=== PATIENT | male | born 1965 | race Caucasian/White ===

== ENCOUNTER 2021-02-14 12:21 | Inpatient (IN) ==
[2021-02-14 15:03] LABS: Basophils % 0.4 % (0.0-0.8); Hematocrit 32.9 VOL% (42.0-52.0); Hemoglobin 11.2 GM/DL (14.0-18.0); Immature Granulocytes % 0.4 %; Immature Granulocytes Absolute 0.01 #; Lymphocytes # 0.3 10*3/uL (1.4-4.0); Lymphocytes % 12.9 % (21.2-54.2); Mean Platelet Volume 11.6 FL (9.6-12.0); Monocytes % 5.9 % (1.7-12.7); Neutrophils % 80.4 % (38.7-73.9); Platelet Count 127 T/CUMM (130-400); Red Cell Distribution Width 12.7 % (9.3-17.3); White Blood Count 2.6 T/CUMM (4-12)
[2021-02-14 15:19] LABS: Calcium 7.8 MG/DL (8.5-10.1); Osmolality,Calculated 264.5 MOS/KG (273-304); Potassium 3.7 MMOL/L (3.5-5.1)
[2021-02-14] MEDS ORDERED: DEXTROSE 50% 25 GM/50 ML VIAL IV PRN (18:17)
[2021-02-14] MEDS ORDERED: GLUCAGON 1 MG VIAL IM PRN (18:17)
[2021-02-14] MEDS ORDERED: KETOROLAC 30 MG/1 ML VIAL IV ONE (18:17)
[2021-02-14] MEDS ORDERED: ONDANSETRON 4 MG/2 ML VIAL IV PRN (18:17)
[2021-02-14] MEDS ORDERED: NICOTINE 21 MG/24 HR PATCH TRANSDERM PRN (18:40)
[2021-02-14] MEDS: AZITHROMYCIN INJ 500 MG in SODIUM CHLORIDE 0.9% 250 ML IV SCH (18:49)
[2021-02-14] MEDS: ACETAMINOPHEN 325 MG TABLET PO PRN (21:40)
[2021-02-14] MEDS: SODIUM CHLORIDE 0.9% 1,000 ML IV SCH (21:41)
[2021-02-14] MEDS: cefTRIAXone 1,000 MG in SODIUM CHLORIDE 0.9% 100 ML IV SCH (21:41)
[2021-02-14 22:02] LABS: Basophils % 0.4 % (0.0-0.8); Eosinophils # 0.2 10*3/uL (0.0-0.87); Eosinophils % 7.9 % (0.00-10.9); Hematocrit 33.5 VOL% (42.0-52.0); Hemoglobin 11.1 GM/DL (14.0-18.0); Immature Granulocytes % 0.8 %; Immature Granulocytes Absolute 0.02 #; Lymphocytes # 0.2 10*3/uL (1.4-4.0); Lymphocytes % 8.6 % (21.2-54.2); Mean Corpuscular HGB Conc 33.1 GM/DL (32-36); Mean Corpuscular Volume 95.4 FL (87-102); Mean Platelet Volume 11.5 FL (9.6-12.0); Monocytes % 4.5 % (1.7-12.7); Neutrophils % 77.8 % (38.7-73.9); Platelet Count 124 T/CUMM (130-400); Red Blood Count 3.51 MC/CUMM (3.8-5.5); White Blood Count 2.7 T/CUMM (4-12)
[2021-02-14 22:20] LABS: PT Patient Result 11.6 SECS (10.5-12.0); Partial Thromboplastin Time 32.7 SECS (23.8-32.1)
[2021-02-14 23:30] LABS: Platelet Estimate Adequate
[2021-02-15] MEDS: SODIUM CHLORIDE 0.9% 1,000 ML IV SCH (05:47)
[2021-02-15 07:18] LABS: Basophils % 0.4 % (0.0-0.8); Eosinophils # 0.2 10*3/uL (0.0-0.87); Eosinophils % 7.4 % (0.00-10.9); Hematocrit 33.1 VOL% (42.0-52.0); Hemoglobin 11.5 GM/DL (14.0-18.0); Immature Granulocytes % 0.4 %; Immature Granulocytes Absolute 0.01 #; Lymphocytes # 0.4 10*3/uL (1.4-4.0); Mean Corpuscular HGB Conc 34.7 GM/DL (32-36); Mean Platelet Volume 11.9 FL (9.6-12.0); Monocytes % 6.3 % (1.7-12.7); Neutrophils % 72.5 % (38.7-73.9); Platelet Count 106 T/CUMM (130-400); Red Blood Count 3.52 MC/CUMM (3.8-5.5); Red Cell Distribution Width 12.6 % (9.3-17.3); White Blood Count 2.9 T/CUMM (4-12)
[2021-02-15 07:37] LABS: Albumin 2.4 G/DL (3.4-5.0); Bilirubin,Total 0.7 MG/DL (0.20-1.00); Calcium 7.7 MG/DL (8.5-10.1); Osmolality,Calculated 267.2 MOS/KG (273-304); Potassium 4.1 MMOL/L (3.5-5.1)
[2021-02-15 07:46] LABS: Eosinophils 3 % (0-10); Lymphocytes 7 % (20-55); Segmented Neutrophils 83 % (50-85); Total Cells Counted 100
[2021-02-15 07:47] LABS: Hypochromia Slight; Microcytosis Slight; Platelet Estimate Decreased
[2021-02-15 09:37] LABS: Hemoglobin A1 (Alkaline) 98.1 % (96.5-98.5); Hemoglobin A2 (Alkaline) 1.9 % (1.5-3.5)
[2021-02-15 09:42] LABS: Sedimentation Rate-Westergren 57 MM/HR (0-20)
[2021-02-15] MEDS: ACETAMINOPHEN 325 MG TABLET PO PRN ×2 (09:49→22:26)
[2021-02-15] MEDS: PANTOPRAZOLE 40 MG TABLET PO SCH (11:22)
[2021-02-15] MEDS ORDERED: DIAZEPAM 5 MG TABLET PO ONE (12:38)
[2021-02-15] MEDS: SODIUM CHLORIDE 0.45% 1,000 ML IV SCH (13:40)
[2021-02-15 17:43] LABS: Folate 5.85 NG/ML (5.38-24.0); Vitamin B12 302 PG/ML (211-911)
[2021-02-15] MEDS: AZITHROMYCIN INJ 500 MG in SODIUM CHLORIDE 0.9% 250 ML IV SCH (18:52)
[2021-02-15] MEDS: cefTRIAXone 1,000 MG in SODIUM CHLORIDE 0.9% 100 ML IV SCH (22:27)
[2021-02-16 04:33] LABS: Basophils % 0.4 % (0.0-0.8); Eosinophils # 0.1 10*3/uL (0.0-0.87); Eosinophils % 3.1 % (0.00-10.9); Hematocrit 34.5 VOL% (42.0-52.0); Hemoglobin 11.4 GM/DL (14.0-18.0); Immature Granulocytes % 0.4 %; Immature Granulocytes Absolute 0.01 #; Lymphocytes # 0.3 10*3/uL (1.4-4.0); Lymphocytes % 13.3 % (21.2-54.2); Mean Corpuscular Volume 95.6 FL (87-102); Mean Platelet Volume 11.7 FL (9.6-12.0); Monocytes % 3.6 % (1.7-12.7); Neutrophils % 79.2 % (38.7-73.9); Platelet Count 119 T/CUMM (130-400); Red Blood Count 3.61 MC/CUMM (3.8-5.5); Red Cell Distribution Width 12.8 % (9.3-17.3); White Blood Count 2.3 T/CUMM (4-12)
[2021-02-16 04:56] LABS: Calcium 7.7 MG/DL (8.5-10.1); Osmolality,Calculated 260.7 MOS/KG (273-304); Potassium 3.6 MMOL/L (3.5-5.1)
[2021-02-16 04:58] LABS: Band Neutrophils 3 % (0-10); Lymphocytes 3 % (20-55); Segmented Neutrophils 87 % (50-85); Total Cells Counted 100
[2021-02-16 04:59] LABS: Platelet Estimate Normal
[2021-02-16] MEDS: PANTOPRAZOLE 40 MG TABLET PO SCH (09:13)
[2021-02-16] MEDS: ACETAMINOPHEN 325 MG TABLET PO PRN (09:19)
[2021-02-16 14:51] LABS: Bilirubin,Urine Negative (Negative); Blood, Urine Negative (Negative); Glucose,Urine (UA) Negative (Negative); Ketones,Urine Negative (Negative); Mucus,Urine Occasional /LPF (Occasional); Nitrite,Urine Negative (Negative); Protein,Urine Negative; RBC,Urine 1 /HPF (0-4); Squamous Epithelial Cell,Urine Occasional /HPF (0-10); Urine Appearance CLEAR (Clear); Urine Color Amber (Yellow); Urine Specific Gravity 1.017 (1.001-1.035)
[2021-02-16] MEDS: SODIUM CHLORIDE 0.45% 1,000 ML IV SCH (15:59)
[2021-02-16] MEDS: AZITHROMYCIN INJ 500 MG in SODIUM CHLORIDE 0.9% 250 ML IV SCH (19:29)
[2021-02-16] MEDS: cefTRIAXone 1,000 MG in SODIUM CHLORIDE 0.9% 100 ML IV SCH (20:46)
[2021-02-17] MEDS: IBUPROFEN 600 MG TABLET PO PRN ×2 (05:23→15:39)
[2021-02-17 05:29] LABS: Basophils % 0.4 % (0.0-0.8); Eosinophils % 1.5 % (0.00-10.9); Hematocrit 35.1 VOL% (42.0-52.0); Hemoglobin 11.9 GM/DL (14.0-18.0); Immature Granulocytes % 0.4 %; Immature Granulocytes Absolute 0.01 #; Lymphocytes # 0.4 10*3/uL (1.4-4.0); Lymphocytes % 16.5 % (21.2-54.2); Mean Corpuscular HGB Conc 33.9 GM/DL (32-36); Mean Corpuscular Volume 93.9 FL (87-102); Monocytes % 5.7 % (1.7-12.7); Neutrophils % 75.5 % (38.7-73.9); Platelet Count 116 T/CUMM (130-400); Red Blood Count 3.74 MC/CUMM (3.8-5.5); Red Cell Distribution Width 12.6 % (9.3-17.3); White Blood Count 2.6 T/CUMM (4-12)
[2021-02-17 05:45] LABS: Calcium 7.9 MG/DL (8.5-10.1); Osmolality,Calculated 253.2 MOS/KG (273-304); Potassium 3.7 MMOL/L (3.5-5.1)
[2021-02-17 06:40] LABS: Band Neutrophils 3 % (0-10); Lymphocytes 20 % (20-55); Platelet Estimate Adequate; Schistocytes Slight; Segmented Neutrophils 69 % (50-85); Total Cells Counted 100
[2021-02-17] MEDS: PANTOPRAZOLE 40 MG TABLET PO SCH (10:07)
[2021-02-17] MEDS ORDERED: MAGNESIUM SULF RIDER 4 GM/100 ML PREMIX IV PRN (10:28)
[2021-02-17] MEDS ORDERED: MAGNESIUM SULF RIDER 2 GM/50 ML PREMIX IV PRN (10:28)
[2021-02-17] MEDS: MICAFUNGIN 100 MG in SODIUM CHLORIDE 0.9% 100 ML IV SCH (11:58)
[2021-02-17] MEDS: CEFEPIME 1,000 MG in SODIUM CHLORIDE 0.9% 100 ML IV SCH ×3 (13:11→23:35)
[2021-02-17] MEDS: VANCOMYCIN INJ 1,000 MG in SODIUM CHLORIDE 0.9% 250 ML IV SCH (13:53)
[2021-02-17 16:31] LABS: M. Tuberculosis PCR Result Negative (Negative); M. Tuberculosis PCR Source SPUTUM
[2021-02-18] MEDS: VANCOMYCIN INJ 1,000 MG in SODIUM CHLORIDE 0.9% 250 ML IV SCH ×2 (00:31→16:40)
[2021-02-18] MEDS: IBUPROFEN 600 MG TABLET PO PRN ×2 (05:43→17:08)
[2021-02-18] MEDS: CEFEPIME 1,000 MG in SODIUM CHLORIDE 0.9% 100 ML IV SCH ×3 (05:43→20:54)
[2021-02-18 07:06] LABS: Hematocrit 31.4 VOL% (42.0-52.0); Hemoglobin 11.2 GM/DL (14.0-18.0); Immature Granulocytes % 0.4 %; Immature Granulocytes Absolute 0.01 #; Lymphocytes # 0.4 10*3/uL (1.4-4.0); Lymphocytes % 15.3 % (21.2-54.2); Mean Corpuscular HGB Conc 35.7 GM/DL (32-36); Mean Corpuscular Volume 91.5 FL (87-102); Mean Platelet Volume 12.7 FL (9.6-12.0); Monocytes % 4.1 % (1.7-12.7); Neutrophils % 80.2 % (38.7-73.9); Platelet Count 103 T/CUMM (130-400); Red Blood Count 3.43 MC/CUMM (3.8-5.5); Red Cell Distribution Width 12.5 % (9.3-17.3); White Blood Count 2.7 T/CUMM (4-12)
[2021-02-18 07:35] LABS: Calcium 7.5 MG/DL (8.5-10.1); Osmolality,Calculated 251.4 MOS/KG (273-304); Potassium 3.6 MMOL/L (3.5-5.1)
[2021-02-18 09:07] LABS: Ovalocytes Slight; Platelet Estimate Adequate; Polychromasia Slight
[2021-02-18] MEDS: PANTOPRAZOLE 40 MG TABLET PO SCH (09:24)
[2021-02-18] MEDS: SODIUM CHLORIDE 0.9% 1,000 ML IV SCH (12:30)
[2021-02-18] MEDS: MICAFUNGIN 100 MG in SODIUM CHLORIDE 0.9% 100 ML IV SCH (12:31)
[2021-02-19] MEDS: IBUPROFEN 600 MG TABLET PO PRN (04:48)
[2021-02-19] MEDS: VANCOMYCIN INJ 1,000 MG in SODIUM CHLORIDE 0.9% 250 ML IV SCH (04:48)
[2021-02-19 05:30] LABS: Basophils % 0.4 % (0.0-0.8); Eosinophils # 0.1 10*3/uL (0.0-0.87); Eosinophils % 2.2 % (0.00-10.9); Hemoglobin 11.6 GM/DL (14.0-18.0); Immature Granulocytes % 1.1 %; Immature Granulocytes Absolute 0.03 #; Lymphocytes # 0.3 10*3/uL (1.4-4.0); Lymphocytes % 11.1 % (21.2-54.2); Mean Corpuscular HGB Conc 34.1 GM/DL (32-36); Mean Corpuscular Volume 91.6 FL (87-102); Mean Platelet Volume 12.9 FL (9.6-12.0); Monocytes % 3.6 % (1.7-12.7); Neutrophils % 81.6 % (38.7-73.9); Platelet Count 107 T/CUMM (130-400); Red Blood Count 3.71 MC/CUMM (3.8-5.5); Red Cell Distribution Width 12.7 % (9.3-17.3); White Blood Count 2.8 T/CUMM (4-12)
[2021-02-19 05:50] LABS: Calcium 7.3 MG/DL (8.5-10.1); Osmolality,Calculated 257.8 MOS/KG (273-304); Potassium 3.7 MMOL/L (3.5-5.1)
[2021-02-19 05:57] LABS: Band Neutrophils 2 % (0-10); Eosinophils 2 % (0-10); Hypochromia Slight; Lymphocytes 4 % (20-55); Microcytosis Slight; Platelet Estimate Decreased; Segmented Neutrophils 85 % (50-85); Total Cells Counted 100
[2021-02-19] MEDS: CEFEPIME 1,000 MG in SODIUM CHLORIDE 0.9% 100 ML IV SCH ×4 (06:30→21:44)
[2021-02-19] MEDS: SODIUM CHLORIDE 0.9% 1,000 ML IV SCH ×2 (07:02→19:18)
[2021-02-19] MEDS: PANTOPRAZOLE 40 MG TABLET PO SCH (09:59)
[2021-02-19] MEDS ORDERED: DIAZEPAM 5 MG TABLET PO ONE (10:34)
[2021-02-19] MEDS: MICAFUNGIN 100 MG in SODIUM CHLORIDE 0.9% 100 ML IV SCH (11:09)
[2021-02-19] MEDS: FLUCONAZOLE INJ 400 MG/200 ML PREMIX IV SCH (16:37)
[2021-02-20] MEDS: SODIUM CHLORIDE 0.9% 1,000 ML IV SCH (02:35)
[2021-02-20] MEDS: CEFEPIME 1,000 MG in SODIUM CHLORIDE 0.9% 100 ML IV SCH ×4 (02:35→21:29)
[2021-02-20 06:19] LABS: Basophils % 0.5 % (0.0-0.8); Hematocrit 35.1 VOL% (42.0-52.0); Hemoglobin 11.8 GM/DL (14.0-18.0); Immature Granulocytes Absolute 0.04 #; Lymphocytes # 0.3 10*3/uL (1.4-4.0); Lymphocytes % 8.5 % (21.2-54.2); Mean Corpuscular HGB Conc 33.6 GM/DL (32-36); Mean Corpuscular Volume 93.6 FL (87-102); Monocytes % 5.2 % (1.7-12.7); Neutrophils % 84.8 % (38.7-73.9); Platelet Count 119 T/CUMM (130-400); Red Blood Count 3.75 MC/CUMM (3.8-5.5); White Blood Count 3.9 T/CUMM (4-12)
[2021-02-20 06:45] LABS: Lymphocytes 6 % (20-55); Platelet Estimate Normal; Segmented Neutrophils 83 % (50-85); Total Cells Counted 100
[2021-02-20 06:50] LABS: Calcium 7.8 MG/DL (8.5-10.1); Osmolality,Calculated 255.1 MOS/KG (273-304); Potassium 3.5 MMOL/L (3.5-5.1)
[2021-02-20] MEDS: PANTOPRAZOLE 40 MG TABLET PO SCH (08:39)
[2021-02-20] MEDS ORDERED: FUROSEMIDE 40 MG/4 ML VIAL IV ONE (08:52)
[2021-02-20] MEDS: FLUCONAZOLE INJ 400 MG/200 ML PREMIX IV SCH (15:20)
[2021-02-21] MEDS: CEFEPIME 1,000 MG in SODIUM CHLORIDE 0.9% 100 ML IV SCH ×4 (02:50→21:26)
[2021-02-21 05:43] LABS: Basophils % 0.7 % (0.0-0.8); Eosinophils # 0.1 10*3/uL (0.0-0.87); Eosinophils % 1.7 % (0.00-10.9); Hemoglobin 10.9 GM/DL (14.0-18.0); Immature Granulocytes Absolute 0.04 #; Lymphocytes # 0.3 10*3/uL (1.4-4.0); Lymphocytes % 7.7 % (21.2-54.2); Mean Corpuscular HGB Conc 35.2 GM/DL (32-36); Mean Corpuscular Volume 91.4 FL (87-102); Mean Platelet Volume 12.8 FL (9.6-12.0); Monocytes % 5.5 % (1.7-12.7); Neutrophils % 83.4 % (38.7-73.9); Platelet Count 107 T/CUMM (130-400); Red Blood Count 3.39 MC/CUMM (3.8-5.5); Red Cell Distribution Width 13.1 % (9.3-17.3)
[2021-02-21 05:59] LABS: Calcium 7.8 MG/DL (8.5-10.1); Osmolality,Calculated 257.1 MOS/KG (273-304); Potassium 3.3 MMOL/L (3.5-5.1)
[2021-02-21] MEDS ORDERED: POTASSIUM CHLORIDE 20 MEQ TABLET PO ONE ×2 (09:00→16:00)
[2021-02-21] MEDS: PANTOPRAZOLE 40 MG TABLET PO SCH (09:35)
[2021-02-21] MEDS: FLUCONAZOLE INJ 400 MG/200 ML PREMIX IV SCH (15:53)
[2021-02-21] MEDS ORDERED: DEXTROSE 5% IV SCH (16:30)
[2021-02-21] MEDS ORDERED: AMPHOTERICIN B LIPOSOMAL IV SCH (16:30)
[2021-02-21] MEDS ORDERED: FLUCYTOSINE 500 MG CAPSULE PO SCH (18:00)
[2021-02-22] MEDS: CEFEPIME 1,000 MG in SODIUM CHLORIDE 0.9% 100 ML IV SCH ×2 (02:12→11:00)
[2021-02-22 05:44] LABS: Basophils % 0.7 % (0.0-0.8); Eosinophils # 0.1 10*3/uL (0.0-0.87); Eosinophils % 2.6 % (0.00-10.9); Hematocrit 30.2 VOL% (42.0-52.0); Hemoglobin 10.5 GM/DL (14.0-18.0); Immature Granulocytes % 1.2 %; Immature Granulocytes Absolute 0.05 #; Lymphocytes # 0.4 10*3/uL (1.4-4.0); Lymphocytes % 8.7 % (21.2-54.2); Mean Corpuscular HGB Conc 34.8 GM/DL (32-36); Mean Corpuscular Volume 91.8 FL (87-102); Mean Platelet Volume 12.9 FL (9.6-12.0); Neutrophils % 81.8 % (38.7-73.9); Platelet Count 97 T/CUMM (130-400); Red Blood Count 3.29 MC/CUMM (3.8-5.5); Red Cell Distribution Width 13.2 % (9.3-17.3); White Blood Count 4.2 T/CUMM (4-12)
[2021-02-22 06:05] LABS: Calcium 7.9 MG/DL (8.5-10.1); Osmolality,Calculated 255.2 MOS/KG (273-304); Potassium 3.8 MMOL/L (3.5-5.1)
[2021-02-22 06:07] LABS: Eosinophils 6 % (0-10); Lymphocytes 9 % (20-55); Platelet Estimate Decreased; Segmented Neutrophils 82 % (50-85); Total Cells Counted 100
[2021-02-22 06:08] LABS: Hypochromia Slight
[2021-02-22] MEDS ORDERED: FUROSEMIDE 40 MG/4 ML VIAL IV ONE (07:49)
[2021-02-22 09:49] LABS: Appearance,CSF Clear; Lymphocytes,CSF 89 %; Neutrophils,CSF 11 %; Red Blood Cell,CSF 1269 C/CUMM; White Blood Cell,CSF 14 C/CUMM
[2021-02-22] MEDS: SODIUM CHLORIDE 1 GM TABLET PO SCH ×2 (09:56→21:24)
[2021-02-22] MEDS: PANTOPRAZOLE 40 MG TABLET PO SCH (09:57)
[2021-02-22 10:17] LABS: Albumin 1.8 G/DL (3.4-5.0); Bilirubin,Direct 0.42 MG/DL (0.0-0.20); Bilirubin,Indirect 0.7 MG/DL (0.0-1.0); Bilirubin,Total 1.1 MG/DL (0.20-1.00); Total Protein 5.1 G/DL (6.4-8.2)
[2021-02-22] MEDS ORDERED: MAGNESIUM SULF RIDER 1 GM/100 ML PREMIX IV ONE (11:00)
[2021-02-22] MEDS: SULFAMETHOX/TRIMETHOPRIM 800-160 MG TABLET PO SCH (11:01)
[2021-02-22] MEDS: AMPHOTERICIN B LIPOSOMAL IV SCH (12:10)
[2021-02-22] MEDS: DEXTROSE 5% IV SCH (12:10)
[2021-02-22] MEDS: FLUCYTOSINE 500 MG CAPSULE PO SCH ×3 (12:11→21:25)
[2021-02-22] MEDS ORDERED: FLUCONAZOLE INJ 400 MG/200 ML PREMIX IV SCH (15:00)
[2021-02-23] MEDS: FLUCYTOSINE 500 MG CAPSULE PO SCH ×4 (03:43→23:19)
[2021-02-23 05:35] LABS: Basophils % 0.6 % (0.0-0.8); Eosinophils # 0.2 10*3/uL (0.0-0.87); Hematocrit 30.9 VOL% (42.0-52.0); Hemoglobin 10.5 GM/DL (14.0-18.0); Immature Granulocytes % 1.2 %; Immature Granulocytes Absolute 0.06 #; Lymphocytes # 0.3 10*3/uL (1.4-4.0); Lymphocytes % 5.9 % (21.2-54.2); Mean Corpuscular Volume 92.2 FL (87-102); Mean Platelet Volume 13.8 FL (9.6-12.0); Monocytes % 4.7 % (1.7-12.7); Neutrophils % 83.6 % (38.7-73.9); Red Blood Count 3.35 MC/CUMM (3.8-5.5); Red Cell Distribution Width 13.3 % (9.3-17.3); White Blood Count 4.9 T/CUMM (4-12)
[2021-02-23 05:42] LABS: Albumin 1.8 G/DL (3.4-5.0); Calcium 7.7 MG/DL (8.5-10.1); Osmolality,Calculated 260.8 MOS/KG (273-304); Potassium 3.8 MMOL/L (3.5-5.1); Total Protein 5.1 G/DL (6.4-8.2)
[2021-02-23 05:47] LABS: Platelet Count 90 T/CUMM (130-400)
[2021-02-23 06:09] LABS: Platelet Estimate Decreased
[2021-02-23 06:10] LABS: Anisocytosis 1+; Helmet Cells Few; Macrocytosis Slight; Polychromasia Slight
[2021-02-23] MEDS: SODIUM CHLORIDE 1 GM TABLET PO SCH ×2 (10:05→21:24)
[2021-02-23] MEDS: SULFAMETHOX/TRIMETHOPRIM 800-160 MG TABLET PO SCH (10:06)
[2021-02-23] MEDS: PANTOPRAZOLE 40 MG TABLET PO SCH (10:06)
[2021-02-23] MEDS: DEXTROSE 5% IV SCH (14:24)
[2021-02-23] MEDS: AMPHOTERICIN B LIPOSOMAL IV SCH (14:24)
[2021-02-23 17:26] LABS: % CD4 (T Cells) 6 % (32-64); % CD8 (T Cells) 57 % (11-40); 4/8 Ratio 0.1 (>=0.9)
[2021-02-23] MEDS: POTASSIUM CHLORIDE 10 MEQ TABLET PO SCH (17:34)
[2021-02-23 19:20] LABS: CSF Crypto neoforman/gatti PCR Positive (Negative); CSF Cytomegalovirus PCR Negative (Negative); CSF Enterovirus PCR Negative (Negative); CSF Escherichia coli K1 PCR Negative (Negative); CSF Haemophilus influenzae PCR Negative (Negative); CSF Herpes Simplex Virus 1 PCR Negative (Negative); CSF Herpes Simplex Virus 2 PCR Negative (Negative); CSF Human Herpes Virus 6 PCR Negative (Negative); CSF Human Parechovirus PCR Negative (Negative); CSF Listeria monocytogenes PCR Negative (Negative); CSF Neisseria meningitidis PCR Negative (Negative); CSF Streptococcus agalacti PCR Negative (Negative); CSF Streptococcus pneumon PCR Negative (Negative); CSF Varicella Zoster Virus PCR Negative (Negative); Specimen source CEREBROSPINAL FLUID
[2021-02-24] MEDS: FLUCYTOSINE 500 MG CAPSULE PO SCH ×4 (06:16→23:39)
[2021-02-24 07:18] LABS: Albumin 1.9 G/DL (3.4-5.0); Calcium 8.4 MG/DL (8.5-10.1); Osmolality,Calculated 266.5 MOS/KG (273-304); Potassium 4.2 MMOL/L (3.5-5.1); Total Protein 5.5 G/DL (6.4-8.2)
[2021-02-24 08:53] LABS: Basophils % 0.6 % (0.0-0.8); Hematocrit 32.1 VOL% (42.0-52.0); Hemoglobin 10.8 GM/DL (14.0-18.0); Immature Granulocytes % 1.3 %; Immature Granulocytes Absolute 0.06 #; Lymphocytes # 0.4 10*3/uL (1.4-4.0); Lymphocytes % 8.9 % (21.2-54.2); Mean Corpuscular HGB Conc 33.6 GM/DL (32-36); Mean Corpuscular Volume 93.3 FL (87-102); Mean Platelet Volume 13.1 FL (9.6-12.0); Monocytes % 7.4 % (1.7-12.7); Neutrophils % 81.8 % (38.7-73.9); Red Blood Count 3.44 MC/CUMM (3.8-5.5); Red Cell Distribution Width 13.7 % (9.3-17.3); White Blood Count 4.6 T/CUMM (4-12)
[2021-02-24 08:54] LABS: Platelet Count 92 T/CUMM (130-400)
[2021-02-24] MEDS: PANTOPRAZOLE 40 MG TABLET PO SCH (10:03)
[2021-02-24] MEDS: POTASSIUM CHLORIDE 10 MEQ TABLET PO SCH ×2 (10:03→17:46)
[2021-02-24] MEDS: SULFAMETHOX/TRIMETHOPRIM 800-160 MG TABLET PO SCH (10:03)
[2021-02-24] MEDS: SODIUM CHLORIDE 1 GM TABLET PO SCH ×2 (10:03→21:15)
[2021-02-24] MEDS: MEGESTROL 40 MG TABLET PO SCH ×2 (12:01→21:15)
[2021-02-24] MEDS: DEXTROSE 5% IV SCH (15:04)
[2021-02-24] MEDS: AMPHOTERICIN B LIPOSOMAL IV SCH (15:04)
[2021-02-25 05:43] LABS: Basophils % 0.7 % (0.0-0.8); Eosinophils # 0.1 10*3/uL (0.0-0.87); Eosinophils % 1.9 % (0.00-10.9); Hematocrit 33.4 VOL% (42.0-52.0); Hemoglobin 11.2 GM/DL (14.0-18.0); Immature Granulocytes % 1.5 %; Immature Granulocytes Absolute 0.09 #; Lymphocytes # 0.5 10*3/uL (1.4-4.0); Lymphocytes % 8.9 % (21.2-54.2); Mean Corpuscular HGB Conc 33.5 GM/DL (32-36); Mean Platelet Volume 13.6 FL (9.6-12.0); Monocytes % 5.6 % (1.7-12.7); Neutrophils % 81.4 % (38.7-73.9); Red Blood Count 3.48 MC/CUMM (3.8-5.5); Red Cell Distribution Width 14.1 % (9.3-17.3); White Blood Count 5.9 T/CUMM (4-12)
[2021-02-25 05:51] LABS: Platelet Count 89 T/CUMM (130-400)
[2021-02-25 06:06] LABS: Platelet Estimate Decreased
[2021-02-25] MEDS: FLUCYTOSINE 500 MG CAPSULE PO SCH ×4 (06:23→23:09)
[2021-02-25 06:29] LABS: Albumin 1.8 G/DL (3.4-5.0); Bilirubin,Total 0.9 MG/DL (0.20-1.00); Calcium 8.4 MG/DL (8.5-10.1); Osmolality,Calculated 262.8 MOS/KG (273-304); Potassium 4.4 MMOL/L (3.5-5.1); Total Protein 5.2 G/DL (6.4-8.2)
[2021-02-25] MEDS: POTASSIUM CHLORIDE 10 MEQ TABLET PO SCH ×2 (09:01→17:24)
[2021-02-25] MEDS: MEGESTROL 40 MG TABLET PO SCH ×2 (09:01→20:54)
[2021-02-25] MEDS: PANTOPRAZOLE 40 MG TABLET PO SCH (09:02)
[2021-02-25] MEDS: SODIUM CHLORIDE 1 GM TABLET PO SCH ×2 (09:02→20:54)
[2021-02-25] MEDS: SULFAMETHOX/TRIMETHOPRIM 800-160 MG TABLET PO SCH (09:02)
[2021-02-25] MEDS: DEXTROSE 5% IV SCH (15:00)
[2021-02-25] MEDS: AMPHOTERICIN B LIPOSOMAL IV SCH (15:00)
[2021-02-26 06:57] LABS: Basophils % 0.5 % (0.0-0.8); Eosinophils # 0.3 10*3/uL (0.0-0.87); Eosinophils % 4.9 % (0.00-10.9); Hematocrit 31.6 VOL% (42.0-52.0); Hemoglobin 10.7 GM/DL (14.0-18.0); Immature Granulocytes % 1.1 %; Immature Granulocytes Absolute 0.07 #; Lymphocytes # 0.4 10*3/uL (1.4-4.0); Lymphocytes % 7.2 % (21.2-54.2); Mean Corpuscular HGB Conc 33.9 GM/DL (32-36); Mean Corpuscular Volume 94.6 FL (87-102); Mean Platelet Volume 13.2 FL (9.6-12.0); Monocytes % 4.6 % (1.7-12.7); Neutrophils % 81.7 % (38.7-73.9); Platelet Count 107 T/CUMM (130-400); Red Blood Count 3.34 MC/CUMM (3.8-5.5); Red Cell Distribution Width 13.8 % (9.3-17.3); White Blood Count 6.2 T/CUMM (4-12)
[2021-02-26] MEDS: FLUCYTOSINE 500 MG CAPSULE PO SCH ×3 (07:16→18:32)
[2021-02-26 07:22] LABS: Platelet Estimate Decreased
[2021-02-26 07:28] LABS: Bilirubin,Total 1.6 MG/DL (0.20-1.00); Calcium 9.1 MG/DL (8.5-10.1); Osmolality,Calculated 268.4 MOS/KG (273-304); Potassium 4.2 MMOL/L (3.5-5.1); Total Protein 5.5 G/DL (6.4-8.2)
[2021-02-26] MEDS: SODIUM CHLORIDE 1 GM TABLET PO SCH ×2 (10:26→20:46)
[2021-02-26] MEDS: MEGESTROL 40 MG TABLET PO SCH (10:27)
[2021-02-26] MEDS: PANTOPRAZOLE 40 MG TABLET PO SCH (10:28)
[2021-02-26] MEDS: POTASSIUM CHLORIDE 10 MEQ TABLET PO SCH ×2 (10:28→16:40)
[2021-02-26] MEDS: SULFAMETHOX/TRIMETHOPRIM 800-160 MG TABLET PO SCH (10:28)
[2021-02-26 13:56] LABS: QuantiFERON-Tb Gold Pl Negative (Negative); TB2 Ag Minus Result 0 IU/mL
[2021-02-26] MEDS: AMPHOTERICIN B LIPOSOMAL IV SCH (14:36)
[2021-02-26] MEDS: DEXTROSE 5% IV SCH (14:36)
[2021-02-26] MEDS: MEGESTROL ES 125 MG/ML 30 ML/BOTTLE PO SCH (16:41)
[2021-02-27] MEDS: FLUCYTOSINE 500 MG CAPSULE PO SCH ×5 (00:28→23:17)
[2021-02-27 06:26] LABS: Bilirubin,Total 0.9 MG/DL (0.20-1.00); Hematocrit 31.2 VOL% (42.0-52.0); Hemoglobin 10.6 GM/DL (14.0-18.0); Immature Granulocytes % 1.2 %; Immature Granulocytes Absolute 0.05 #; Lymphocytes # 0.3 10*3/uL (1.4-4.0); Lymphocytes % 7.4 % (21.2-54.2); Mean Corpuscular Volume 95.1 FL (87-102); Mean Platelet Volume 12.9 FL (9.6-12.0); Monocytes % 6.4 % (1.7-12.7); Osmolality,Calculated 268.4 MOS/KG (273-304); Platelet Count 101 T/CUMM (130-400); Potassium 4.4 MMOL/L (3.5-5.1); Red Blood Count 3.28 MC/CUMM (3.8-5.5); Red Cell Distribution Width 14.4 % (9.3-17.3); Total Protein 5.4 G/DL (6.4-8.2); White Blood Count 4.2 T/CUMM (4-12)
[2021-02-27] MEDS: SODIUM CHLORIDE 1 GM TABLET PO SCH ×2 (09:51→20:33)
[2021-02-27] MEDS: SULFAMETHOX/TRIMETHOPRIM 800-160 MG TABLET PO SCH (09:51)
[2021-02-27] MEDS: POLYETHYLENE GLYCOL POWDER 17 GM PACK PO SCH (09:51)
[2021-02-27] MEDS: POTASSIUM CHLORIDE 10 MEQ TABLET PO SCH ×2 (09:51→17:04)
[2021-02-27] MEDS: PANTOPRAZOLE 40 MG TABLET PO SCH (09:51)
[2021-02-27] MEDS: MEGESTROL ES 125 MG/ML 30 ML/BOTTLE PO SCH (09:55)
[2021-02-27] MEDS: AMPHOTERICIN B LIPOSOMAL IV SCH (14:00)
[2021-02-27] MEDS: methylPREDNISolone SOD SUC 40 MG/1 ML VIAL IV SCH ×2 (14:00→20:33)
[2021-02-27] MEDS: DEXTROSE 5% IV SCH (14:00)
[2021-02-27] MEDS: ALBUTEROL/IPRATROPIUM 3 ML NEB RESP TX SCH (19:13)
[2021-02-28] MEDS: ALBUTEROL/IPRATROPIUM 3 ML NEB RESP TX SCH ×5 (01:00→19:56)
[2021-02-28 05:35] LABS: Basophils % 0.2 % (0.0-0.8); Hematocrit 32.1 VOL% (42.0-52.0); Hemoglobin 10.9 GM/DL (14.0-18.0); Immature Granulocytes % 1.1 %; Immature Granulocytes Absolute 0.05 #; Lymphocytes # 0.3 10*3/uL (1.4-4.0); Lymphocytes % 5.6 % (21.2-54.2); Mean Corpuscular Volume 96.1 FL (87-102); Monocytes % 4.3 % (1.7-12.7); Neutrophils % 88.8 % (38.7-73.9); Platelet Count 109 T/CUMM (130-400); Red Blood Count 3.34 MC/CUMM (3.8-5.5); Red Cell Distribution Width 14.2 % (9.3-17.3); White Blood Count 4.5 T/CUMM (4-12)
[2021-02-28] MEDS: FLUCYTOSINE 500 MG CAPSULE PO SCH ×4 (05:51→23:07)
[2021-02-28] MEDS: methylPREDNISolone SOD SUC 40 MG/1 ML VIAL IV SCH ×2 (05:51→13:38)
[2021-02-28 06:11] LABS: Bilirubin,Total 1.1 MG/DL (0.20-1.00); Calcium 8.9 MG/DL (8.5-10.1); Osmolality,Calculated 264.8 MOS/KG (273-304); Potassium 5.4 MMOL/L (3.5-5.1); Total Protein 5.9 G/DL (6.4-8.2)
[2021-02-28] MEDS ORDERED: SODIUM POLYSTYRENE SULFATE 15 GM/60 ML BOTTLE PO STA (09:35)
[2021-02-28] MEDS: POTASSIUM CHLORIDE 10 MEQ TABLET PO SCH (09:58)
[2021-02-28] MEDS: SULFAMETHOX/TRIMETHOPRIM 800-160 MG TABLET PO SCH (10:00)
[2021-02-28] MEDS: POLYETHYLENE GLYCOL POWDER 17 GM PACK PO SCH (10:01)
[2021-02-28] MEDS: PANTOPRAZOLE 40 MG TABLET PO SCH (10:02)
[2021-02-28] MEDS: MEGESTROL ES 125 MG/ML 30 ML/BOTTLE PO SCH (10:06)
[2021-02-28] MEDS: DEXTROSE 5% IV SCH (13:49)
[2021-02-28] MEDS: AMPHOTERICIN B LIPOSOMAL IV SCH (13:49)
[2021-02-28] MEDS: ENOXAPARIN 40 MG/0.4 ML SYRINGE SUBCUT SCH (16:34)
[2021-03-01] MEDS: ALBUTEROL/IPRATROPIUM 3 ML NEB RESP TX SCH ×4 (01:20→20:41)
[2021-03-01] MEDS: FLUCYTOSINE 500 MG CAPSULE PO SCH ×4 (05:22→23:15)
[2021-03-01 06:01] LABS: Basophils % 0.1 % (0.0-0.8); Hematocrit 31.3 VOL% (42.0-52.0); Hemoglobin 10.3 GM/DL (14.0-18.0); Immature Granulocytes % 0.9 %; Immature Granulocytes Absolute 0.06 #; Lymphocytes # 0.3 10*3/uL (1.4-4.0); Lymphocytes % 4.2 % (21.2-54.2); Mean Corpuscular HGB Conc 32.9 GM/DL (32-36); Mean Corpuscular Volume 96.6 FL (87-102); Mean Platelet Volume 12.2 FL (9.6-12.0); Monocytes % 6.7 % (1.7-12.7); Neutrophils % 88.1 % (38.7-73.9); Platelet Count 129 T/CUMM (130-400); Red Blood Count 3.24 MC/CUMM (3.8-5.5); Red Cell Distribution Width 14.2 % (9.3-17.3); White Blood Count 6.7 T/CUMM (4-12)
[2021-03-01 06:30] LABS: Lymphocytes 6 % (20-55); Segmented Neutrophils 89 % (50-85); Total Cells Counted 100
[2021-03-01 06:31] LABS: Platelet Estimate Normal
[2021-03-01 06:34] LABS: Calcium 8.3 MG/DL (8.5-10.1); Osmolality,Calculated 268.7 MOS/KG (273-304); Potassium 4.5 MMOL/L (3.5-5.1)
[2021-03-01] MEDS: POLYETHYLENE GLYCOL POWDER 17 GM PACK PO SCH (08:47)
[2021-03-01] MEDS: PANTOPRAZOLE 40 MG TABLET PO SCH (08:47)
[2021-03-01] MEDS: SULFAMETHOX/TRIMETHOPRIM 800-160 MG TABLET PO SCH (08:47)
[2021-03-01] MEDS: MEGESTROL ES 125 MG/ML 30 ML/BOTTLE PO SCH (08:51)
[2021-03-01] MEDS: SODIUM CHLORIDE 0.9% 1,000 ML IV SCH (11:35)
[2021-03-01] MEDS: AMPHOTERICIN B LIPOSOMAL IV SCH (14:18)
[2021-03-01] MEDS: DEXTROSE 5% IV SCH (14:18)
[2021-03-01] MEDS: ENOXAPARIN 40 MG/0.4 ML SYRINGE SUBCUT SCH (14:28)
[2021-03-01] MEDS: IBUPROFEN 600 MG TABLET PO PRN (23:51)
[2021-03-02] MEDS: ALBUTEROL/IPRATROPIUM 3 ML NEB RESP TX SCH ×4 (00:13→20:13)
[2021-03-02] MEDS: FLUCYTOSINE 500 MG CAPSULE PO SCH (05:46)
[2021-03-02 06:33] LABS: Eosinophils % 0.8 % (0.00-10.9); Hematocrit 29.3 VOL% (42.0-52.0); Hemoglobin 9.8 GM/DL (14.0-18.0); Immature Granulocytes % 0.8 %; Immature Granulocytes Absolute 0.03 #; Lymphocytes # 0.2 10*3/uL (1.4-4.0); Lymphocytes % 5.8 % (21.2-54.2); Mean Corpuscular HGB Conc 33.4 GM/DL (32-36); Mean Corpuscular Volume 97.7 FL (87-102); Mean Platelet Volume 11.7 FL (9.6-12.0); Monocytes % 6.9 % (1.7-12.7); Neutrophils % 85.7 % (38.7-73.9); Platelet Count 126 T/CUMM (130-400); Red Cell Distribution Width 14.6 % (9.3-17.3); White Blood Count 3.6 T/CUMM (4-12)
[2021-03-02 06:57] LABS: Albumin 2.1 G/DL (3.4-5.0); Bilirubin,Total 0.9 MG/DL (0.20-1.00); Calcium 8.7 MG/DL (8.5-10.1); Osmolality,Calculated 270.5 MOS/KG (273-304); Potassium 4.6 MMOL/L (3.5-5.1); Total Protein 5.2 G/DL (6.4-8.2)
[2021-03-02] MEDS: SULFAMETHOX/TRIMETHOPRIM 800-160 MG TABLET PO SCH (09:35)
[2021-03-02] MEDS: PANTOPRAZOLE 40 MG TABLET PO SCH (09:35)
[2021-03-02] MEDS: SODIUM CHLORIDE 0.9% 1,000 ML IV SCH (09:35)
[2021-03-02] MEDS: MEGESTROL ES 125 MG/ML 30 ML/BOTTLE PO SCH (09:36)
[2021-03-02] MEDS: POLYETHYLENE GLYCOL POWDER 17 GM PACK PO SCH (09:36)
[2021-03-02] MEDS ORDERED: FLUCONAZOLE 800 MG/400 ML IV SCH (11:00)
[2021-03-02] MEDS: cefTRIAXone 1,000 MG in SODIUM CHLORIDE 0.9% 100 ML IV SCH (17:59)
[2021-03-02] MEDS: ENOXAPARIN 40 MG/0.4 ML SYRINGE SUBCUT SCH (18:01)
[2021-03-03] MEDS: ALBUTEROL/IPRATROPIUM 3 ML NEB RESP TX SCH ×4 (00:31→20:15)
[2021-03-03] MEDS: IBUPROFEN 600 MG TABLET PO PRN (01:58)
[2021-03-03 05:20] LABS: Basophils % 0.7 % (0.0-0.8); Hematocrit 26.6 VOL% (42.0-52.0); Immature Granulocytes % 0.7 %; Immature Granulocytes Absolute 0.02 #; Lymphocytes # 0.1 10*3/uL (1.4-4.0); Lymphocytes % 5.2 % (21.2-54.2); Mean Corpuscular HGB Conc 33.8 GM/DL (32-36); Mean Corpuscular Volume 96.4 FL (87-102); Mean Platelet Volume 11.6 FL (9.6-12.0); Monocytes % 8.2 % (1.7-12.7); Neutrophils % 85.2 % (38.7-73.9); Platelet Count 121 T/CUMM (130-400); Red Blood Count 2.76 MC/CUMM (3.8-5.5); White Blood Count 2.7 T/CUMM (4-12)
[2021-03-03 05:58] LABS: Calcium 8.3 MG/DL (8.5-10.1); Osmolality,Calculated 264.8 MOS/KG (273-304); Potassium 4.4 MMOL/L (3.5-5.1)
[2021-03-03] MEDS: SODIUM CHLORIDE 0.9% 1,000 ML IV SCH (08:00)
[2021-03-03] MEDS: MEGESTROL ES 125 MG/ML 30 ML/BOTTLE PO SCH (09:34)
[2021-03-03] MEDS: PANTOPRAZOLE 40 MG TABLET PO SCH (09:35)
[2021-03-03] MEDS: POLYETHYLENE GLYCOL POWDER 17 GM PACK PO SCH (09:35)
[2021-03-03] MEDS: SODIUM CHLORIDE 0.9% 500 ML IV SCH ×2 (11:33→14:38)
[2021-03-03] MEDS: FLUCYTOSINE 500 MG CAPSULE PO SCH ×3 (12:10→23:41)
[2021-03-03] MEDS: AMPHOTERICIN B LIPOSOMAL IV SCH (12:34)
[2021-03-03] MEDS: DEXTROSE 5% IV SCH (12:34)
[2021-03-03] MEDS: cefTRIAXone 1,000 MG in SODIUM CHLORIDE 0.9% 100 ML IV SCH (16:28)
[2021-03-03] MEDS: ENOXAPARIN 40 MG/0.4 ML SYRINGE SUBCUT SCH (16:31)
[2021-03-04] MEDS: ALBUTEROL/IPRATROPIUM 3 ML NEB RESP TX SCH ×4 (01:10→20:23)
[2021-03-04] MEDS: FLUCYTOSINE 500 MG CAPSULE PO SCH ×4 (05:05→23:10)
[2021-03-04 05:28] LABS: Basophils % 0.4 % (0.0-0.8); Hematocrit 27.1 VOL% (42.0-52.0); Hemoglobin 9.2 GM/DL (14.0-18.0); Immature Granulocytes % 1.3 %; Immature Granulocytes Absolute 0.03 #; Lymphocytes # 0.2 10*3/uL (1.4-4.0); Lymphocytes % 9.7 % (21.2-54.2); Mean Corpuscular HGB Conc 33.9 GM/DL (32-36); Mean Corpuscular Volume 95.1 FL (87-102); Mean Platelet Volume 11.2 FL (9.6-12.0); Monocytes % 6.8 % (1.7-12.7); Neutrophils % 81.8 % (38.7-73.9); Platelet Count 120 T/CUMM (130-400); Red Blood Count 2.85 MC/CUMM (3.8-5.5); Red Cell Distribution Width 15.2 % (9.3-17.3); White Blood Count 2.4 T/CUMM (4-12)
[2021-03-04 05:40] LABS: Osmolality,Calculated 265.5 MOS/KG (273-304); Potassium 4.4 MMOL/L (3.5-5.1)
[2021-03-04] MEDS ORDERED: MAGNESIUM SULF RIDER 4 GM/100 ML PREMIX IV PRN (08:07)
[2021-03-04] MEDS: MEGESTROL ES 125 MG/ML 30 ML/BOTTLE PO SCH (09:48)
[2021-03-04] MEDS: POLYETHYLENE GLYCOL POWDER 17 GM PACK PO SCH (09:49)
[2021-03-04] MEDS: PANTOPRAZOLE 40 MG TABLET PO SCH (09:49)
[2021-03-04] MEDS ORDERED: MAGNESIUM SULF RIDER 1 GM/100 ML PREMIX IV ONE (10:00)
[2021-03-04] MEDS: SODIUM CHLORIDE 0.9% 500 ML IV SCH ×2 (11:24→14:11)
[2021-03-04] MEDS: DEXTROSE 5% IV SCH (12:06)
[2021-03-04] MEDS: AMPHOTERICIN B LIPOSOMAL IV SCH (12:06)
[2021-03-04] MEDS: SODIUM CHLORIDE 0.9% 1,000 ML IV SCH (14:46)
[2021-03-04] MEDS: cefTRIAXone 1,000 MG in SODIUM CHLORIDE 0.9% 100 ML IV SCH (16:52)
[2021-03-04] MEDS: ENOXAPARIN 40 MG/0.4 ML SYRINGE SUBCUT SCH (16:55)
[2021-03-04] MEDS: MAGNESIUM SULF RIDER 2 GM/50 ML PREMIX IV PRN (19:26)
[2021-03-05] MEDS: ALBUTEROL/IPRATROPIUM 3 ML NEB RESP TX SCH ×4 (00:46→19:40)
[2021-03-05 04:49] LABS: Basophils # 0.1 10*3/uL (0.0-0.2); Basophils % 1.5 % (0.0-0.8); Eosinophils # 0.3 10*3/uL (0.0-0.87); Eosinophils % 9.1 % (0.00-10.9); Hematocrit 31.7 VOL% (42.0-52.0); Hemoglobin 10.4 GM/DL (14.0-18.0); Immature Granulocytes % 1.2 %; Immature Granulocytes Absolute 0.04 #; Lymphocytes # 0.4 10*3/uL (1.4-4.0); Lymphocytes % 10.7 % (21.2-54.2); Mean Corpuscular HGB Conc 32.8 GM/DL (32-36); Mean Corpuscular Volume 99.7 FL (87-102); Monocytes % 8.8 % (1.7-12.7); Neutrophils % 68.7 % (38.7-73.9); Platelet Count 111 T/CUMM (130-400); Red Blood Count 3.18 MC/CUMM (3.8-5.5); Red Cell Distribution Width 15.6 % (9.3-17.3); White Blood Count 3.3 T/CUMM (4-12)
[2021-03-05 05:16] LABS: Calcium 8.1 MG/DL (8.5-10.1); Osmolality,Calculated 260.8 MOS/KG (273-304); Potassium 4.2 MMOL/L (3.5-5.1)
[2021-03-05] MEDS: FLUCYTOSINE 500 MG CAPSULE PO SCH ×4 (05:56→23:16)
[2021-03-05 06:14] LABS: Hypochromia Slight
[2021-03-05 06:15] LABS: Microcytosis 1+; Ovalocytes Slight
[2021-03-05 06:16] LABS: Platelet Estimate Decreased
[2021-03-05] MEDS: PANTOPRAZOLE 40 MG TABLET PO SCH (09:21)
[2021-03-05] MEDS: MEGESTROL ES 125 MG/ML 30 ML/BOTTLE PO SCH (09:21)
[2021-03-05] MEDS: POLYETHYLENE GLYCOL POWDER 17 GM PACK PO SCH (09:21)
[2021-03-05] MEDS: SODIUM CHLORIDE 0.9% 500 ML IV SCH ×2 (11:52→17:52)
[2021-03-05] MEDS: DEXTROSE 5% IV SCH (12:45)
[2021-03-05] MEDS: AMPHOTERICIN B LIPOSOMAL IV SCH (12:45)
[2021-03-05 15:31] LABS: Appearance,CSF Clear; Lymphocytes,CSF 97 %; Monocytes,CSF 3 %; Red Blood Cell,CSF 2 C/CUMM; White Blood Cell,CSF 4 C/CUMM
[2021-03-05] MEDS: ENOXAPARIN 40 MG/0.4 ML SYRINGE SUBCUT SCH (17:52)
[2021-03-05] MEDS: cefTRIAXone 1,000 MG in SODIUM CHLORIDE 0.9% 100 ML IV SCH (17:53)
[2021-03-05] MEDS: SODIUM CHLORIDE 0.9% 1,000 ML IV SCH (17:54)
[2021-03-05] MEDS ORDERED: IPRATROPIUM 500 MCG/2.5 ML NEB RESP TX ONE (19:55)
[2021-03-05] MEDS ORDERED: ALBUTEROL 2.5 MG/3 ML NEB RESP TX ONE (19:55)
[2021-03-06] MEDS: ALBUTEROL/IPRATROPIUM 3 ML NEB RESP TX SCH ×4 (00:33→19:05)
[2021-03-06] MEDS: FLUCYTOSINE 500 MG CAPSULE PO SCH ×4 (05:07→23:14)
[2021-03-06 06:39] LABS: Basophils % 1.3 % (0.0-0.8); Hematocrit 27.5 VOL% (42.0-52.0); Hemoglobin 9.2 GM/DL (14.0-18.0); Immature Granulocytes % 0.7 %; Immature Granulocytes Absolute 0.02 #; Lymphocytes # 0.3 10*3/uL (1.4-4.0); Lymphocytes % 9.1 % (21.2-54.2); Mean Corpuscular HGB Conc 33.5 GM/DL (32-36); Mean Corpuscular Volume 95.5 FL (87-102); Mean Platelet Volume 10.6 FL (9.6-12.0); Monocytes % 13.1 % (1.7-12.7); Neutrophils % 75.8 % (38.7-73.9); Platelet Count 117 T/CUMM (130-400); Red Blood Count 2.88 MC/CUMM (3.8-5.5); Red Cell Distribution Width 15.7 % (9.3-17.3)
[2021-03-06 06:54] LABS: Calcium 7.8 MG/DL (8.5-10.1); Osmolality,Calculated 263.5 MOS/KG (273-304); Potassium 3.9 MMOL/L (3.5-5.1)
[2021-03-06] MEDS ORDERED: MAGNESIUM SULF RIDER 2 GM/50 ML PREMIX IV ONE (07:26)
[2021-03-06] MEDS: MEGESTROL ES 125 MG/ML 30 ML/BOTTLE PO SCH (08:57)
[2021-03-06] MEDS: PANTOPRAZOLE 40 MG TABLET PO SCH (08:57)
[2021-03-06] MEDS: POLYETHYLENE GLYCOL POWDER 17 GM PACK PO SCH (08:57)
[2021-03-06] MEDS: SODIUM CHLORIDE 0.9% 500 ML IV SCH ×2 (10:50→17:09)
[2021-03-06] MEDS ORDERED: POTASSIUM CHLORIDE 10 MEQ TABLET PO ONE (11:00)
[2021-03-06] MEDS: DEXTROSE 5% IV SCH (13:22)
[2021-03-06] MEDS: AMPHOTERICIN B LIPOSOMAL IV SCH (13:22)
[2021-03-06] MEDS: ENOXAPARIN 40 MG/0.4 ML SYRINGE SUBCUT SCH (17:09)
[2021-03-06] MEDS: cefTRIAXone 1,000 MG in SODIUM CHLORIDE 0.9% 100 ML IV SCH (18:12)
[2021-03-06] MEDS: SODIUM CHLORIDE 0.9% 1,000 ML IV SCH (23:15)
[2021-03-07] MEDS: ALBUTEROL/IPRATROPIUM 3 ML NEB RESP TX SCH ×4 (01:04→19:00)
[2021-03-07] MEDS: SODIUM CHLORIDE 0.9% 1,000 ML IV SCH ×3 (02:45→23:14)
[2021-03-07] MEDS: FLUCYTOSINE 500 MG CAPSULE PO SCH ×3 (05:19→17:44)
[2021-03-07 05:25] LABS: Basophils % 0.6 % (0.0-0.8); Hematocrit 25.7 VOL% (42.0-52.0); Hemoglobin 8.6 GM/DL (14.0-18.0); Immature Granulocytes % 1.2 %; Immature Granulocytes Absolute 0.04 #; Lymphocytes # 0.3 10*3/uL (1.4-4.0); Lymphocytes % 7.4 % (21.2-54.2); Mean Corpuscular HGB Conc 33.5 GM/DL (32-36); Mean Corpuscular Volume 96.3 FL (87-102); Mean Platelet Volume 10.6 FL (9.6-12.0); Monocytes % 12.1 % (1.7-12.7); Neutrophils % 78.7 % (38.7-73.9); Platelet Count 105 T/CUMM (130-400); Red Blood Count 2.67 MC/CUMM (3.8-5.5); Red Cell Distribution Width 15.5 % (9.3-17.3); White Blood Count 3.4 T/CUMM (4-12)
[2021-03-07 05:50] LABS: Calcium 7.9 MG/DL (8.5-10.1); Osmolality,Calculated 265.4 MOS/KG (273-304); Potassium 3.9 MMOL/L (3.5-5.1)
[2021-03-07] MEDS ORDERED: MAGNESIUM SULF RIDER 2 GM/50 ML PREMIX IV ONE (09:00)
[2021-03-07] MEDS: POLYETHYLENE GLYCOL POWDER 17 GM PACK PO SCH (09:48)
[2021-03-07] MEDS: PANTOPRAZOLE 40 MG TABLET PO SCH (09:50)
[2021-03-07] MEDS: MEGESTROL ES 125 MG/ML 30 ML/BOTTLE PO SCH (09:50)
[2021-03-07] MEDS: SULFAMETHOX/TRIMETHOPRIM 800-160 MG TABLET PO SCH (09:50)
[2021-03-07] MEDS: SODIUM CHLORIDE 0.9% 500 ML IV SCH ×2 (11:46→15:45)
[2021-03-07] MEDS: DEXTROSE 5% IV SCH (13:13)
[2021-03-07] MEDS: AMPHOTERICIN B LIPOSOMAL IV SCH (13:13)
[2021-03-07] MEDS: ENOXAPARIN 40 MG/0.4 ML SYRINGE SUBCUT SCH (17:43)
[2021-03-07] MEDS: cefTRIAXone 1,000 MG in SODIUM CHLORIDE 0.9% 100 ML IV SCH (17:43)
[2021-03-08] MEDS: FLUCYTOSINE 500 MG CAPSULE PO SCH ×5 (00:14→23:58)
[2021-03-08] MEDS: ALBUTEROL/IPRATROPIUM 3 ML NEB RESP TX SCH ×4 (01:54→19:47)
[2021-03-08 05:57] LABS: Eosinophils # 0.2 10*3/uL (0.0-0.87); Eosinophils % 4.7 % (0.00-10.9); Hematocrit 26.8 VOL% (42.0-52.0); Hemoglobin 8.9 GM/DL (14.0-18.0); Immature Granulocytes % 1.3 %; Immature Granulocytes Absolute 0.05 #; Lymphocytes # 0.3 10*3/uL (1.4-4.0); Lymphocytes % 7.3 % (21.2-54.2); Mean Corpuscular HGB Conc 33.2 GM/DL (32-36); Mean Corpuscular Volume 96.4 FL (87-102); Mean Platelet Volume 10.7 FL (9.6-12.0); Monocytes % 11.8 % (1.7-12.7); Neutrophils % 73.9 % (38.7-73.9); Platelet Count 103 T/CUMM (130-400); Red Blood Count 2.78 MC/CUMM (3.8-5.5); Red Cell Distribution Width 16.1 % (9.3-17.3); White Blood Count 3.8 T/CUMM (4-12)
[2021-03-08 06:14] LABS: Calcium 7.8 MG/DL (8.5-10.1); Osmolality,Calculated 264.4 MOS/KG (273-304); Potassium 4.1 MMOL/L (3.5-5.1)
[2021-03-08 06:17] LABS: Alanine Aminotransferase 28 U/L (16-61); Albumin 2.1 G/DL (3.4-5.0); Alkaline Phosphatase 90 U/L (45-117); Aspartate Amino Transferase 19 U/L (0-37); Bilirubin,Direct < 0.100 MG/DL (0.0-0.20); Bilirubin,Indirect 1.7 MG/DL (0.0-1.0); Total Protein 5.3 G/DL (6.4-8.2)
[2021-03-08 06:19] LABS: Hypochromia 1+
[2021-03-08 06:20] LABS: Anisocytosis Slight; Macrocytosis Slight; Microcytosis Slight
[2021-03-08] MEDS ORDERED: POTASSIUM CHLORIDE 20 MEQ TABLET PO ONE (09:00)
[2021-03-08] MEDS ORDERED: MAGNESIUM OXIDE 400 MG TABLET PO ONE (09:00)
[2021-03-08] MEDS: POLYETHYLENE GLYCOL POWDER 17 GM PACK PO SCH (09:14)
[2021-03-08] MEDS: PANTOPRAZOLE 40 MG TABLET PO SCH (09:14)
[2021-03-08] MEDS: MEGESTROL ES 125 MG/ML 30 ML/BOTTLE PO SCH (09:14)
[2021-03-08] MEDS: SODIUM CHLORIDE 0.9% 500 ML IV SCH ×2 (11:38→15:15)
[2021-03-08] MEDS: AMPHOTERICIN B LIPOSOMAL IV SCH (13:00)
[2021-03-08] MEDS: DEXTROSE 5% IV SCH (13:00)
[2021-03-08] MEDS: ENOXAPARIN 40 MG/0.4 ML SYRINGE SUBCUT SCH (17:13)
[2021-03-08] MEDS: cefTRIAXone 1,000 MG in SODIUM CHLORIDE 0.9% 100 ML IV SCH (17:19)
[2021-03-08] MEDS: SODIUM CHLORIDE 0.9% 1,000 ML IV SCH (19:49)
[2021-03-09] MEDS: ALBUTEROL/IPRATROPIUM 3 ML NEB RESP TX SCH ×4 (00:38→19:16)
[2021-03-09] MEDS: FLUCYTOSINE 500 MG CAPSULE PO SCH ×4 (05:15→23:41)
[2021-03-09 06:56] LABS: Basophils % 0.5 % (0.0-0.8); Hematocrit 25.4 VOL% (42.0-52.0); Hemoglobin 8.5 GM/DL (14.0-18.0); Immature Granulocytes % 0.8 %; Immature Granulocytes Absolute 0.03 #; Lymphocytes # 0.4 10*3/uL (1.4-4.0); Lymphocytes % 9.8 % (21.2-54.2); Mean Corpuscular HGB Conc 33.5 GM/DL (32-36); Mean Corpuscular Volume 96.6 FL (87-102); Mean Platelet Volume 10.5 FL (9.6-12.0); Monocytes % 13.2 % (1.7-12.7); Neutrophils % 75.7 % (38.7-73.9); Platelet Count 107 T/CUMM (130-400); Red Blood Count 2.63 MC/CUMM (3.8-5.5); Red Cell Distribution Width 16.9 % (9.3-17.3); White Blood Count 3.9 T/CUMM (4-12)
[2021-03-09 07:15] LABS: Osmolality,Calculated 258.8 MOS/KG (273-304); Potassium 3.9 MMOL/L (3.5-5.1)
[2021-03-09] MEDS ORDERED: POTASSIUM CHLORIDE 20 MEQ TABLET PO ONE (09:00)
[2021-03-09] MEDS ORDERED: MAGNESIUM SULF RIDER 4 GM/100 ML PREMIX IV ONE (09:00)
[2021-03-09] MEDS: MEGESTROL ES 125 MG/ML 30 ML/BOTTLE PO SCH (11:00)
[2021-03-09] MEDS: SULFAMETHOX/TRIMETHOPRIM 800-160 MG TABLET PO SCH (11:02)
[2021-03-09] MEDS: PANTOPRAZOLE 40 MG TABLET PO SCH (11:03)
[2021-03-09] MEDS: POLYETHYLENE GLYCOL POWDER 17 GM PACK PO SCH (11:03)
[2021-03-09] MEDS: SODIUM CHLORIDE 0.9% 500 ML IV SCH ×2 (13:31→19:12)
[2021-03-09] MEDS: DEXTROSE 5% IV SCH (16:26)
[2021-03-09] MEDS: AMPHOTERICIN B LIPOSOMAL IV SCH (16:26)
[2021-03-09] MEDS: ENOXAPARIN 40 MG/0.4 ML SYRINGE SUBCUT SCH (17:28)
[2021-03-09] MEDS: SODIUM CHLORIDE 0.9% 1,000 ML IV SCH ×2 (19:24)
[2021-03-10] MEDS: ALBUTEROL/IPRATROPIUM 3 ML NEB RESP TX SCH ×4 (00:05→19:50)
[2021-03-10] MEDS: FLUCYTOSINE 500 MG CAPSULE PO SCH (05:09)
[2021-03-10 06:17] LABS: Basophils % 0.5 % (0.0-0.8); Hematocrit 26.3 VOL% (42.0-52.0); Immature Granulocytes % 1.1 %; Immature Granulocytes Absolute 0.05 #; Lymphocytes # 0.4 10*3/uL (1.4-4.0); Lymphocytes % 8.5 % (21.2-54.2); Mean Corpuscular HGB Conc 34.2 GM/DL (32-36); Mean Corpuscular Volume 95.3 FL (87-102); Mean Platelet Volume 10.7 FL (9.6-12.0); Monocytes % 13.3 % (1.7-12.7); Neutrophils % 76.6 % (38.7-73.9); Red Blood Count 2.76 MC/CUMM (3.8-5.5); Red Cell Distribution Width 16.9 % (9.3-17.3); White Blood Count 4.4 T/CUMM (4-12)
[2021-03-10 06:20] LABS: Platelet Count 95 T/CUMM (130-400)
[2021-03-10 06:44] LABS: Calcium 8.2 MG/DL (8.5-10.1); Osmolality,Calculated 256.9 MOS/KG (273-304); Potassium 4.3 MMOL/L (3.5-5.1)
[2021-03-10 06:51] LABS: Hypochromia 1+; Microcytosis 1+; Ovalocytes Few; Platelet Estimate Decreased
[2021-03-10] MEDS ORDERED: MAGNESIUM SULF RIDER 4 GM/100 ML PREMIX IV ONE (07:56)
[2021-03-10] MEDS: PANTOPRAZOLE 40 MG TABLET PO SCH (09:22)
[2021-03-10] MEDS: MEGESTROL ES 125 MG/ML 30 ML/BOTTLE PO SCH (09:22)
[2021-03-10] MEDS: SODIUM BICARBONATE 650 MG TABLET PO SCH ×2 (09:22→20:45)
[2021-03-10] MEDS: POLYETHYLENE GLYCOL POWDER 17 GM PACK PO SCH (09:22)
[2021-03-10] MEDS: FLUCONAZOLE 200 MG TABLET PO SCH (12:52)
[2021-03-10] MEDS: ENOXAPARIN 40 MG/0.4 ML SYRINGE SUBCUT SCH (16:45)
[2021-03-10] MEDS: SODIUM CHLORIDE 0.9% 1,000 ML IV SCH (16:52)
[2021-03-11] MEDS: ALBUTEROL/IPRATROPIUM 3 ML NEB RESP TX SCH ×4 (00:50→21:51)
[2021-03-11 06:08] LABS: Basophils % 0.6 % (0.0-0.8); Hematocrit 25.5 VOL% (42.0-52.0); Hemoglobin 8.9 GM/DL (14.0-18.0); Immature Granulocytes % 0.8 %; Immature Granulocytes Absolute 0.03 #; Lymphocytes # 0.4 10*3/uL (1.4-4.0); Lymphocytes % 10.1 % (21.2-54.2); Mean Corpuscular HGB Conc 34.9 GM/DL (32-36); Mean Corpuscular Volume 96.2 FL (87-102); Mean Platelet Volume 10.3 FL (9.6-12.0); Monocytes % 11.8 % (1.7-12.7); Neutrophils % 76.7 % (38.7-73.9); Platelet Count 96 T/CUMM (130-400); Red Blood Count 2.65 MC/CUMM (3.8-5.5); Red Cell Distribution Width 17.4 % (9.3-17.3); White Blood Count 3.6 T/CUMM (4-12)
[2021-03-11 06:25] LABS: Calcium 8.7 MG/DL (8.5-10.1); Osmolality,Calculated 260.8 MOS/KG (273-304); Potassium 4.2 MMOL/L (3.5-5.1)
[2021-03-11 06:26] LABS: Bilirubin,Direct 0.11 MG/DL (0.0-0.20); Bilirubin,Total 1.5 MG/DL (0.20-1.00)
[2021-03-11 06:38] LABS: Hypochromia 1+; Microcytosis 1+; Ovalocytes Slight; Platelet Estimate Decreased
[2021-03-11] MEDS: SODIUM BICARBONATE 650 MG TABLET PO SCH ×2 (08:51→21:15)
[2021-03-11] MEDS: FLUCONAZOLE 200 MG TABLET PO SCH (08:51)
[2021-03-11] MEDS: PANTOPRAZOLE 40 MG TABLET PO SCH (08:52)
[2021-03-11] MEDS: ENOXAPARIN 40 MG/0.4 ML SYRINGE SUBCUT SCH (17:28)
[2021-03-12] MEDS: ALBUTEROL/IPRATROPIUM 3 ML NEB RESP TX SCH ×4 (00:50→19:55)
[2021-03-12 06:22] LABS: Basophils % 0.8 % (0.0-0.8); Eosinophils # 0.2 10*3/uL (0.0-0.87); Eosinophils % 4.1 % (0.00-10.9); Hematocrit 28.8 VOL% (42.0-52.0); Hemoglobin 9.7 GM/DL (14.0-18.0); Immature Granulocytes Absolute 0.04 #; Lymphocytes # 0.4 10*3/uL (1.4-4.0); Lymphocytes % 10.9 % (21.2-54.2); Mean Corpuscular HGB Conc 33.7 GM/DL (32-36); Mean Platelet Volume 10.4 FL (9.6-12.0); Monocytes % 12.2 % (1.7-12.7); Platelet Count 125 T/CUMM (130-400); Red Blood Count 2.97 MC/CUMM (3.8-5.5); Red Cell Distribution Width 17.5 % (9.3-17.3); White Blood Count 3.9 T/CUMM (4-12)
[2021-03-12 06:48] LABS: Calcium 8.7 MG/DL (8.5-10.1); Osmolality,Calculated 259.8 MOS/KG (273-304); Potassium 4.1 MMOL/L (3.5-5.1)
[2021-03-12] MEDS: SULFAMETHOX/TRIMETHOPRIM 800-160 MG TABLET PO SCH (09:20)
[2021-03-12] MEDS: SODIUM BICARBONATE 650 MG TABLET PO SCH ×2 (09:21→20:24)
[2021-03-12] MEDS: PANTOPRAZOLE 40 MG TABLET PO SCH (09:21)
[2021-03-12] MEDS: FLUCONAZOLE 200 MG TABLET PO SCH (09:21)
[2021-03-12] MEDS: ENOXAPARIN 40 MG/0.4 ML SYRINGE SUBCUT SCH (17:14)
[2021-03-12 17:15] LABS: Glucose,CSF 40 MG/DL (40-70)
[2021-03-12 17:37] LABS: Appearance,CSF Clear; Lymphocytes,CSF 100 %; Red Blood Cell,CSF 30 C/CUMM; White Blood Cell,CSF 16 C/CUMM
[2021-03-13] MEDS: ALBUTEROL/IPRATROPIUM 3 ML NEB RESP TX SCH ×4 (01:26→19:34)
[2021-03-13 05:21] LABS: Basophils # 0.1 10*3/uL (0.0-0.2); Basophils % 1.4 % (0.0-0.8); Eosinophils # 0.2 10*3/uL (0.0-0.87); Eosinophils % 4.9 % (0.00-10.9); Hematocrit 31.1 VOL% (42.0-52.0); Hemoglobin 10.4 GM/DL (14.0-18.0); Immature Granulocytes % 0.7 %; Immature Granulocytes Absolute 0.03 #; Lymphocytes # 0.4 10*3/uL (1.4-4.0); Lymphocytes % 8.7 % (21.2-54.2); Mean Corpuscular HGB Conc 33.4 GM/DL (32-36); Mean Platelet Volume 10.4 FL (9.6-12.0); Monocytes % 11.3 % (1.7-12.7); Platelet Count 130 T/CUMM (130-400); Red Blood Count 3.24 MC/CUMM (3.8-5.5); Red Cell Distribution Width 17.2 % (9.3-17.3); White Blood Count 4.3 T/CUMM (4-12)
[2021-03-13 05:36] LABS: Albumin 2.5 G/DL (3.4-5.0); Bilirubin,Total 0.9 MG/DL (0.20-1.00); Calcium 8.8 MG/DL (8.5-10.1); Osmolality,Calculated 258.1 MOS/KG (273-304); Potassium 4.2 MMOL/L (3.5-5.1); Total Protein 6.6 G/DL (6.4-8.2)
[2021-03-13] MEDS: SODIUM BICARBONATE 650 MG TABLET PO SCH ×2 (09:55→20:24)
[2021-03-13] MEDS: FLUCONAZOLE 200 MG TABLET PO SCH (09:55)
[2021-03-13] MEDS: PANTOPRAZOLE 40 MG TABLET PO SCH (09:55)
[2021-03-13] MEDS: ENOXAPARIN 40 MG/0.4 ML SYRINGE SUBCUT SCH (16:29)
[2021-03-14] MEDS: ALBUTEROL/IPRATROPIUM 3 ML NEB RESP TX SCH ×4 (01:05→20:20)
[2021-03-14 05:34] LABS: Basophils % 1.1 % (0.0-0.8); Eosinophils # 0.4 10*3/uL (0.0-0.87); Eosinophils % 11.7 % (0.00-10.9); Hematocrit 32.1 VOL% (42.0-52.0); Hemoglobin 10.6 GM/DL (14.0-18.0); Immature Granulocytes % 1.3 %; Immature Granulocytes Absolute 0.05 #; Lymphocytes # 0.5 10*3/uL (1.4-4.0); Lymphocytes % 13.6 % (21.2-54.2); Mean Corpuscular Volume 97.6 FL (87-102); Mean Platelet Volume 9.7 FL (9.6-12.0); Monocytes % 10.6 % (1.7-12.7); Neutrophils % 61.7 % (38.7-73.9); Platelet Count 115 T/CUMM (130-400); Red Blood Count 3.29 MC/CUMM (3.8-5.5); Red Cell Distribution Width 17.5 % (9.3-17.3); White Blood Count 3.8 T/CUMM (4-12)
[2021-03-14 05:58] LABS: Albumin 2.5 G/DL (3.4-5.0); Bilirubin,Total 0.9 MG/DL (0.20-1.00); Calcium 9.1 MG/DL (8.5-10.1); Osmolality,Calculated 261.9 MOS/KG (273-304); Potassium 4.4 MMOL/L (3.5-5.1); Total Protein 6.8 G/DL (6.4-8.2)
[2021-03-14 06:06] LABS: Band Neutrophils 1 % (0-10); Eosinophils 7 % (0-10); Hypochromia Slight; Lymphocytes 11 % (20-55); Segmented Neutrophils 71 % (50-85); Total Cells Counted 100
[2021-03-14 06:07] LABS: Anisocytosis 1+; Microcytosis 1+; Ovalocytes Few; Platelet Estimate Adequate
[2021-03-14] MEDS: PANTOPRAZOLE 40 MG TABLET PO SCH (08:43)
[2021-03-14] MEDS: FLUCONAZOLE 200 MG TABLET PO SCH (08:43)
[2021-03-14] MEDS: SULFAMETHOX/TRIMETHOPRIM 800-160 MG TABLET PO SCH (08:43)
[2021-03-14] MEDS: SODIUM BICARBONATE 650 MG TABLET PO SCH ×2 (08:43→21:33)
[2021-03-14] MEDS: ENOXAPARIN 40 MG/0.4 ML SYRINGE SUBCUT SCH (16:50)
[2021-03-15] MEDS: ALBUTEROL/IPRATROPIUM 3 ML NEB RESP TX SCH ×3 (00:34→15:01)
[2021-03-15 06:04] LABS: Basophils # 0.1 10*3/uL (0.0-0.2); Basophils % 1.4 % (0.0-0.8); Eosinophils # 0.5 10*3/uL (0.0-0.87); Eosinophils % 14.2 % (0.00-10.9); Hematocrit 35.5 VOL% (42.0-52.0); Hemoglobin 11.6 GM/DL (14.0-18.0); Immature Granulocytes % 0.9 %; Immature Granulocytes Absolute 0.03 #; Lymphocytes # 0.5 10*3/uL (1.4-4.0); Lymphocytes % 13.6 % (21.2-54.2); Mean Corpuscular HGB Conc 32.7 GM/DL (32-36); Mean Corpuscular Volume 98.1 FL (87-102); Mean Platelet Volume 10.7 FL (9.6-12.0); Monocytes % 8.7 % (1.7-12.7); Neutrophils % 61.2 % (38.7-73.9); Platelet Count 127 T/CUMM (130-400); Red Blood Count 3.62 MC/CUMM (3.8-5.5); Red Cell Distribution Width 17.5 % (9.3-17.3); White Blood Count 3.5 T/CUMM (4-12)
[2021-03-15 06:21] LABS: Albumin 2.5 G/DL (3.4-5.0); Bilirubin,Total 0.9 MG/DL (0.20-1.00); Calcium 8.7 MG/DL (8.5-10.1); Osmolality,Calculated 268.5 MOS/KG (273-304); Potassium 4.5 MMOL/L (3.5-5.1); Total Protein 6.8 G/DL (6.4-8.2)
[2021-03-15 06:38] LABS: Eosinophils 11 % (0-10); Hypochromia Slight; Lymphocytes 10 % (20-55); Microcytosis Slight; Platelet Estimate Normal; Segmented Neutrophils 70 % (50-85); Total Cells Counted 100
[2021-03-15] MEDS: SODIUM BICARBONATE 650 MG TABLET PO SCH ×2 (08:12→20:10)
[2021-03-15] MEDS: PANTOPRAZOLE 40 MG TABLET PO SCH (08:12)
[2021-03-15] MEDS: FLUCONAZOLE 200 MG TABLET PO SCH (08:12)
[2021-03-15] MEDS: ENOXAPARIN 40 MG/0.4 ML SYRINGE SUBCUT SCH (17:47)
[2021-03-16] MEDS: ALBUTEROL/IPRATROPIUM 3 ML NEB RESP TX SCH ×5 (02:28→19:55)
[2021-03-16 05:17] LABS: Basophils % 0.8 % (0.0-0.8); Eosinophils # 0.6 10*3/uL (0.0-0.87); Eosinophils % 16.4 % (0.00-10.9); Hematocrit 32.9 VOL% (42.0-52.0); Hemoglobin 10.9 GM/DL (14.0-18.0); Immature Granulocytes % 0.8 %; Immature Granulocytes Absolute 0.03 #; Lymphocytes # 0.4 10*3/uL (1.4-4.0); Lymphocytes % 11.6 % (21.2-54.2); Mean Corpuscular HGB Conc 33.1 GM/DL (32-36); Mean Corpuscular Volume 96.8 FL (87-102); Monocytes % 8.2 % (1.7-12.7); Neutrophils % 62.2 % (38.7-73.9); Platelet Count 117 T/CUMM (130-400); Red Cell Distribution Width 17.2 % (9.3-17.3); White Blood Count 3.5 T/CUMM (4-12)
[2021-03-16 05:42] LABS: Albumin 2.4 G/DL (3.4-5.0); Bilirubin,Total 1.4 MG/DL (0.20-1.00); Calcium 8.9 MG/DL (8.5-10.1); Osmolality,Calculated 263.9 MOS/KG (273-304); Potassium 4.3 MMOL/L (3.5-5.1); Total Protein 6.6 G/DL (6.4-8.2)
[2021-03-16 05:47] LABS: Eosinophils 10 % (0-10); Hypochromia Slight; Lymphocytes 14 % (20-55); Microcytosis Slight; Platelet Estimate Decreased; Segmented Neutrophils 68 % (50-85); Total Cells Counted 100
[2021-03-16] MEDS: FLUCONAZOLE 200 MG TABLET PO SCH (08:42)
[2021-03-16] MEDS: PANTOPRAZOLE 40 MG TABLET PO SCH (08:43)
[2021-03-16] MEDS: SODIUM BICARBONATE 650 MG TABLET PO SCH ×2 (08:43→20:20)
[2021-03-16] MEDS: SULFAMETHOX/TRIMETHOPRIM 800-160 MG TABLET PO SCH (08:43)
[2021-03-16] MEDS: LACTATED RINGERS 1,000 ML IV SCH ×2 (12:21→20:20)
[2021-03-16] MEDS: ENOXAPARIN 40 MG/0.4 ML SYRINGE SUBCUT SCH (17:29)
[2021-03-17] MEDS: ALBUTEROL/IPRATROPIUM 3 ML NEB RESP TX SCH ×2 (00:59→07:20)
[2021-03-17] MEDS: LACTATED RINGERS 1,000 ML IV SCH ×2 (05:50→17:15)
[2021-03-17 06:01] LABS: Basophils % 1.1 % (0.0-0.8); Eosinophils # 0.4 10*3/uL (0.0-0.87); Eosinophils % 14.3 % (0.00-10.9); Hemoglobin 9.2 GM/DL (14.0-18.0); Immature Granulocytes % 1.1 %; Immature Granulocytes Absolute 0.03 #; Lymphocytes # 0.3 10*3/uL (1.4-4.0); Lymphocytes % 12.8 % (21.2-54.2); Mean Corpuscular HGB Conc 32.9 GM/DL (32-36); Mean Corpuscular Volume 99.3 FL (87-102); Mean Platelet Volume 11.2 FL (9.6-12.0); Monocytes % 10.2 % (1.7-12.7); Neutrophils % 60.5 % (38.7-73.9); Platelet Count 102 T/CUMM (130-400); Red Blood Count 2.82 MC/CUMM (3.8-5.5); Red Cell Distribution Width 17.2 % (9.3-17.3); White Blood Count 2.7 T/CUMM (4-12)
[2021-03-17 06:17] LABS: Albumin 2.1 G/DL (3.4-5.0); Bilirubin,Total 1.1 MG/DL (0.20-1.00); Calcium 8.3 MG/DL (8.5-10.1); Osmolality,Calculated 265.5 MOS/KG (273-304); Potassium 4.5 MMOL/L (3.5-5.1); Total Protein 5.9 G/DL (6.4-8.2)
[2021-03-17 07:12] LABS: Band Neutrophils 1 % (0-10); Eosinophils 12 % (0-10); Hypochromia 2+; Lymphocytes 13 % (20-55); Platelet Estimate Adequate; Segmented Neutrophils 65 % (50-85); Total Cells Counted 100
[2021-03-17] MEDS ORDERED: MAGNESIUM SULF RIDER 2 GM/50 ML PREMIX IV PRN (08:34)
[2021-03-17] MEDS ORDERED: MAGNESIUM SULF RIDER 4 GM/100 ML PREMIX IV PRN (08:34)
[2021-03-17] MEDS ORDERED: ALBUTEROL/IPRATROPIUM 3 ML NEB RESP TX PRN (09:12)
[2021-03-17] MEDS: FLUCONAZOLE 200 MG TABLET PO SCH (09:33)
[2021-03-17] MEDS: MAGNESIUM SULF RIDER 2 GM/50 ML PREMIX IV PRN (09:33)
[2021-03-17] MEDS: PANTOPRAZOLE 40 MG TABLET PO SCH (09:33)
[2021-03-17] MEDS: SODIUM BICARBONATE 650 MG TABLET PO SCH ×2 (09:33→20:42)
[2021-03-17] MEDS: CYPROHEPTADINE 4 MG TABLET PO SCH ×2 (15:46→20:42)
[2021-03-17] MEDS: ENOXAPARIN 40 MG/0.4 ML SYRINGE SUBCUT SCH (17:17)
[2021-03-18 13:19] LABS: Basophils % 0.9 % (0.0-0.8); Eosinophils # 0.4 10*3/uL (0.0-0.87); Eosinophils % 17.9 % (0.00-10.9); Hematocrit 25.8 VOL% (42.0-52.0); Hemoglobin 8.7 GM/DL (14.0-18.0); Immature Granulocytes % 0.5 %; Immature Granulocytes Absolute 0.01 #; Lymphocytes # 0.3 10*3/uL (1.4-4.0); Lymphocytes % 14.6 % (21.2-54.2); Mean Corpuscular HGB Conc 33.7 GM/DL (32-36); Mean Corpuscular Volume 95.2 FL (87-102); Mean Platelet Volume 11.5 FL (9.6-12.0); Neutrophils % 58.1 % (38.7-73.9); Platelet Count 101 T/CUMM (130-400); Red Blood Count 2.71 MC/CUMM (3.8-5.5); Red Cell Distribution Width 16.9 % (9.3-17.3); White Blood Count 2.1 T/CUMM (4-12)
[2021-03-18 13:32] LABS: Bilirubin,Total 0.96 MG/DL (0.20-1.00); Calcium 8.4 MG/DL (8.5-10.1); Total Protein 5.6 G/DL (6.4-8.2)
[2021-03-18 13:33] LABS: Osmolality,Calculated 262.7 MOS/KG (273-304); Potassium 4.3 MMOL/L (3.5-5.1)
[2021-03-18 14:02] LABS: Band Neutrophils 1 % (0-10); Eosinophils 16 % (0-10); Lymphocytes 15 % (20-55); Segmented Neutrophils 59 % (50-85)
[2021-03-18 14:03] LABS: Anisocytosis 1+; Platelet Estimate Adequate; Tear Drop Cells Few; Total Cells Counted 100
[2021-03-18] MEDS: LACTATED RINGERS 1,000 ML IV SCH (15:31)
[2021-03-18] MEDS: FLUCONAZOLE 200 MG TABLET PO SCH (15:31)
[2021-03-18] MEDS: PANTOPRAZOLE 40 MG TABLET PO SCH (15:32)
[2021-03-18] MEDS: SODIUM BICARBONATE 650 MG TABLET PO SCH ×2 (15:32→21:27)
[2021-03-18] MEDS: CYPROHEPTADINE 4 MG TABLET PO SCH ×2 (15:32→21:27)
[2021-03-18] MEDS ORDERED: MAGNESIUM SULF RIDER 4 GM/100 ML PREMIX IV PRN (16:56)
[2021-03-18] MEDS: ENOXAPARIN 40 MG/0.4 ML SYRINGE SUBCUT SCH ×2 (18:31→21:27)
[2021-03-19] MEDS: LACTATED RINGERS 1,000 ML IV SCH ×3 (05:35→19:17)
[2021-03-19] MEDS: SODIUM BICARBONATE 650 MG TABLET PO SCH ×2 (08:52→20:38)
[2021-03-19] MEDS: CYPROHEPTADINE 4 MG TABLET PO SCH ×3 (08:52→20:39)
[2021-03-19] MEDS: PANTOPRAZOLE 40 MG TABLET PO SCH (08:53)
[2021-03-19] MEDS: SULFAMETHOX/TRIMETHOPRIM 800-160 MG TABLET PO SCH (08:53)
[2021-03-19] MEDS: FLUCONAZOLE 200 MG TABLET PO SCH (09:05)
[2021-03-19] MEDS: ENOXAPARIN 40 MG/0.4 ML SYRINGE SUBCUT SCH (20:38)
[2021-03-20] MEDS: LACTATED RINGERS 1,000 ML IV SCH ×2 (04:35→22:16)
[2021-03-20] MEDS: CYPROHEPTADINE 4 MG TABLET PO SCH ×3 (09:44→20:10)
[2021-03-20] MEDS: PANTOPRAZOLE 40 MG TABLET PO SCH (09:44)
[2021-03-20] MEDS: SODIUM BICARBONATE 650 MG TABLET PO SCH ×2 (09:44→20:10)
[2021-03-20] MEDS: FLUCONAZOLE 200 MG TABLET PO SCH (09:45)
[2021-03-20] MEDS: MAGNESIUM SULF RIDER 2 GM/50 ML PREMIX IV PRN (13:33)
[2021-03-20] MEDS: ENOXAPARIN 40 MG/0.4 ML SYRINGE SUBCUT SCH (20:10)
[2021-03-21] MEDS: FLUCONAZOLE 200 MG TABLET PO SCH (09:33)
[2021-03-21] MEDS: SULFAMETHOX/TRIMETHOPRIM 800-160 MG TABLET PO SCH (09:33)
[2021-03-21] MEDS: CYPROHEPTADINE 4 MG TABLET PO SCH ×3 (09:33→21:14)
[2021-03-21] MEDS: SODIUM BICARBONATE 650 MG TABLET PO SCH ×2 (09:33→21:14)
[2021-03-21] MEDS: PANTOPRAZOLE 40 MG TABLET PO SCH (09:34)
[2021-03-21] MEDS: ENOXAPARIN 40 MG/0.4 ML SYRINGE SUBCUT SCH (21:15)
[2021-03-21] MEDS: LACTATED RINGERS 1,000 ML IV SCH (21:15)
[2021-03-22] MEDS: LACTATED RINGERS 1,000 ML IV SCH ×5 (02:34→20:59)
[2021-03-22] MEDS: FLUCONAZOLE 200 MG TABLET PO SCH (09:01)
[2021-03-22] MEDS: CYPROHEPTADINE 4 MG TABLET PO SCH ×3 (09:01→20:58)
[2021-03-22] MEDS: SODIUM BICARBONATE 650 MG TABLET PO SCH ×2 (09:01→20:58)
[2021-03-22] MEDS: PANTOPRAZOLE 40 MG TABLET PO SCH (09:01)
[2021-03-22] MEDS: ENOXAPARIN 40 MG/0.4 ML SYRINGE SUBCUT SCH (20:58)
[2021-03-22] MEDS: FLUTICASONE 50 MCG NASAL SPRAY 16 GM BOTTLE BOTH NARES SCH (20:59)
[2021-03-23 04:19] LABS: Basophils % 1.1 % (0.0-0.8); Eosinophils # 0.3 10*3/uL (0.0-0.87); Eosinophils % 16.1 % (0.00-10.9); Hematocrit 27.5 VOL% (42.0-52.0); Immature Granulocytes % 1.1 %; Immature Granulocytes Absolute 0.02 #; Lymphocytes # 0.3 10*3/uL (1.4-4.0); Lymphocytes % 18.4 % (21.2-54.2); Mean Corpuscular HGB Conc 32.7 GM/DL (32-36); Mean Corpuscular Volume 96.2 FL (87-102); Mean Platelet Volume 10.8 FL (9.6-12.0); Monocytes % 9.8 % (1.7-12.7); Neutrophils % 53.5 % (38.7-73.9); Platelet Count 90 T/CUMM (130-400); Red Blood Count 2.86 MC/CUMM (3.8-5.5); Red Cell Distribution Width 17.1 % (9.3-17.3); White Blood Count 1.7 T/CUMM (4-12)
[2021-03-23 04:46] LABS: Calcium 7.7 MG/DL (8.5-10.1); Osmolality,Calculated 264.4 MOS/KG (273-304); Potassium 3.9 MMOL/L (3.5-5.1)
[2021-03-23 05:14] LABS: Band Neutrophils 1 % (0-10); Eosinophils 8 % (0-10); Hypochromia Slight; Lymphocytes 13 % (20-55); Platelet Estimate Decreased; Segmented Neutrophils 72 % (50-85); Total Cells Counted 100
[2021-03-23] MEDS: LACTATED RINGERS 1,000 ML IV SCH ×2 (06:09→17:35)
[2021-03-23] MEDS: PANTOPRAZOLE 40 MG TABLET PO SCH (09:18)
[2021-03-23] MEDS: CYPROHEPTADINE 4 MG TABLET PO SCH ×3 (09:18→21:34)
[2021-03-23] MEDS: FLUCONAZOLE 200 MG TABLET PO SCH (09:18)
[2021-03-23] MEDS: SODIUM BICARBONATE 650 MG TABLET PO SCH ×2 (09:18→21:34)
[2021-03-23] MEDS: FLUTICASONE 50 MCG NASAL SPRAY 16 GM BOTTLE BOTH NARES SCH ×2 (09:19→21:34)
[2021-03-23] MEDS: ENOXAPARIN 40 MG/0.4 ML SYRINGE SUBCUT SCH (21:34)
[2021-03-24] MEDS: LACTATED RINGERS 1,000 ML IV SCH ×5 (03:14→23:34)
[2021-03-24] MEDS: PANTOPRAZOLE 40 MG TABLET PO SCH (09:04)
[2021-03-24] MEDS: FLUTICASONE 50 MCG NASAL SPRAY 16 GM BOTTLE BOTH NARES SCH ×2 (09:04→21:53)
[2021-03-24] MEDS: CYPROHEPTADINE 4 MG TABLET PO SCH ×3 (09:04→21:53)
[2021-03-24] MEDS: SODIUM BICARBONATE 650 MG TABLET PO SCH ×2 (09:04→21:53)
[2021-03-24] MEDS: ENOXAPARIN 40 MG/0.4 ML SYRINGE SUBCUT SCH (21:53)
[2021-03-25] MEDS: LACTATED RINGERS 1,000 ML IV SCH (03:31)
[2021-03-25] MEDS: CYPROHEPTADINE 4 MG TABLET PO SCH ×3 (09:57→21:00)
[2021-03-25] MEDS: SODIUM BICARBONATE 650 MG TABLET PO SCH ×2 (09:57→21:00)
[2021-03-25] MEDS: PANTOPRAZOLE 40 MG TABLET PO SCH (09:57)
[2021-03-25] MEDS: MYLANTA/LIDO VISC/NYST 180 ML BOTTLE SWISH/SPIT SCH ×4 (09:57→21:01)
[2021-03-25] MEDS: FLUTICASONE 50 MCG NASAL SPRAY 16 GM BOTTLE BOTH NARES SCH ×2 (09:57→21:01)
[2021-03-25] MEDS: CITALOPRAM 20 MG TABLET PO SCH (13:19)
[2021-03-25] MEDS: ACETAMINOPHEN 325 MG TABLET PO PRN (16:15)
[2021-03-25] MEDS: ENOXAPARIN 40 MG/0.4 ML SYRINGE SUBCUT SCH (21:01)
[2021-03-26 03:23] LABS: Basophils % 1.1 % (0.0-0.8); Eosinophils # 0.2 10*3/uL (0.0-0.87); Eosinophils % 10.9 % (0.00-10.9); Hematocrit 29.9 VOL% (42.0-52.0); Hemoglobin 9.8 GM/DL (14.0-18.0); Immature Granulocytes % 0.6 %; Immature Granulocytes Absolute 0.01 #; Lymphocytes # 0.3 10*3/uL (1.4-4.0); Lymphocytes % 16.1 % (21.2-54.2); Mean Corpuscular HGB Conc 32.8 GM/DL (32-36); Mean Corpuscular Volume 97.7 FL (87-102); Mean Platelet Volume 11.6 FL (9.6-12.0); Monocytes % 16.1 % (1.7-12.7); Neutrophils % 55.2 % (38.7-73.9); Red Blood Count 3.06 MC/CUMM (3.8-5.5); Red Cell Distribution Width 17.2 % (9.3-17.3); White Blood Count 1.7 T/CUMM (4-12)
[2021-03-26 03:40] LABS: Calcium 7.8 MG/DL (8.5-10.1); Osmolality,Calculated 270.8 MOS/KG (273-304); Platelet Count 82 T/CUMM (130-400); Potassium 3.9 MMOL/L (3.5-5.1)
[2021-03-26 03:47] LABS: Eosinophils 6 % (0-10); Hypochromia 1+; Lymphocytes 9 % (20-55); Microcytosis 1+; Platelet Estimate Decreased; Segmented Neutrophils 69 % (50-85); Total Cells Counted 100
[2021-03-26] MEDS: LACTATED RINGERS 1,000 ML IV SCH ×4 (07:16→19:19)
[2021-03-26] MEDS ORDERED: MAGNESIUM SULF RIDER 2 GM/50 ML PREMIX IV PRN (08:25)
[2021-03-26] MEDS ORDERED: MAGNESIUM SULF RIDER 4 GM/100 ML PREMIX IV PRN (08:25)
[2021-03-26] MEDS: CITALOPRAM 20 MG TABLET PO SCH (11:05)
[2021-03-26] MEDS: MAGNESIUM SULF RIDER 2 GM/50 ML PREMIX IV PRN (11:06)
[2021-03-26] MEDS: SODIUM BICARBONATE 650 MG TABLET PO SCH ×2 (11:06→20:26)
[2021-03-26] MEDS: PANTOPRAZOLE 40 MG TABLET PO SCH (11:06)
[2021-03-26] MEDS: CYPROHEPTADINE 4 MG TABLET PO SCH ×3 (11:06→20:26)
[2021-03-26] MEDS: cefTRIAXone 1,000 MG in SODIUM CHLORIDE 0.9% 100 ML IV SCH (12:33)
[2021-03-26] MEDS: MYLANTA/LIDO VISC/NYST 180 ML BOTTLE SWISH/SPIT SCH ×3 (12:34→21:42)
[2021-03-26] MEDS: FLUTICASONE 50 MCG NASAL SPRAY 16 GM BOTTLE BOTH NARES SCH ×2 (12:34→20:26)
[2021-03-26] MEDS: ENOXAPARIN 40 MG/0.4 ML SYRINGE SUBCUT SCH (20:26)
[2021-03-27] MEDS: LACTATED RINGERS 1,000 ML IV SCH ×2 (05:05→15:24)
[2021-03-27 05:48] LABS: Eosinophils # 0.3 10*3/uL (0.0-0.87); Eosinophils % 12.6 % (0.00-10.9); Hematocrit 29.6 VOL% (42.0-52.0); Hemoglobin 9.6 GM/DL (14.0-18.0); Immature Granulocytes % 0.5 %; Immature Granulocytes Absolute 0.01 #; Lymphocytes # 0.3 10*3/uL (1.4-4.0); Lymphocytes % 16.2 % (21.2-54.2); Mean Corpuscular HGB Conc 32.4 GM/DL (32-36); Mean Corpuscular Volume 98.7 FL (87-102); Mean Platelet Volume 11.9 FL (9.6-12.0); Monocytes % 11.1 % (1.7-12.7); Neutrophils % 58.6 % (38.7-73.9); Platelet Count 77 T/CUMM (130-400); Red Cell Distribution Width 17.4 % (9.3-17.3)
[2021-03-27 06:12] LABS: Calcium 7.9 MG/DL (8.5-10.1); Osmolality,Calculated 265.2 MOS/KG (273-304); Potassium 3.8 MMOL/L (3.5-5.1)
[2021-03-27 06:19] LABS: Eosinophils 13 % (0-10); Lymphocytes 10 % (20-55); Platelet Estimate Decreased; Segmented Neutrophils 65 % (50-85); Total Cells Counted 100
[2021-03-27 06:20] LABS: Hypochromia 1+; Microcytosis 1+
[2021-03-27] MEDS: MYLANTA/LIDO VISC/NYST 180 ML BOTTLE SWISH/SPIT SCH ×3 (09:01→19:11)
[2021-03-27] MEDS: FLUTICASONE 50 MCG NASAL SPRAY 16 GM BOTTLE BOTH NARES SCH ×2 (10:06→20:59)
[2021-03-27] MEDS: PANTOPRAZOLE 40 MG TABLET PO SCH (10:06)
[2021-03-27] MEDS: CITALOPRAM 20 MG TABLET PO SCH (10:06)
[2021-03-27] MEDS: SODIUM BICARBONATE 650 MG TABLET PO SCH ×2 (10:06→20:59)
[2021-03-27] MEDS: CYPROHEPTADINE 4 MG TABLET PO SCH ×3 (10:06→20:58)
[2021-03-27] MEDS: cefTRIAXone 1,000 MG in SODIUM CHLORIDE 0.9% 100 ML IV SCH (11:18)
[2021-03-27] MEDS: ENOXAPARIN 40 MG/0.4 ML SYRINGE SUBCUT SCH (20:59)
[2021-03-27] MEDS: ACETAMINOPHEN 325 MG TABLET PO PRN (21:03)
[2021-03-28] MEDS: LACTATED RINGERS 1,000 ML IV SCH ×2 (01:07→15:58)
[2021-03-28 06:02] LABS: Basophils % 1.3 % (0.0-0.8); Eosinophils # 0.3 10*3/uL (0.0-0.87); Eosinophils % 19.9 % (0.00-10.9); Hematocrit 31.1 VOL% (42.0-52.0); Hemoglobin 10.1 GM/DL (14.0-18.0); Immature Granulocytes % 0.7 %; Immature Granulocytes Absolute 0.01 #; Lymphocytes # 0.2 10*3/uL (1.4-4.0); Lymphocytes % 15.2 % (21.2-54.2); Mean Corpuscular HGB Conc 32.5 GM/DL (32-36); Mean Corpuscular Volume 98.7 FL (87-102); Mean Platelet Volume 11.2 FL (9.6-12.0); Monocytes % 9.3 % (1.7-12.7); Neutrophils % 53.6 % (38.7-73.9); Red Blood Count 3.15 MC/CUMM (3.8-5.5); Red Cell Distribution Width 17.2 % (9.3-17.3); White Blood Count 1.5 T/CUMM (4-12)
[2021-03-28 06:17] LABS: Calcium 7.7 MG/DL (8.5-10.1); Osmolality,Calculated 272.7 MOS/KG (273-304); Platelet Count 73 T/CUMM (130-400); Potassium 3.9 MMOL/L (3.5-5.1)
[2021-03-28 06:44] LABS: Eosinophils 13 % (0-10); Hypochromia 1+; Lymphocytes 20 % (20-55); Microcytosis 1+; Ovalocytes Slight; Segmented Neutrophils 50 % (50-85); Total Cells Counted 100
[2021-03-28 06:45] LABS: Platelet Estimate Decreased
[2021-03-28] MEDS ORDERED: MAGNESIUM SULF RIDER 4 GM/100 ML PREMIX IV ONE (08:30)
[2021-03-28] MEDS ORDERED: DOCUSATE SODIUM 100 MG/10 ML BOTH EARS PRN (08:44)
[2021-03-28] MEDS: CITALOPRAM 20 MG TABLET PO SCH (09:56)
[2021-03-28] MEDS: SODIUM BICARBONATE 650 MG TABLET PO SCH ×2 (09:56→21:11)
[2021-03-28] MEDS: PANTOPRAZOLE 40 MG TABLET PO SCH (09:56)
[2021-03-28] MEDS: FLUTICASONE 50 MCG NASAL SPRAY 16 GM BOTTLE BOTH NARES SCH ×2 (09:56→21:11)
[2021-03-28] MEDS: CYPROHEPTADINE 4 MG TABLET PO SCH ×3 (09:56→21:10)
[2021-03-28] MEDS: cefTRIAXone 1,000 MG in SODIUM CHLORIDE 0.9% 100 ML IV SCH (12:21)
[2021-03-28] MEDS: ENOXAPARIN 40 MG/0.4 ML SYRINGE SUBCUT SCH (21:11)
[2021-03-29] MEDS: LACTATED RINGERS 1,000 ML IV SCH ×4 (02:18→17:06)
[2021-03-29 05:33] LABS: Basophils % 1.1 % (0.0-0.8); Eosinophils # 0.3 10*3/uL (0.0-0.87); Eosinophils % 15.1 % (0.00-10.9); Hematocrit 30.5 VOL% (42.0-52.0); Hemoglobin 10.1 GM/DL (14.0-18.0); Immature Granulocytes % 0.6 %; Immature Granulocytes Absolute 0.01 #; Lymphocytes # 0.3 10*3/uL (1.4-4.0); Lymphocytes % 17.9 % (21.2-54.2); Mean Corpuscular HGB Conc 33.1 GM/DL (32-36); Mean Corpuscular Volume 97.8 FL (87-102); Mean Platelet Volume 12.3 FL (9.6-12.0); Monocytes % 12.8 % (1.7-12.7); Neutrophils % 52.5 % (38.7-73.9); Platelet Count 73 T/CUMM (130-400); Red Blood Count 3.12 MC/CUMM (3.8-5.5); Red Cell Distribution Width 17.2 % (9.3-17.3); White Blood Count 1.8 T/CUMM (4-12)
[2021-03-29 05:45] LABS: Calcium 7.6 MG/DL (8.5-10.1); Osmolality,Calculated 264.2 MOS/KG (273-304); Potassium 3.8 MMOL/L (3.5-5.1)
[2021-03-29 06:14] LABS: Band Neutrophils 2 % (0-10); Eosinophils 11 % (0-10); Hypochromia 1+; Lymphocytes 9 % (20-55); Microcytosis 1+; Nucleated Red Blood Cells 1 (0-5); Platelet Estimate Decreased; Segmented Neutrophils 61 % (50-85); Total Cells Counted 100
[2021-03-29] MEDS: FLUTICASONE 50 MCG NASAL SPRAY 16 GM BOTTLE BOTH NARES SCH ×2 (09:32→22:58)
[2021-03-29] MEDS: PANTOPRAZOLE 40 MG TABLET PO SCH (09:34)
[2021-03-29] MEDS: CITALOPRAM 20 MG TABLET PO SCH (09:34)
[2021-03-29] MEDS: SODIUM BICARBONATE 650 MG TABLET PO SCH ×2 (09:34→20:51)
[2021-03-29] MEDS: CYPROHEPTADINE 4 MG TABLET PO SCH ×3 (09:34→20:51)
[2021-03-29] MEDS: cefTRIAXone 1,000 MG in SODIUM CHLORIDE 0.9% 100 ML IV SCH (11:24)
[2021-03-29] MEDS: ENOXAPARIN 40 MG/0.4 ML SYRINGE SUBCUT SCH (23:02)
[2021-03-30] MEDS: LACTATED RINGERS 1,000 ML IV SCH ×3 (00:10→23:06)
[2021-03-30] MEDS: FLUTICASONE 50 MCG NASAL SPRAY 16 GM BOTTLE BOTH NARES SCH ×2 (09:24→20:59)
[2021-03-30] MEDS: SODIUM BICARBONATE 650 MG TABLET PO SCH ×2 (09:24→20:59)
[2021-03-30] MEDS: CYPROHEPTADINE 4 MG TABLET PO SCH ×3 (09:24→20:59)
[2021-03-30] MEDS: PANTOPRAZOLE 40 MG TABLET PO SCH (09:24)
[2021-03-30] MEDS: CITALOPRAM 20 MG TABLET PO SCH (09:24)
[2021-03-30 10:09] LABS: Basophils % 1.1 % (0.0-0.8); Eosinophils # 0.3 10*3/uL (0.0-0.87); Eosinophils % 15.4 % (0.00-10.9); Hematocrit 30.8 VOL% (42.0-52.0); Hemoglobin 10.1 GM/DL (14.0-18.0); Immature Granulocytes % 1.1 %; Immature Granulocytes Absolute 0.02 #; Lymphocytes # 0.4 10*3/uL (1.4-4.0); Lymphocytes % 20.9 % (21.2-54.2); Mean Corpuscular HGB Conc 32.8 GM/DL (32-36); Mean Corpuscular Volume 97.5 FL (87-102); Mean Platelet Volume 11.8 FL (9.6-12.0); Monocytes % 11.5 % (1.7-12.7); Platelet Count 76 T/CUMM (130-400); Red Blood Count 3.16 MC/CUMM (3.8-5.5); Red Cell Distribution Width 17.3 % (9.3-17.3); White Blood Count 1.8 T/CUMM (4-12)
[2021-03-30 10:29] LABS: Calcium 8.1 MG/DL (8.5-10.1); Osmolality,Calculated 266.2 MOS/KG (273-304); Potassium 3.7 MMOL/L (3.5-5.1)
[2021-03-30 11:00] LABS: Eosinophils 16 % (0-10); Lymphocytes 17 % (20-55); Segmented Neutrophils 53 % (50-85); Total Cells Counted 100
[2021-03-30 11:01] LABS: Atypical Lymphocytes Few; Hypochromia Slight; Microcytosis 1+; Platelet Estimate Decreased
[2021-03-30] MEDS: cefTRIAXone 1,000 MG in SODIUM CHLORIDE 0.9% 100 ML IV SCH (11:21)
[2021-03-30] MEDS: ENOXAPARIN 40 MG/0.4 ML SYRINGE SUBCUT SCH (20:59)
[2021-03-30] MEDS: valACYclovir 500 MG TABLET PO SCH (20:59)
[2021-03-30] MEDS: HYDROCORTISONE 2.5% CREAM 30 GM TUBE TOP SCH (21:00)
[2021-03-31 06:21] LABS: Basophils % 1.5 % (0.0-0.8); Eosinophils # 0.3 10*3/uL (0.0-0.87); Eosinophils % 13.6 % (0.00-10.9); Hematocrit 29.1 VOL% (42.0-52.0); Hemoglobin 9.5 GM/DL (14.0-18.0); Immature Granulocytes % 0.5 %; Immature Granulocytes Absolute 0.01 #; Lymphocytes # 0.4 10*3/uL (1.4-4.0); Lymphocytes % 19.7 % (21.2-54.2); Mean Corpuscular HGB Conc 32.6 GM/DL (32-36); Mean Corpuscular Volume 97.7 FL (87-102); Mean Platelet Volume 11.5 FL (9.6-12.0); Monocytes % 11.6 % (1.7-12.7); Neutrophils % 53.1 % (38.7-73.9); Platelet Count 81 T/CUMM (130-400); Red Blood Count 2.98 MC/CUMM (3.8-5.5); Red Cell Distribution Width 17.4 % (9.3-17.3)
[2021-03-31 06:40] LABS: Calcium 7.9 MG/DL (8.5-10.1); Eosinophils 14 % (0-10); Lymphocytes 22 % (20-55); Metamyelocytes 1 %; Potassium 3.8 MMOL/L (3.5-5.1); Segmented Neutrophils 56 % (50-85); Total Cells Counted 100
[2021-03-31 06:41] LABS: Platelet Estimate Decreased
[2021-03-31] MEDS ORDERED: MAGNESIUM SULF RIDER 4 GM/100 ML PREMIX IV ONE (08:25)
[2021-03-31] MEDS: MAGNESIUM SULF RIDER 2 GM/50 ML PREMIX IV PRN (09:37)
[2021-03-31] MEDS: KETOCONAZOLE 2% CREAM 30 GM TUBE TOP SCH (09:41)
[2021-03-31] MEDS: CITALOPRAM 20 MG TABLET PO SCH (09:41)
[2021-03-31] MEDS: valACYclovir 500 MG TABLET PO SCH ×2 (09:41→20:42)
[2021-03-31] MEDS: WHITE PETROLATUM 30 GM TUBE TOP PRN (09:41)
[2021-03-31] MEDS: MEGESTROL ES 125 MG/ML 30 ML/BOTTLE PO SCH (09:42)
[2021-03-31] MEDS: CYPROHEPTADINE 4 MG TABLET PO SCH ×3 (09:42→20:42)
[2021-03-31] MEDS: PANTOPRAZOLE 40 MG TABLET PO SCH (09:42)
[2021-03-31] MEDS: FLUTICASONE 50 MCG NASAL SPRAY 16 GM BOTTLE BOTH NARES SCH ×2 (09:43→20:42)
[2021-03-31] MEDS: HYDROCORTISONE 2.5% CREAM 30 GM TUBE TOP SCH ×2 (09:43→20:42)
[2021-03-31] MEDS: SODIUM BICARBONATE 650 MG TABLET PO SCH ×2 (09:48→20:42)
[2021-03-31] MEDS: LACTATED RINGERS 1,000 ML IV SCH (14:01)
[2021-03-31] MEDS: cefTRIAXone 1,000 MG in SODIUM CHLORIDE 0.9% 100 ML IV SCH (14:03)
[2021-03-31] MEDS: ENOXAPARIN 40 MG/0.4 ML SYRINGE SUBCUT SCH (20:42)
[2021-04-01] MEDS: LACTATED RINGERS 1,000 ML IV SCH ×4 (03:02→22:38)
[2021-04-01 05:26] LABS: Basophils % 1.3 % (0.0-0.8); Eosinophils # 0.2 10*3/uL (0.0-0.87); Hematocrit 29.6 VOL% (42.0-52.0); Hemoglobin 9.8 GM/DL (14.0-18.0); Immature Granulocytes % 0.4 %; Immature Granulocytes Absolute 0.01 #; Lymphocytes # 0.3 10*3/uL (1.4-4.0); Lymphocytes % 14.3 % (21.2-54.2); Mean Corpuscular HGB Conc 33.1 GM/DL (32-36); Mean Platelet Volume 11.7 FL (9.6-12.0); Monocytes % 10.1 % (1.7-12.7); Neutrophils % 65.9 % (38.7-73.9); Platelet Count 83 T/CUMM (130-400); Red Blood Count 3.02 MC/CUMM (3.8-5.5); Red Cell Distribution Width 17.2 % (9.3-17.3); White Blood Count 2.4 T/CUMM (4-12)
[2021-04-01 05:39] LABS: Calcium 7.6 MG/DL (8.5-10.1); Osmolality,Calculated 272.7 MOS/KG (273-304); Potassium 3.5 MMOL/L (3.5-5.1)
[2021-04-01 06:12] LABS: Anisocytosis 2+; Platelet Estimate Decreased
[2021-04-01 06:13] LABS: Macrocytosis 1+
[2021-04-01] MEDS: SODIUM BICARBONATE 650 MG TABLET PO SCH ×2 (08:55→20:21)
[2021-04-01] MEDS: valACYclovir 500 MG TABLET PO SCH ×2 (08:55→20:21)
[2021-04-01] MEDS: CYPROHEPTADINE 4 MG TABLET PO SCH ×3 (08:56→20:21)
[2021-04-01] MEDS: CITALOPRAM 20 MG TABLET PO SCH (08:56)
[2021-04-01] MEDS: PANTOPRAZOLE 40 MG TABLET PO SCH (08:56)
[2021-04-01] MEDS: MEGESTROL ES 125 MG/ML 30 ML/BOTTLE PO SCH (08:57)
[2021-04-01] MEDS: FLUTICASONE 50 MCG NASAL SPRAY 16 GM BOTTLE BOTH NARES SCH ×2 (09:02→20:21)
[2021-04-01] MEDS: HYDROCORTISONE 2.5% CREAM 30 GM TUBE TOP SCH ×2 (09:03→20:21)
[2021-04-01] MEDS: KETOCONAZOLE 2% CREAM 30 GM TUBE TOP SCH (09:04)
[2021-04-01] MEDS: cefTRIAXone 1,000 MG in SODIUM CHLORIDE 0.9% 100 ML IV SCH (12:38)
[2021-04-01] MEDS: ENOXAPARIN 40 MG/0.4 ML SYRINGE SUBCUT SCH (20:21)
[2021-04-02] MEDS: LACTATED RINGERS 1,000 ML IV SCH ×3 (03:17→22:13)
[2021-04-02 06:23] LABS: Basophils % 1.1 % (0.0-0.8); Eosinophils # 0.1 10*3/uL (0.0-0.87); Eosinophils % 7.8 % (0.00-10.9); Hematocrit 28.9 VOL% (42.0-52.0); Hemoglobin 9.5 GM/DL (14.0-18.0); Immature Granulocytes % 1.1 %; Immature Granulocytes Absolute 0.02 #; Lymphocytes # 0.5 10*3/uL (1.4-4.0); Lymphocytes % 26.8 % (21.2-54.2); Mean Corpuscular HGB Conc 32.9 GM/DL (32-36); Mean Corpuscular Volume 98.6 FL (87-102); Mean Platelet Volume 11.2 FL (9.6-12.0); Monocytes % 17.3 % (1.7-12.7); Neutrophils % 45.9 % (38.7-73.9); Platelet Count 85 T/CUMM (130-400); Red Blood Count 2.93 MC/CUMM (3.8-5.5); Red Cell Distribution Width 17.2 % (9.3-17.3); White Blood Count 1.8 T/CUMM (4-12)
[2021-04-02 06:43] LABS: Eosinophils 4 % (0-10); Hypochromia 1+; Lymphocytes 20 % (20-55); Microcytosis 1+; Platelet Estimate Decreased; Segmented Neutrophils 56 % (50-85); Total Cells Counted 100
[2021-04-02 06:44] LABS: Calcium 7.7 MG/DL (8.5-10.1); Osmolality,Calculated 271.7 MOS/KG (273-304); Potassium 3.7 MMOL/L (3.5-5.1)
[2021-04-02] MEDS: CYPROHEPTADINE 4 MG TABLET PO SCH ×3 (09:25→21:13)
[2021-04-02] MEDS: valACYclovir 500 MG TABLET PO SCH ×2 (09:25→21:13)
[2021-04-02] MEDS: SODIUM BICARBONATE 650 MG TABLET PO SCH ×2 (09:26→21:13)
[2021-04-02] MEDS: CITALOPRAM 20 MG TABLET PO SCH (09:26)
[2021-04-02] MEDS: PANTOPRAZOLE 40 MG TABLET PO SCH (09:26)
[2021-04-02] MEDS: FLUTICASONE 50 MCG NASAL SPRAY 16 GM BOTTLE BOTH NARES SCH ×2 (09:26→21:13)
[2021-04-02] MEDS: HYDROCORTISONE 2.5% CREAM 30 GM TUBE TOP SCH ×2 (09:27→21:13)
[2021-04-02] MEDS: MEGESTROL ES 125 MG/ML 30 ML/BOTTLE PO SCH (09:27)
[2021-04-02] MEDS: KETOCONAZOLE 2% CREAM 30 GM TUBE TOP SCH (09:27)
[2021-04-02] MEDS: cefTRIAXone 1,000 MG in SODIUM CHLORIDE 0.9% 100 ML IV SCH (11:53)
[2021-04-02] MEDS: ENOXAPARIN 40 MG/0.4 ML SYRINGE SUBCUT SCH (21:13)
[2021-04-03 06:43] LABS: Basophils % 0.5 % (0.0-0.8); Eosinophils # 0.1 10*3/uL (0.0-0.87); Eosinophils % 5.2 % (0.00-10.9); Hematocrit 29.9 VOL% (42.0-52.0); Hemoglobin 9.8 GM/DL (14.0-18.0); Immature Granulocytes Absolute 0.02 #; Lymphocytes # 0.5 10*3/uL (1.4-4.0); Mean Corpuscular HGB Conc 32.8 GM/DL (32-36); Mean Corpuscular Volume 98.7 FL (87-102); Mean Platelet Volume 11.3 FL (9.6-12.0); Monocytes % 13.5 % (1.7-12.7); Neutrophils % 53.8 % (38.7-73.9); Platelet Count 88 T/CUMM (130-400); Red Blood Count 3.03 MC/CUMM (3.8-5.5); Red Cell Distribution Width 17.3 % (9.3-17.3); White Blood Count 1.9 T/CUMM (4-12)
[2021-04-03 07:04] LABS: Calcium 7.9 MG/DL (8.5-10.1); Osmolality,Calculated 276.4 MOS/KG (273-304); Potassium 3.8 MMOL/L (3.5-5.1)
[2021-04-03 07:20] LABS: Atypical Lymphocytes Few; Band Neutrophils 1 % (0-10); Eosinophils 4 % (0-10); Hypochromia 1+; Lymphocytes 22 % (20-55); Microcytosis 1+; Segmented Neutrophils 53 % (50-85); Total Cells Counted 100
[2021-04-03 07:21] LABS: Ovalocytes Slight; Platelet Estimate Decreased
[2021-04-03] MEDS: CYPROHEPTADINE 4 MG TABLET PO SCH ×3 (10:20→20:59)
[2021-04-03] MEDS: CITALOPRAM 20 MG TABLET PO SCH (10:20)
[2021-04-03] MEDS: SODIUM BICARBONATE 650 MG TABLET PO SCH ×2 (10:20→20:59)
[2021-04-03] MEDS: FLUTICASONE 50 MCG NASAL SPRAY 16 GM BOTTLE BOTH NARES SCH ×2 (10:20→21:02)
[2021-04-03] MEDS: PANTOPRAZOLE 40 MG TABLET PO SCH (10:20)
[2021-04-03] MEDS: valACYclovir 500 MG TABLET PO SCH ×2 (10:20→20:59)
[2021-04-03] MEDS: KETOCONAZOLE 2% CREAM 30 GM TUBE TOP SCH (10:21)
[2021-04-03] MEDS: MEGESTROL ES 125 MG/ML 30 ML/BOTTLE PO SCH (10:21)
[2021-04-03] MEDS: HYDROCORTISONE 2.5% CREAM 30 GM TUBE TOP SCH ×2 (10:21→21:02)
[2021-04-03] MEDS: LACTATED RINGERS 1,000 ML IV SCH (10:46)
[2021-04-03] MEDS: ENOXAPARIN 40 MG/0.4 ML SYRINGE SUBCUT SCH (20:59)
[2021-04-04] MEDS: CITALOPRAM 20 MG TABLET PO SCH (11:00)
[2021-04-04] MEDS: HYDROCORTISONE 2.5% CREAM 30 GM TUBE TOP SCH ×2 (11:00→20:43)
[2021-04-04] MEDS: MEGESTROL ES 125 MG/ML 30 ML/BOTTLE PO SCH (11:00)
[2021-04-04] MEDS: FLUTICASONE 50 MCG NASAL SPRAY 16 GM BOTTLE BOTH NARES SCH ×2 (11:00→20:43)
[2021-04-04] MEDS: SODIUM BICARBONATE 650 MG TABLET PO SCH ×2 (11:01→20:42)
[2021-04-04] MEDS: valACYclovir 500 MG TABLET PO SCH ×2 (11:01→20:42)
[2021-04-04] MEDS: KETOCONAZOLE 2% CREAM 30 GM TUBE TOP SCH (11:01)
[2021-04-04] MEDS: PANTOPRAZOLE 40 MG TABLET PO SCH (11:01)
[2021-04-04] MEDS: CYPROHEPTADINE 4 MG TABLET PO SCH ×3 (11:01→20:42)
[2021-04-04] MEDS: SULFAMETHOX/TRIMETHOPRIM 800-160 MG TABLET PO SCH (12:10)
[2021-04-04] MEDS: FLUCONAZOLE 200 MG TABLET PO SCH (12:10)
[2021-04-04] MEDS: ENOXAPARIN 40 MG/0.4 ML SYRINGE SUBCUT SCH (20:42)
[2021-04-05] MEDS: SODIUM BICARBONATE 650 MG TABLET PO SCH ×2 (08:13→20:15)
[2021-04-05] MEDS: valACYclovir 500 MG TABLET PO SCH ×2 (08:13→20:15)
[2021-04-05] MEDS: PANTOPRAZOLE 40 MG TABLET PO SCH (08:13)
[2021-04-05] MEDS: FLUCONAZOLE 200 MG TABLET PO SCH (08:13)
[2021-04-05] MEDS: CYPROHEPTADINE 4 MG TABLET PO SCH ×3 (08:14→20:15)
[2021-04-05] MEDS: CITALOPRAM 20 MG TABLET PO SCH (08:14)
[2021-04-05] MEDS: HYDROCORTISONE 2.5% CREAM 30 GM TUBE TOP SCH ×2 (08:17→20:15)
[2021-04-05] MEDS: FLUTICASONE 50 MCG NASAL SPRAY 16 GM BOTTLE BOTH NARES SCH ×2 (08:17→20:16)
[2021-04-05] MEDS: MEGESTROL ES 125 MG/ML 30 ML/BOTTLE PO SCH (08:18)
[2021-04-05] MEDS: KETOCONAZOLE 2% CREAM 30 GM TUBE TOP SCH (08:18)
[2021-04-05] MEDS: ENOXAPARIN 40 MG/0.4 ML SYRINGE SUBCUT SCH (20:15)
[2021-04-06] MEDS: SULFAMETHOX/TRIMETHOPRIM 800-160 MG TABLET PO SCH (08:25)
[2021-04-06] MEDS: CITALOPRAM 20 MG TABLET PO SCH (08:25)
[2021-04-06] MEDS: FLUCONAZOLE 200 MG TABLET PO SCH (08:26)
[2021-04-06] MEDS: FLUTICASONE 50 MCG NASAL SPRAY 16 GM BOTTLE BOTH NARES SCH ×2 (08:26→20:53)
[2021-04-06] MEDS: MEGESTROL ES 125 MG/ML 30 ML/BOTTLE PO SCH (08:27)
[2021-04-06] MEDS: KETOCONAZOLE 2% CREAM 30 GM TUBE TOP SCH (08:27)
[2021-04-06] MEDS: HYDROCORTISONE 2.5% CREAM 30 GM TUBE TOP SCH ×2 (08:27→20:53)
[2021-04-06] MEDS: CYPROHEPTADINE 4 MG TABLET PO SCH ×2 (19:27→20:53)
[2021-04-06] MEDS: PANTOPRAZOLE 40 MG TABLET PO SCH (19:28)
[2021-04-06] MEDS: valACYclovir 500 MG TABLET PO SCH ×2 (19:28→20:52)
[2021-04-06] MEDS: SODIUM BICARBONATE 650 MG TABLET PO SCH ×2 (19:28→20:53)
[2021-04-06] MEDS: ENOXAPARIN 40 MG/0.4 ML SYRINGE SUBCUT SCH (20:53)
[2021-04-07 06:32] LABS: Eosinophils # 0.1 10*3/uL (0.0-0.87); Eosinophils % 3.1 % (0.00-10.9); Hematocrit 32.6 VOL% (42.0-52.0); Hemoglobin 10.6 GM/DL (14.0-18.0); Immature Granulocytes % 1.2 %; Immature Granulocytes Absolute 0.05 #; Lymphocytes # 0.6 10*3/uL (1.4-4.0); Lymphocytes % 13.6 % (21.2-54.2); Mean Corpuscular HGB Conc 32.5 GM/DL (32-36); Mean Corpuscular Volume 99.7 FL (87-102); Mean Platelet Volume 12.1 FL (9.6-12.0); Monocytes % 10.9 % (1.7-12.7); Neutrophils % 70.2 % (38.7-73.9); Platelet Count 153 T/CUMM (130-400); Red Blood Count 3.27 MC/CUMM (3.8-5.5); Red Cell Distribution Width 18.8 % (9.3-17.3); White Blood Count 4.1 T/CUMM (4-12)
[2021-04-07 07:11] LABS: Calcium 8.5 MG/DL (8.5-10.1); Osmolality,Calculated 274.8 MOS/KG (273-304); Potassium 4.4 MMOL/L (3.5-5.1)
[2021-04-07] MEDS: valACYclovir 500 MG TABLET PO SCH ×2 (09:44→21:17)
[2021-04-07] MEDS: PANTOPRAZOLE 40 MG TABLET PO SCH (09:44)
[2021-04-07] MEDS: CYPROHEPTADINE 4 MG TABLET PO SCH ×3 (09:44→21:16)
[2021-04-07] MEDS: CITALOPRAM 20 MG TABLET PO SCH (09:45)
[2021-04-07] MEDS: FLUCONAZOLE 200 MG TABLET PO SCH (09:45)
[2021-04-07] MEDS: SODIUM BICARBONATE 650 MG TABLET PO SCH ×2 (09:45→21:16)
[2021-04-07] MEDS: FLUTICASONE 50 MCG NASAL SPRAY 16 GM BOTTLE BOTH NARES SCH ×2 (09:45→21:21)
[2021-04-07] MEDS: HYDROCORTISONE 2.5% CREAM 30 GM TUBE TOP SCH ×2 (09:46→21:21)
[2021-04-07] MEDS: MEGESTROL ES 125 MG/ML 30 ML/BOTTLE PO SCH (09:46)
[2021-04-07] MEDS: KETOCONAZOLE 2% CREAM 30 GM TUBE TOP SCH (09:46)
[2021-04-07] MEDS: WHITE PETROLATUM 30 GM TUBE TOP PRN (09:46)
[2021-04-07] MEDS: ACETAMINOPHEN 325 MG TABLET PO PRN (21:17)
[2021-04-07] MEDS: ENOXAPARIN 40 MG/0.4 ML SYRINGE SUBCUT SCH (21:21)
[2021-04-08] MEDS: CYPROHEPTADINE 4 MG TABLET PO SCH ×3 (10:49→21:08)
[2021-04-08] MEDS: MEGESTROL ES 125 MG/ML 30 ML/BOTTLE PO SCH (10:50)
[2021-04-08] MEDS: CITALOPRAM 20 MG TABLET PO SCH (10:50)
[2021-04-08] MEDS: FLUCONAZOLE 200 MG TABLET PO SCH (10:50)
[2021-04-08] MEDS: SODIUM BICARBONATE 650 MG TABLET PO SCH ×2 (10:50→21:08)
[2021-04-08] MEDS: PANTOPRAZOLE 40 MG TABLET PO SCH (10:50)
[2021-04-08] MEDS: FLUTICASONE 50 MCG NASAL SPRAY 16 GM BOTTLE BOTH NARES SCH ×2 (10:51→21:09)
[2021-04-08] MEDS: KETOCONAZOLE 2% CREAM 30 GM TUBE TOP SCH (10:51)
[2021-04-08] MEDS: WHITE PETROLATUM 30 GM TUBE TOP PRN (10:51)
[2021-04-08] MEDS: HYDROCORTISONE 2.5% CREAM 30 GM TUBE TOP SCH ×2 (10:51→21:09)
[2021-04-08] MEDS: valACYclovir 500 MG TABLET PO SCH ×2 (10:54→21:08)
[2021-04-08] MEDS: ENOXAPARIN 40 MG/0.4 ML SYRINGE SUBCUT SCH (21:08)
[2021-04-09] MEDS: SULFAMETHOX/TRIMETHOPRIM 800-160 MG TABLET PO SCH (11:26)
[2021-04-09] MEDS: PANTOPRAZOLE 40 MG TABLET PO SCH (11:26)
[2021-04-09] MEDS: SODIUM BICARBONATE 650 MG TABLET PO SCH ×2 (11:26→21:44)
[2021-04-09] MEDS: CYPROHEPTADINE 4 MG TABLET PO SCH ×3 (11:26→21:44)
[2021-04-09] MEDS: HYDROCORTISONE 2.5% CREAM 30 GM TUBE TOP SCH ×2 (11:26→23:40)
[2021-04-09] MEDS: CITALOPRAM 20 MG TABLET PO SCH (11:26)
[2021-04-09] MEDS: valACYclovir 500 MG TABLET PO SCH ×2 (11:26→21:45)
[2021-04-09] MEDS: FLUCONAZOLE 200 MG TABLET PO SCH (11:26)
[2021-04-09] MEDS: FLUTICASONE 50 MCG NASAL SPRAY 16 GM BOTTLE BOTH NARES SCH ×2 (11:26→23:40)
[2021-04-09] MEDS: KETOCONAZOLE 2% CREAM 30 GM TUBE TOP SCH (11:26)
[2021-04-09] MEDS: MEGESTROL ES 125 MG/ML 30 ML/BOTTLE PO SCH (11:26)
[2021-04-09] MEDS: ENOXAPARIN 40 MG/0.4 ML SYRINGE SUBCUT SCH (21:45)
[2021-04-10 05:46] LABS: Basophils % 0.7 % (0.0-0.8); Eosinophils # 0.2 10*3/uL (0.0-0.87); Eosinophils % 5.1 % (0.00-10.9); Hemoglobin 11.5 GM/DL (14.0-18.0); Immature Granulocytes % 1.2 %; Immature Granulocytes Absolute 0.05 #; Lymphocytes # 0.6 10*3/uL (1.4-4.0); Lymphocytes % 13.6 % (21.2-54.2); Mean Corpuscular HGB Conc 32.9 GM/DL (32-36); Mean Corpuscular Volume 100.3 FL (87-102); Mean Platelet Volume 11.2 FL (9.6-12.0); Monocytes % 14.3 % (1.7-12.7); Neutrophils % 65.1 % (38.7-73.9); Platelet Count 183 T/CUMM (130-400); Red Blood Count 3.49 MC/CUMM (3.8-5.5); Red Cell Distribution Width 19.6 % (9.3-17.3); White Blood Count 4.1 T/CUMM (4-12)
[2021-04-10 06:00] LABS: Calcium 9.2 MG/DL (8.5-10.1); Osmolality,Calculated 267.5 MOS/KG (273-304); Potassium 4.4 MMOL/L (3.5-5.1)
[2021-04-10] MEDS: FLUTICASONE 50 MCG NASAL SPRAY 16 GM BOTTLE BOTH NARES SCH ×2 (11:59→21:31)
[2021-04-10] MEDS: CITALOPRAM 20 MG TABLET PO SCH (11:59)
[2021-04-10] MEDS: FLUCONAZOLE 200 MG TABLET PO SCH (11:59)
[2021-04-10] MEDS: MEGESTROL ES 125 MG/ML 30 ML/BOTTLE PO SCH (12:00)
[2021-04-10] MEDS: KETOCONAZOLE 2% CREAM 30 GM TUBE TOP SCH (12:00)
[2021-04-10] MEDS: HYDROCORTISONE 2.5% CREAM 30 GM TUBE TOP SCH ×2 (12:00→22:41)
[2021-04-10] MEDS: CYPROHEPTADINE 4 MG TABLET PO SCH ×3 (12:00→21:30)
[2021-04-10] MEDS: valACYclovir 500 MG TABLET PO SCH ×2 (12:01→21:30)
[2021-04-10] MEDS: SODIUM BICARBONATE 650 MG TABLET PO SCH ×2 (12:01→21:29)
[2021-04-10] MEDS: PANTOPRAZOLE 40 MG TABLET PO SCH (12:01)
[2021-04-10] MEDS: ENOXAPARIN 40 MG/0.4 ML SYRINGE SUBCUT SCH (21:30)
[2021-04-11 06:51] LABS: Basophils % 0.7 % (0.0-0.8); Eosinophils # 0.2 10*3/uL (0.0-0.87); Eosinophils % 4.8 % (0.00-10.9); Hematocrit 36.2 VOL% (42.0-52.0); Immature Granulocytes % 1.4 %; Immature Granulocytes Absolute 0.06 #; Lymphocytes # 0.5 10*3/uL (1.4-4.0); Lymphocytes % 11.4 % (21.2-54.2); Mean Corpuscular HGB Conc 33.1 GM/DL (32-36); Mean Corpuscular Volume 101.1 FL (87-102); Mean Platelet Volume 11.5 FL (9.6-12.0); Monocytes % 11.2 % (1.7-12.7); Neutrophils % 70.5 % (38.7-73.9); Platelet Count 191 T/CUMM (130-400); Red Blood Count 3.58 MC/CUMM (3.8-5.5); Red Cell Distribution Width 19.8 % (9.3-17.3); White Blood Count 4.4 T/CUMM (4-12)
[2021-04-11 07:13] LABS: Anisocytosis 1+; Band Neutrophils 2 % (0-10); Eosinophils 5 % (0-10); Lymphocytes 10 % (20-55); Macrocytosis 1+; Platelet Estimate Normal; Segmented Neutrophils 68 % (50-85); Total Cells Counted 100
[2021-04-11 07:17] LABS: Calcium 8.9 MG/DL (8.5-10.1); Osmolality,Calculated 278.8 MOS/KG (273-304); Potassium 4.3 MMOL/L (3.5-5.1)
[2021-04-11] MEDS: CITALOPRAM 20 MG TABLET PO SCH (09:06)
[2021-04-11] MEDS: FLUTICASONE 50 MCG NASAL SPRAY 16 GM BOTTLE BOTH NARES SCH ×2 (09:06→21:01)
[2021-04-11] MEDS: SODIUM BICARBONATE 650 MG TABLET PO SCH ×2 (09:06→21:00)
[2021-04-11] MEDS: SULFAMETHOX/TRIMETHOPRIM 800-160 MG TABLET PO SCH (09:06)
[2021-04-11] MEDS: valACYclovir 500 MG TABLET PO SCH ×2 (09:06→21:01)
[2021-04-11] MEDS: CYPROHEPTADINE 4 MG TABLET PO SCH ×3 (09:06→21:00)
[2021-04-11] MEDS: PANTOPRAZOLE 40 MG TABLET PO SCH (09:06)
[2021-04-11] MEDS: FLUCONAZOLE 200 MG TABLET PO SCH (09:06)
[2021-04-11] MEDS: HYDROCORTISONE 2.5% CREAM 30 GM TUBE TOP SCH ×2 (09:07→21:02)
[2021-04-11] MEDS: KETOCONAZOLE 2% CREAM 30 GM TUBE TOP SCH (09:07)
[2021-04-11] MEDS: MEGESTROL ES 125 MG/ML 30 ML/BOTTLE PO SCH (09:07)
[2021-04-11] MEDS: ENOXAPARIN 40 MG/0.4 ML SYRINGE SUBCUT SCH (21:02)
[2021-04-12 07:42] LABS: Basophils % 0.6 % (0.0-0.8); Eosinophils % 0.2 % (0.00-10.9); Hematocrit 34.6 VOL% (42.0-52.0); Hemoglobin 11.5 GM/DL (14.0-18.0); Immature Granulocytes % 0.9 %; Immature Granulocytes Absolute 0.04 #; Lymphocytes # 0.5 10*3/uL (1.4-4.0); Mean Corpuscular HGB Conc 33.2 GM/DL (32-36); Mean Corpuscular Volume 100.6 FL (87-102); Mean Platelet Volume 10.9 FL (9.6-12.0); Monocytes % 13.9 % (1.7-12.7); Neutrophils % 74.4 % (38.7-73.9); Platelet Count 183 T/CUMM (130-400); Red Blood Count 3.44 MC/CUMM (3.8-5.5); White Blood Count 4.6 T/CUMM (4-12)
[2021-04-12 07:58] LABS: Osmolality,Calculated 271.4 MOS/KG (273-304); Potassium 4.5 MMOL/L (3.5-5.1)
[2021-04-12 08:12] LABS: Hypochromia 1+; Lymphocytes 8 % (20-55); Microcytosis 1+; Platelet Estimate Adequate; Segmented Neutrophils 81 % (50-85); Total Cells Counted 100
[2021-04-12] MEDS: MEGESTROL ES 125 MG/ML 30 ML/BOTTLE PO SCH (09:19)
[2021-04-12] MEDS: CYPROHEPTADINE 4 MG TABLET PO SCH ×3 (09:19→21:28)
[2021-04-12] MEDS: SODIUM BICARBONATE 650 MG TABLET PO SCH ×2 (09:19→21:28)
[2021-04-12] MEDS: CITALOPRAM 20 MG TABLET PO SCH (09:19)
[2021-04-12] MEDS: PANTOPRAZOLE 40 MG TABLET PO SCH (09:19)
[2021-04-12] MEDS: valACYclovir 500 MG TABLET PO SCH ×2 (09:19→21:28)
[2021-04-12] MEDS: FLUTICASONE 50 MCG NASAL SPRAY 16 GM BOTTLE BOTH NARES SCH ×2 (09:20→21:28)
[2021-04-12] MEDS: HYDROCORTISONE 2.5% CREAM 30 GM TUBE TOP SCH ×2 (09:20→21:28)
[2021-04-12] MEDS: KETOCONAZOLE 2% CREAM 30 GM TUBE TOP SCH (11:30)
[2021-04-12] MEDS: ENOXAPARIN 40 MG/0.4 ML SYRINGE SUBCUT SCH (21:27)
[2021-04-13 05:12] LABS: Basophils % 0.4 % (0.0-0.8); Eosinophils # 0.1 10*3/uL (0.0-0.87); Hemoglobin 11.2 GM/DL (14.0-18.0); Immature Granulocytes % 1.1 %; Immature Granulocytes Absolute 0.06 #; Lymphocytes # 0.7 10*3/uL (1.4-4.0); Lymphocytes % 11.5 % (21.2-54.2); Mean Corpuscular HGB Conc 32.9 GM/DL (32-36); Mean Corpuscular Volume 101.5 FL (87-102); Mean Platelet Volume 11.3 FL (9.6-12.0); Monocytes % 14.7 % (1.7-12.7); Neutrophils % 70.3 % (38.7-73.9); Platelet Count 189 T/CUMM (130-400); Red Blood Count 3.35 MC/CUMM (3.8-5.5); White Blood Count 5.6 T/CUMM (4-12)
[2021-04-13 05:25] LABS: Calcium 8.8 MG/DL (8.5-10.1); Osmolality,Calculated 267.5 MOS/KG (273-304); Potassium 4.1 MMOL/L (3.5-5.1)
[2021-04-13] MEDS: CYPROHEPTADINE 4 MG TABLET PO SCH ×3 (09:36→20:16)
[2021-04-13] MEDS: FLUTICASONE 50 MCG NASAL SPRAY 16 GM BOTTLE BOTH NARES SCH ×2 (14:36→20:17)
[2021-04-13] MEDS: KETOCONAZOLE 2% CREAM 30 GM TUBE TOP SCH (14:36)
[2021-04-13] MEDS: PANTOPRAZOLE 40 MG TABLET PO SCH (14:36)
[2021-04-13] MEDS: CITALOPRAM 20 MG TABLET PO SCH (14:36)
[2021-04-13] MEDS: HYDROCORTISONE 2.5% CREAM 30 GM TUBE TOP SCH ×2 (14:36→20:17)
[2021-04-13] MEDS: SODIUM BICARBONATE 650 MG TABLET PO SCH ×2 (14:36→20:16)
[2021-04-13] MEDS: MEGESTROL ES 125 MG/ML 30 ML/BOTTLE PO SCH (14:36)
[2021-04-13] MEDS: valACYclovir 500 MG TABLET PO SCH ×2 (14:37→20:16)
[2021-04-13] MEDS: ENOXAPARIN 40 MG/0.4 ML SYRINGE SUBCUT SCH (20:17)
[2021-04-14 06:23] LABS: Basophils % 0.5 % (0.0-0.8); Eosinophils # 0.2 10*3/uL (0.0-0.87); Eosinophils % 3.4 % (0.00-10.9); Hemoglobin 11.4 GM/DL (14.0-18.0); Immature Granulocytes % 1.1 %; Immature Granulocytes Absolute 0.07 #; Lymphocytes # 0.5 10*3/uL (1.4-4.0); Lymphocytes % 8.7 % (21.2-54.2); Mean Corpuscular HGB Conc 32.6 GM/DL (32-36); Mean Corpuscular Volume 102.3 FL (87-102); Mean Platelet Volume 10.9 FL (9.6-12.0); Monocytes % 12.2 % (1.7-12.7); Neutrophils % 74.1 % (38.7-73.9); Platelet Count 191 T/CUMM (130-400); Red Blood Count 3.42 MC/CUMM (3.8-5.5); Red Cell Distribution Width 20.7 % (9.3-17.3); White Blood Count 6.2 T/CUMM (4-12)
[2021-04-14 06:53] LABS: Osmolality,Calculated 269.4 MOS/KG (273-304)
[2021-04-14] MEDS: CYPROHEPTADINE 4 MG TABLET PO SCH ×3 (09:55→20:04)
[2021-04-14] MEDS: SODIUM BICARBONATE 650 MG TABLET PO SCH ×2 (09:55→20:04)
[2021-04-14] MEDS: valACYclovir 500 MG TABLET PO SCH ×2 (09:55→20:04)
[2021-04-14] MEDS: PANTOPRAZOLE 40 MG TABLET PO SCH (09:55)
[2021-04-14] MEDS: CITALOPRAM 20 MG TABLET PO SCH (09:55)
[2021-04-14] MEDS: FLUTICASONE 50 MCG NASAL SPRAY 16 GM BOTTLE BOTH NARES SCH ×2 (09:55→20:07)
[2021-04-14] MEDS: MEGESTROL ES 125 MG/ML 30 ML/BOTTLE PO SCH (09:55)
[2021-04-14] MEDS: HYDROCORTISONE 2.5% CREAM 30 GM TUBE TOP SCH ×2 (09:56→20:06)
[2021-04-14] MEDS: KETOCONAZOLE 2% CREAM 30 GM TUBE TOP SCH (09:56)
[2021-04-14] MEDS: ENOXAPARIN 40 MG/0.4 ML SYRINGE SUBCUT SCH (20:04)
[2021-04-15 05:47] LABS: Basophils % 0.5 % (0.0-0.8); Eosinophils # 0.1 10*3/uL (0.0-0.87); Eosinophils % 1.1 % (0.00-10.9); Hematocrit 36.1 VOL% (42.0-52.0); Hemoglobin 11.9 GM/DL (14.0-18.0); Immature Granulocytes Absolute 0.06 #; Lymphocytes # 0.4 10*3/uL (1.4-4.0); Lymphocytes % 6.2 % (21.2-54.2); Mean Corpuscular Volume 102.3 FL (87-102); Mean Platelet Volume 10.8 FL (9.6-12.0); Monocytes % 8.3 % (1.7-12.7); Neutrophils % 82.9 % (38.7-73.9); Platelet Count 185 T/CUMM (130-400); Red Blood Count 3.53 MC/CUMM (3.8-5.5); Red Cell Distribution Width 20.6 % (9.3-17.3); White Blood Count 6.2 T/CUMM (4-12)
[2021-04-15 05:52] LABS: Potassium 4.2 MMOL/L (3.5-5.1)
[2021-04-15] MEDS: valACYclovir 500 MG TABLET PO SCH ×2 (09:05→20:55)
[2021-04-15] MEDS: CYPROHEPTADINE 4 MG TABLET PO SCH ×3 (09:05→20:55)
[2021-04-15] MEDS: CITALOPRAM 20 MG TABLET PO SCH (09:06)
[2021-04-15] MEDS: SODIUM BICARBONATE 650 MG TABLET PO SCH ×2 (09:06→20:55)
[2021-04-15] MEDS: PANTOPRAZOLE 40 MG TABLET PO SCH (09:06)
[2021-04-15] MEDS: FLUCONAZOLE 200 MG TABLET PO SCH (09:06)
[2021-04-15] MEDS: FLUTICASONE 50 MCG NASAL SPRAY 16 GM BOTTLE BOTH NARES SCH ×2 (09:13→20:56)
[2021-04-15] MEDS: KETOCONAZOLE 2% CREAM 30 GM TUBE TOP SCH (09:13)
[2021-04-15] MEDS: RIFABUTIN 150 MG CAPSULE PO SCH (09:13)
[2021-04-15] MEDS: HYDROCORTISONE 2.5% CREAM 30 GM TUBE TOP SCH ×2 (09:13→20:56)
[2021-04-15] MEDS: MEGESTROL ES 125 MG/ML 30 ML/BOTTLE PO SCH (09:13)
[2021-04-15] MEDS: ENOXAPARIN 40 MG/0.4 ML SYRINGE SUBCUT SCH (20:56)
[2021-04-16 04:50] LABS: Basophils % 0.2 % (0.0-0.8); Eosinophils # 0.1 10*3/uL (0.0-0.87); Eosinophils % 0.9 % (0.00-10.9); Hematocrit 32.1 VOL% (42.0-52.0); Hemoglobin 10.6 GM/DL (14.0-18.0); Immature Granulocytes % 0.9 %; Immature Granulocytes Absolute 0.05 #; Lymphocytes # 0.4 10*3/uL (1.4-4.0); Lymphocytes % 7.4 % (21.2-54.2); Mean Corpuscular Volume 101.9 FL (87-102); Mean Platelet Volume 10.5 FL (9.6-12.0); Monocytes % 11.2 % (1.7-12.7); Neutrophils % 79.4 % (38.7-73.9); Platelet Count 170 T/CUMM (130-400); Red Blood Count 3.15 MC/CUMM (3.8-5.5); Red Cell Distribution Width 20.9 % (9.3-17.3); White Blood Count 5.7 T/CUMM (4-12)
[2021-04-16 05:15] LABS: Calcium 8.5 MG/DL (8.5-10.1); Osmolality,Calculated 273.1 MOS/KG (273-304)
[2021-04-16] MEDS: FLUCONAZOLE 200 MG TABLET PO SCH (08:44)
[2021-04-16] MEDS: CYPROHEPTADINE 4 MG TABLET PO SCH ×3 (08:44→20:19)
[2021-04-16] MEDS: SODIUM BICARBONATE 650 MG TABLET PO SCH ×2 (08:44→20:19)
[2021-04-16] MEDS: valACYclovir 500 MG TABLET PO SCH ×2 (08:44→20:20)
[2021-04-16] MEDS: CITALOPRAM 20 MG TABLET PO SCH (08:44)
[2021-04-16] MEDS: FLUTICASONE 50 MCG NASAL SPRAY 16 GM BOTTLE BOTH NARES SCH ×2 (08:45→21:06)
[2021-04-16] MEDS: PANTOPRAZOLE 40 MG TABLET PO SCH (08:45)
[2021-04-16] MEDS: MEGESTROL ES 125 MG/ML 30 ML/BOTTLE PO SCH (08:45)
[2021-04-16] MEDS: HYDROCORTISONE 2.5% CREAM 30 GM TUBE TOP SCH ×2 (08:46→20:20)
[2021-04-16] MEDS: KETOCONAZOLE 2% CREAM 30 GM TUBE TOP SCH (08:46)
[2021-04-16] MEDS: SULFAMETHOX/TRIMETHOPRIM 800-160 MG TABLET PO SCH (08:47)
[2021-04-16] MEDS: RIFABUTIN 150 MG CAPSULE PO SCH (09:28)
[2021-04-16] MEDS: ENOXAPARIN 40 MG/0.4 ML SYRINGE SUBCUT SCH (20:20)
[2021-04-17 05:54] LABS: Basophils % 0.2 % (0.0-0.8); Eosinophils # 0.1 10*3/uL (0.0-0.87); Eosinophils % 1.7 % (0.00-10.9); Hemoglobin 10.3 GM/DL (14.0-18.0); Immature Granulocytes % 0.7 %; Immature Granulocytes Absolute 0.03 #; Lymphocytes # 0.4 10*3/uL (1.4-4.0); Lymphocytes % 7.9 % (21.2-54.2); Mean Corpuscular HGB Conc 33.2 GM/DL (32-36); Mean Corpuscular Volume 102.3 FL (87-102); Mean Platelet Volume 10.5 FL (9.6-12.0); Neutrophils % 80.5 % (38.7-73.9); Platelet Count 173 T/CUMM (130-400); Red Blood Count 3.03 MC/CUMM (3.8-5.5); Red Cell Distribution Width 20.3 % (9.3-17.3); White Blood Count 4.6 T/CUMM (4-12)
[2021-04-17 06:19] LABS: Calcium 8.2 MG/DL (8.5-10.1); Osmolality,Calculated 273.1 MOS/KG (273-304); Potassium 3.6 MMOL/L (3.5-5.1)
[2021-04-17] MEDS: FLUCONAZOLE 200 MG TABLET PO SCH (08:31)
[2021-04-17] MEDS: valACYclovir 500 MG TABLET PO SCH ×2 (08:31→21:01)
[2021-04-17] MEDS: PANTOPRAZOLE 40 MG TABLET PO SCH (08:31)
[2021-04-17] MEDS: CITALOPRAM 20 MG TABLET PO SCH (08:32)
[2021-04-17] MEDS: SODIUM BICARBONATE 650 MG TABLET PO SCH ×2 (08:32→21:00)
[2021-04-17] MEDS: KETOCONAZOLE 2% CREAM 30 GM TUBE TOP SCH (08:33)
[2021-04-17] MEDS: FLUTICASONE 50 MCG NASAL SPRAY 16 GM BOTTLE BOTH NARES SCH ×2 (08:33→21:01)
[2021-04-17] MEDS: HYDROCORTISONE 2.5% CREAM 30 GM TUBE TOP SCH ×2 (08:33→21:01)
[2021-04-17] MEDS: MEGESTROL ES 125 MG/ML 30 ML/BOTTLE PO SCH (08:37)
[2021-04-17] MEDS: CYPROHEPTADINE 4 MG TABLET PO SCH ×3 (08:54→21:00)
[2021-04-17] MEDS: RIFABUTIN 150 MG CAPSULE PO SCH (09:46)
[2021-04-17] MEDS: ENOXAPARIN 40 MG/0.4 ML SYRINGE SUBCUT SCH (21:01)
[2021-04-18 05:27] LABS: Basophils % 0.3 % (0.0-0.8); Eosinophils # 0.1 10*3/uL (0.0-0.87); Eosinophils % 0.8 % (0.00-10.9); Hemoglobin 10.2 GM/DL (14.0-18.0); Immature Granulocytes % 0.9 %; Immature Granulocytes Absolute 0.07 #; Lymphocytes # 0.3 10*3/uL (1.4-4.0); Lymphocytes % 4.2 % (21.2-54.2); Mean Corpuscular HGB Conc 32.9 GM/DL (32-36); Mean Corpuscular Volume 102.6 FL (87-102); Mean Platelet Volume 10.6 FL (9.6-12.0); Monocytes % 6.4 % (1.7-12.7); Neutrophils % 87.4 % (38.7-73.9); Platelet Count 192 T/CUMM (130-400); Red Blood Count 3.02 MC/CUMM (3.8-5.5); Red Cell Distribution Width 20.2 % (9.3-17.3); White Blood Count 7.7 T/CUMM (4-12)
[2021-04-18 05:48] LABS: Eosinophils 1 % (0-10); Hypochromia Slight; Lymphocytes 6 % (20-55); Microcytosis Slight; Ovalocytes Slight; Platelet Estimate Adequate; Segmented Neutrophils 89 % (50-85); Total Cells Counted 100
[2021-04-18 05:49] LABS: Osmolality,Calculated 271.1 MOS/KG (273-304); Potassium 3.8 MMOL/L (3.5-5.1)
[2021-04-18] MEDS: CYPROHEPTADINE 4 MG TABLET PO SCH ×3 (09:12→21:24)
[2021-04-18] MEDS: FLUCONAZOLE 200 MG TABLET PO SCH (09:12)
[2021-04-18] MEDS: SULFAMETHOX/TRIMETHOPRIM 800-160 MG TABLET PO SCH (09:12)
[2021-04-18] MEDS: CITALOPRAM 20 MG TABLET PO SCH (09:13)
[2021-04-18] MEDS: MEGESTROL 400 MG/10 ML UDCUP PO SCH ×2 (09:41→22:06)
[2021-04-18] MEDS: RIFABUTIN 150 MG CAPSULE PO SCH (17:24)
[2021-04-18] MEDS: ENOXAPARIN 40 MG/0.4 ML SYRINGE SUBCUT SCH (21:24)
[2021-04-19] MEDS: FLUCONAZOLE 200 MG TABLET PO SCH (08:23)
[2021-04-19] MEDS: CITALOPRAM 20 MG TABLET PO SCH (08:23)
[2021-04-19] MEDS: CYPROHEPTADINE 4 MG TABLET PO SCH ×3 (08:23→20:37)
[2021-04-19] MEDS: RIFABUTIN 150 MG CAPSULE PO SCH (08:23)
[2021-04-19] MEDS: MEGESTROL 400 MG/10 ML UDCUP PO SCH ×2 (08:24→20:39)
[2021-04-19] MEDS: ENOXAPARIN 40 MG/0.4 ML SYRINGE SUBCUT SCH (20:39)
[2021-04-20] MEDS: MEGESTROL 400 MG/10 ML UDCUP PO SCH ×2 (09:57→22:02)
[2021-04-20] MEDS: CYPROHEPTADINE 4 MG TABLET PO SCH ×3 (09:58→22:02)
[2021-04-20] MEDS: CITALOPRAM 20 MG TABLET PO SCH (09:58)
[2021-04-20] MEDS: FLUCONAZOLE 200 MG TABLET PO SCH (09:58)
[2021-04-20] MEDS: SULFAMETHOX/TRIMETHOPRIM 800-160 MG TABLET PO SCH (09:58)
[2021-04-20] MEDS: RIFABUTIN 150 MG CAPSULE PO SCH (09:58)
[2021-04-20] MEDS: ENOXAPARIN 40 MG/0.4 ML SYRINGE SUBCUT SCH (22:02)
[2021-04-21] MEDS ORDERED: lisinopriL 10 MG TABLET PO SCH (09:00)
[2021-04-21] MEDS: MEGESTROL 400 MG/10 ML UDCUP PO SCH ×2 (09:12→22:19)
[2021-04-21] MEDS: CITALOPRAM 20 MG TABLET PO SCH (09:13)
[2021-04-21] MEDS: CYPROHEPTADINE 4 MG TABLET PO SCH ×3 (09:13→22:19)
[2021-04-21] MEDS: FLUCONAZOLE 200 MG TABLET PO SCH (09:13)
[2021-04-21] MEDS: SULFAMETHOX/TRIMETHOPRIM 800-160 MG TABLET PO SCH (09:13)
[2021-04-21 09:25] LABS: Eosinophils # 0.1 10*3/uL (0.0-0.87); Hematocrit 32.5 VOL% (42.0-52.0); Hemoglobin 10.6 GM/DL (14.0-18.0); Immature Granulocytes % 1.5 %; Immature Granulocytes Absolute 0.05 #; Lymphocytes # 0.5 10*3/uL (1.4-4.0); Lymphocytes % 13.7 % (21.2-54.2); Mean Corpuscular HGB Conc 32.6 GM/DL (32-36); Mean Corpuscular Volume 102.2 FL (87-102); Mean Platelet Volume 10.5 FL (9.6-12.0); Monocytes % 6.4 % (1.7-12.7); Neutrophils % 75.4 % (38.7-73.9); Platelet Count 223 T/CUMM (130-400); Red Blood Count 3.18 MC/CUMM (3.8-5.5); Red Cell Distribution Width 19.9 % (9.3-17.3); White Blood Count 3.3 T/CUMM (4-12)
[2021-04-21] MEDS: RIFABUTIN 150 MG CAPSULE PO SCH (09:54)
[2021-04-21 15:40] LABS: Bilirubin,Urine Negative (Negative); Blood, Urine Negative (Negative); Calcium Oxalate Crystals,Urine Occasional /HPF (Few); Glucose,Urine (UA) Negative (Negative); Ketones,Urine Negative (Negative); Nitrite,Urine Negative (Negative); Protein,Urine Negative; Squamous Epithelial Cell,Urine Occasional /HPF (0-10); Urine Appearance CLEAR (Clear); Urine Color Yellow (Yellow); Urine Specific Gravity 1.014 (1.001-1.035); Urine Urobilinogen < 2.0 EU/DL (<2.0)
[2021-04-21] MEDS: ENOXAPARIN 40 MG/0.4 ML SYRINGE SUBCUT SCH (22:19)
[2021-04-22] MEDS: MEGESTROL 400 MG/10 ML UDCUP PO SCH ×2 (09:09→21:07)
[2021-04-22] MEDS: lisinopriL 20 MG TABLET PO SCH (09:09)
[2021-04-22] MEDS: CYPROHEPTADINE 4 MG TABLET PO SCH ×3 (09:09→21:06)
[2021-04-22] MEDS: CITALOPRAM 20 MG TABLET PO SCH (09:09)
[2021-04-22] MEDS: FLUCONAZOLE 200 MG TABLET PO SCH (09:09)
[2021-04-22] MEDS: RIFABUTIN 150 MG CAPSULE PO SCH (09:16)
[2021-04-22] MEDS: ACETAMINOPHEN 325 MG TABLET PO PRN (21:06)
[2021-04-22] MEDS: ENOXAPARIN 40 MG/0.4 ML SYRINGE SUBCUT SCH (21:07)
[2021-04-23 05:31] LABS: Basophils % 0.5 % (0.0-0.8); Eosinophils # 0.2 10*3/uL (0.0-0.87); Hematocrit 31.4 VOL% (42.0-52.0); Hemoglobin 10.4 GM/DL (14.0-18.0); Lymphocytes # 0.5 10*3/uL (1.4-4.0); Lymphocytes % 12.2 % (21.2-54.2); Mean Corpuscular HGB Conc 33.1 GM/DL (32-36); Mean Corpuscular Volume 104.3 FL (87-102); Mean Platelet Volume 10.2 FL (9.6-12.0); Monocytes % 17.1 % (1.7-12.7); Neutrophils % 61.2 % (38.7-73.9); Platelet Count 255 T/CUMM (130-400); Red Blood Count 3.01 MC/CUMM (3.8-5.5)
[2021-04-23 06:00] LABS: Osmolality,Calculated 273.1 MOS/KG (273-304); Potassium 4.5 MMOL/L (3.5-5.1)
[2021-04-23 06:01] LABS: Eosinophils 2 % (0-10); Hypochromia Slight; Lymphocytes 17 % (20-55); Microcytosis Slight; Platelet Estimate Adequate; Segmented Neutrophils 63 % (50-85); Total Cells Counted 100
[2021-04-23] MEDS: MEGESTROL 400 MG/10 ML UDCUP PO SCH ×2 (10:48→20:49)
[2021-04-23] MEDS: FLUCONAZOLE 200 MG TABLET PO SCH (10:49)
[2021-04-23] MEDS: CITALOPRAM 20 MG TABLET PO SCH (10:49)
[2021-04-23] MEDS: CYPROHEPTADINE 4 MG TABLET PO SCH ×3 (10:49→20:49)
[2021-04-23] MEDS: RIFABUTIN 150 MG CAPSULE PO SCH (10:49)
[2021-04-23] MEDS: lisinopriL 20 MG TABLET PO SCH (10:49)
[2021-04-23] MEDS: SULFAMETHOX/TRIMETHOPRIM 800-160 MG TABLET PO SCH (10:49)
[2021-04-23] MEDS: ENOXAPARIN 40 MG/0.4 ML SYRINGE SUBCUT SCH (20:49)
[2021-04-23] MEDS: ACETAMINOPHEN 325 MG TABLET PO PRN (20:49)
[2021-04-24] MEDS: MEGESTROL 400 MG/10 ML UDCUP PO SCH ×2 (09:00→21:58)
[2021-04-24] MEDS: CYPROHEPTADINE 4 MG TABLET PO SCH ×3 (09:00→21:58)
[2021-04-24] MEDS: FLUCONAZOLE 200 MG TABLET PO SCH (09:00)
[2021-04-24] MEDS: lisinopriL 20 MG TABLET PO SCH (09:01)
[2021-04-24] MEDS: CITALOPRAM 20 MG TABLET PO SCH (09:01)
[2021-04-24] MEDS: RIFABUTIN 150 MG CAPSULE PO SCH (09:01)
[2021-04-24] MEDS: ENOXAPARIN 40 MG/0.4 ML SYRINGE SUBCUT SCH (21:58)
[2021-04-24] MEDS: ACETAMINOPHEN 325 MG TABLET PO PRN (21:58)
[2021-04-25] MEDS: MEGESTROL 400 MG/10 ML UDCUP PO SCH ×2 (08:40→22:35)
[2021-04-25] MEDS: lisinopriL 20 MG TABLET PO SCH (08:41)
[2021-04-25] MEDS: RIFABUTIN 150 MG CAPSULE PO SCH (08:41)
[2021-04-25] MEDS: SULFAMETHOX/TRIMETHOPRIM 800-160 MG TABLET PO SCH (08:41)
[2021-04-25] MEDS: CITALOPRAM 20 MG TABLET PO SCH (08:41)
[2021-04-25] MEDS: FLUCONAZOLE 200 MG TABLET PO SCH (08:41)
[2021-04-25] MEDS: CYPROHEPTADINE 4 MG TABLET PO SCH ×3 (08:41→22:34)
[2021-04-25] MEDS: ENOXAPARIN 40 MG/0.4 ML SYRINGE SUBCUT SCH (22:34)
[2021-04-26] MEDS: RIFABUTIN 150 MG CAPSULE PO SCH (11:28)
[2021-04-26] MEDS: FLUCONAZOLE 200 MG TABLET PO SCH (11:28)
[2021-04-26] MEDS: lisinopriL 20 MG TABLET PO SCH (11:28)
[2021-04-26] MEDS: MEGESTROL 400 MG/10 ML UDCUP PO SCH ×2 (11:28→20:37)
[2021-04-26] MEDS: CYPROHEPTADINE 4 MG TABLET PO SCH ×3 (11:28→20:37)
[2021-04-26] MEDS: CITALOPRAM 20 MG TABLET PO SCH (11:28)
[2021-04-26] MEDS: ENOXAPARIN 40 MG/0.4 ML SYRINGE SUBCUT SCH (20:37)
[2021-04-27] MEDS: lisinopriL 20 MG TABLET PO SCH (09:15)
[2021-04-27] MEDS: MEGESTROL 400 MG/10 ML UDCUP PO SCH ×2 (09:15→20:23)
[2021-04-27] MEDS: CYPROHEPTADINE 4 MG TABLET PO SCH ×3 (09:15→20:23)
[2021-04-27] MEDS: CITALOPRAM 20 MG TABLET PO SCH (09:15)
[2021-04-27] MEDS: SULFAMETHOX/TRIMETHOPRIM 800-160 MG TABLET PO SCH (09:15)
[2021-04-27] MEDS: RIFABUTIN 150 MG CAPSULE PO SCH (09:15)
[2021-04-27] MEDS: FLUCONAZOLE 200 MG TABLET PO SCH (09:15)
[2021-04-27] MEDS ORDERED: DEXTROSE 10% 250 ML BAG IV PRN (10:30)
[2021-04-27] MEDS: ENOXAPARIN 40 MG/0.4 ML SYRINGE SUBCUT SCH (20:23)
[2021-04-28] MEDS: RIFABUTIN 150 MG CAPSULE PO SCH (08:37)
[2021-04-28] MEDS: FLUCONAZOLE 200 MG TABLET PO SCH (08:37)
[2021-04-28] MEDS: CYPROHEPTADINE 4 MG TABLET PO SCH ×3 (08:37→20:36)
[2021-04-28] MEDS: CITALOPRAM 20 MG TABLET PO SCH (08:37)
[2021-04-28] MEDS: MEGESTROL 400 MG/10 ML UDCUP PO SCH ×2 (08:37→20:36)
[2021-04-28] MEDS: lisinopriL 20 MG TABLET PO SCH (08:37)
[2021-04-28] MEDS: ENOXAPARIN 40 MG/0.4 ML SYRINGE SUBCUT SCH (20:36)
[2021-04-29 07:20] LABS: Basophils % 0.2 % (0.0-0.8); Eosinophils # 0.2 10*3/uL (0.0-0.87); Eosinophils % 2.1 % (0.00-10.9); Hematocrit 34.3 VOL% (42.0-52.0); Hemoglobin 11.3 GM/DL (14.0-18.0); Immature Granulocytes % 1.9 %; Immature Granulocytes Absolute 0.17 #; Lymphocytes # 0.6 10*3/uL (1.4-4.0); Lymphocytes % 6.3 % (21.2-54.2); Mean Corpuscular HGB Conc 32.9 GM/DL (32-36); Mean Corpuscular Volume 103.9 FL (87-102); Neutrophils % 82.5 % (38.7-73.9); Platelet Count 299 T/CUMM (130-400); Red Cell Distribution Width 19.3 % (9.3-17.3); White Blood Count 8.7 T/CUMM (4-12)
[2021-04-29 07:54] LABS: Calcium 8.8 MG/DL (8.5-10.1); Osmolality,Calculated 266.8 MOS/KG (273-304); Potassium 5.3 MMOL/L (3.5-5.1)
[2021-04-29 08:08] LABS: Anisocytosis 1+; Band Neutrophils 11 % (0-10); Eosinophils 5 % (0-10); Lymphocytes 6 % (20-55); Macrocytosis 1+; Ovalocytes Few; Platelet Estimate Normal; Segmented Neutrophils 71 % (50-85); Total Cells Counted 100
[2021-04-29] MEDS ORDERED: SODIUM POLYSTYRENE SULFATE 15 GM/60 ML BOTTLE PO ONE (08:51)
[2021-04-29] MEDS: RIFABUTIN 150 MG CAPSULE PO SCH (08:59)
[2021-04-29] MEDS: CITALOPRAM 20 MG TABLET PO SCH (08:59)
[2021-04-29] MEDS: CYPROHEPTADINE 4 MG TABLET PO SCH ×3 (08:59→20:31)
[2021-04-29] MEDS: FLUCONAZOLE 200 MG TABLET PO SCH (08:59)
[2021-04-29] MEDS: MEGESTROL 400 MG/10 ML UDCUP PO SCH ×2 (08:59→20:31)
[2021-04-29] MEDS: lisinopriL 10 MG TABLET PO SCH (10:12)
[2021-04-29] MEDS: ENOXAPARIN 40 MG/0.4 ML SYRINGE SUBCUT SCH (20:31)
[2021-04-30 05:53] LABS: Calcium 8.2 MG/DL (8.5-10.1); Osmolality,Calculated 268.8 MOS/KG (273-304); Potassium 4.6 MMOL/L (3.5-5.1)
[2021-04-30] MEDS: CITALOPRAM 20 MG TABLET PO SCH (08:02)
[2021-04-30] MEDS: MEGESTROL 400 MG/10 ML UDCUP PO SCH ×2 (08:02→20:01)
[2021-04-30] MEDS: SULFAMETHOX/TRIMETHOPRIM 800-160 MG TABLET PO SCH (08:02)
[2021-04-30] MEDS: FLUCONAZOLE 200 MG TABLET PO SCH (08:02)
[2021-04-30] MEDS: CYPROHEPTADINE 4 MG TABLET PO SCH ×3 (08:03→20:01)
[2021-04-30] MEDS: RIFABUTIN 150 MG CAPSULE PO SCH (08:03)
[2021-04-30] MEDS: lisinopriL 10 MG TABLET PO SCH (08:03)
[2021-04-30] MEDS: ENOXAPARIN 40 MG/0.4 ML SYRINGE SUBCUT SCH (20:01)
[2021-05-01 05:54] LABS: Basophils % 0.6 % (0.0-0.8); Eosinophils # 0.2 10*3/uL (0.0-0.87); Eosinophils % 5.3 % (0.00-10.9); Hematocrit 31.8 VOL% (42.0-52.0); Hemoglobin 10.4 GM/DL (14.0-18.0); Immature Granulocytes % 3.1 %; Immature Granulocytes Absolute 0.11 #; Lymphocytes # 0.5 10*3/uL (1.4-4.0); Lymphocytes % 13.1 % (21.2-54.2); Mean Corpuscular HGB Conc 32.7 GM/DL (32-36); Mean Corpuscular Volume 102.3 FL (87-102); Neutrophils % 63.9 % (38.7-73.9); Platelet Count 275 T/CUMM (130-400); Red Blood Count 3.11 MC/CUMM (3.8-5.5); Red Cell Distribution Width 18.9 % (9.3-17.3); White Blood Count 3.6 T/CUMM (4-12)
[2021-05-01 06:28] LABS: Calcium 8.6 MG/DL (8.5-10.1); Osmolality,Calculated 269.9 MOS/KG (273-304); Potassium 4.8 MMOL/L (3.5-5.1)
[2021-05-01] MEDS: RIFABUTIN 150 MG CAPSULE PO SCH (09:41)
[2021-05-01] MEDS: MEGESTROL 400 MG/10 ML UDCUP PO SCH ×2 (09:41→21:02)
[2021-05-01] MEDS: lisinopriL 10 MG TABLET PO SCH (09:41)
[2021-05-01] MEDS: CYPROHEPTADINE 4 MG TABLET PO SCH ×3 (09:41→21:02)
[2021-05-01] MEDS: FLUCONAZOLE 200 MG TABLET PO SCH (09:41)
[2021-05-01] MEDS: MAGNESIUM SULF RIDER 2 GM/50 ML PREMIX IV PRN (09:42)
[2021-05-01] MEDS: ENOXAPARIN 40 MG/0.4 ML SYRINGE SUBCUT SCH (21:02)
[2021-05-02 05:19] LABS: Basophils % 0.9 % (0.0-0.8); Eosinophils # 0.2 10*3/uL (0.0-0.87); Eosinophils % 4.2 % (0.00-10.9); Hematocrit 32.1 VOL% (42.0-52.0); Hemoglobin 10.5 GM/DL (14.0-18.0); Immature Granulocytes % 3.2 %; Immature Granulocytes Absolute 0.14 #; Lymphocytes # 0.5 10*3/uL (1.4-4.0); Mean Corpuscular HGB Conc 32.7 GM/DL (32-36); Mean Corpuscular Volume 103.5 FL (87-102); Monocytes % 16.9 % (1.7-12.7); Neutrophils % 62.8 % (38.7-73.9); Platelet Count 271 T/CUMM (130-400); Red Cell Distribution Width 18.5 % (9.3-17.3); White Blood Count 4.3 T/CUMM (4-12)
[2021-05-02 05:46] LABS: Band Neutrophils 1 % (0-10); Calcium 8.5 MG/DL (8.5-10.1); Eosinophils 2 % (0-10); Hypochromia Slight; Lymphocytes 9 % (20-55); Microcytosis Slight; Osmolality,Calculated 270.7 MOS/KG (273-304); Platelet Estimate Adequate; Potassium 5.3 MMOL/L (3.5-5.1); Segmented Neutrophils 66 % (50-85); Total Cells Counted 100
[2021-05-02] MEDS: RIFABUTIN 150 MG CAPSULE PO SCH (08:20)
[2021-05-02] MEDS: lisinopriL 10 MG TABLET PO SCH (08:20)
[2021-05-02] MEDS: SULFAMETHOX/TRIMETHOPRIM 800-160 MG TABLET PO SCH (08:20)
[2021-05-02] MEDS: CYPROHEPTADINE 4 MG TABLET PO SCH ×3 (08:20→20:08)
[2021-05-02] MEDS: FLUCONAZOLE 200 MG TABLET PO SCH (08:20)
[2021-05-02] MEDS: MEGESTROL 400 MG/10 ML UDCUP PO SCH ×2 (08:20→20:08)
[2021-05-02] MEDS: ENOXAPARIN 40 MG/0.4 ML SYRINGE SUBCUT SCH (20:11)
[2021-05-03 06:34] LABS: Calcium 8.7 MG/DL (8.5-10.1); Osmolality,Calculated 266.9 MOS/KG (273-304); Potassium 5.2 MMOL/L (3.5-5.1)
[2021-05-03] MEDS: CYPROHEPTADINE 4 MG TABLET PO SCH ×3 (08:17→20:47)
[2021-05-03] MEDS: MAGNESIUM SULF RIDER 2 GM/50 ML PREMIX IV PRN (08:17)
[2021-05-03] MEDS: MEGESTROL 400 MG/10 ML UDCUP PO SCH ×2 (08:17→20:47)
[2021-05-03] MEDS: RIFABUTIN 150 MG CAPSULE PO SCH (08:17)
[2021-05-03] MEDS: lisinopriL 10 MG TABLET PO SCH (08:17)
[2021-05-03] MEDS: FLUCONAZOLE 200 MG TABLET PO SCH (08:17)
[2021-05-03] MEDS: SODIUM CHLORIDE 0.9% 1,000 ML IV SCH (13:54)
[2021-05-03] MEDS: ENOXAPARIN 40 MG/0.4 ML SYRINGE SUBCUT SCH (20:51)
[2021-05-04] MEDS: SODIUM CHLORIDE 0.9% 1,000 ML IV SCH ×2 (02:53→15:58)
[2021-05-04 05:36] LABS: Basophils % 0.4 % (0.0-0.8); Eosinophils % 0.8 % (0.00-10.9); Hematocrit 31.3 VOL% (42.0-52.0); Hemoglobin 10.4 GM/DL (14.0-18.0); Immature Granulocytes % 1.3 %; Immature Granulocytes Absolute 0.07 #; Lymphocytes # 0.4 10*3/uL (1.4-4.0); Lymphocytes % 7.8 % (21.2-54.2); Mean Corpuscular HGB Conc 33.2 GM/DL (32-36); Mean Corpuscular Volume 102.3 FL (87-102); Mean Platelet Volume 9.5 FL (9.6-12.0); Monocytes % 9.7 % (1.7-12.7); Platelet Count 218 T/CUMM (130-400); Red Blood Count 3.06 MC/CUMM (3.8-5.5); Red Cell Distribution Width 18.4 % (9.3-17.3); White Blood Count 5.3 T/CUMM (4-12)
[2021-05-04 05:46] LABS: Calcium 8.6 MG/DL (8.5-10.1); Osmolality,Calculated 268.8 MOS/KG (273-304); Potassium 5.1 MMOL/L (3.5-5.1)
[2021-05-04] MEDS: lisinopriL 10 MG TABLET PO SCH (10:57)
[2021-05-04] MEDS: RIFABUTIN 150 MG CAPSULE PO SCH (10:57)
[2021-05-04] MEDS: MEGESTROL 400 MG/10 ML UDCUP PO SCH ×2 (10:57→20:16)
[2021-05-04] MEDS: CYPROHEPTADINE 4 MG TABLET PO SCH ×3 (10:57→20:15)
[2021-05-04] MEDS: SULFAMETHOX/TRIMETHOPRIM 800-160 MG TABLET PO SCH (10:58)
[2021-05-04] MEDS: FLUCONAZOLE 200 MG TABLET PO SCH (10:58)
[2021-05-04] MEDS: ENOXAPARIN 40 MG/0.4 ML SYRINGE SUBCUT SCH (20:16)
[2021-05-05 05:57] LABS: Calcium 8.2 MG/DL (8.5-10.1); Osmolality,Calculated 267.8 MOS/KG (273-304); Potassium 5.3 MMOL/L (3.5-5.1)
[2021-05-05] MEDS: MEGESTROL 400 MG/10 ML UDCUP PO SCH ×2 (09:23→21:42)
[2021-05-05] MEDS: RIFABUTIN 150 MG CAPSULE PO SCH (09:23)
[2021-05-05] MEDS: lisinopriL 10 MG TABLET PO SCH (09:23)
[2021-05-05] MEDS: SODIUM CHLORIDE 0.9% 1,000 ML IV SCH (09:23)
[2021-05-05] MEDS: CYPROHEPTADINE 4 MG TABLET PO SCH ×3 (09:23→21:42)
[2021-05-05] MEDS: MAGNESIUM SULF RIDER 2 GM/50 ML PREMIX IV PRN (09:23)
[2021-05-05] MEDS: FLUCONAZOLE 200 MG TABLET PO SCH (09:23)
[2021-05-05] MEDS: ENOXAPARIN 40 MG/0.4 ML SYRINGE SUBCUT SCH (21:42)
[2021-05-06] MEDS: SODIUM CHLORIDE 0.9% 1,000 ML IV SCH ×2 (03:50→18:00)
[2021-05-06 06:39] LABS: Basophils % 0.6 % (0.0-0.8); Eosinophils # 0.1 10*3/uL (0.0-0.87); Eosinophils % 3.9 % (0.00-10.9); Hematocrit 31.5 VOL% (42.0-52.0); Hemoglobin 10.3 GM/DL (14.0-18.0); Immature Granulocytes % 3.6 %; Immature Granulocytes Absolute 0.11 #; Lymphocytes # 0.4 10*3/uL (1.4-4.0); Mean Corpuscular HGB Conc 32.7 GM/DL (32-36); Mean Corpuscular Volume 102.9 FL (87-102); Mean Platelet Volume 10.1 FL (9.6-12.0); Neutrophils % 64.9 % (38.7-73.9); Platelet Count 207 T/CUMM (130-400); Red Blood Count 3.06 MC/CUMM (3.8-5.5); White Blood Count 3.1 T/CUMM (4-12)
[2021-05-06 07:03] LABS: Calcium 8.4 MG/DL (8.5-10.1); Osmolality,Calculated 265.7 MOS/KG (273-304); Potassium 4.7 MMOL/L (3.5-5.1)
[2021-05-06] MEDS: lisinopriL 10 MG TABLET PO SCH (10:23)
[2021-05-06] MEDS: RIFABUTIN 150 MG CAPSULE PO SCH (10:23)
[2021-05-06] MEDS: FLUCONAZOLE 200 MG TABLET PO SCH (10:23)
[2021-05-06] MEDS: CYPROHEPTADINE 4 MG TABLET PO SCH ×3 (10:24→20:35)
[2021-05-06] MEDS: MEGESTROL 400 MG/10 ML UDCUP PO SCH ×2 (10:24→20:35)
[2021-05-06] MEDS: ENOXAPARIN 40 MG/0.4 ML SYRINGE SUBCUT SCH (20:35)
[2021-05-07 05:33] LABS: Basophils % 0.6 % (0.0-0.8); Eosinophils # 0.1 10*3/uL (0.0-0.87); Eosinophils % 4.1 % (0.00-10.9); Hematocrit 29.5 VOL% (42.0-52.0); Hemoglobin 9.8 GM/DL (14.0-18.0); Immature Granulocytes % 2.8 %; Immature Granulocytes Absolute 0.09 #; Lymphocytes # 0.5 10*3/uL (1.4-4.0); Lymphocytes % 14.4 % (21.2-54.2); Mean Corpuscular HGB Conc 33.2 GM/DL (32-36); Mean Corpuscular Volume 103.1 FL (87-102); Mean Platelet Volume 10.1 FL (9.6-12.0); Monocytes % 14.7 % (1.7-12.7); Neutrophils % 63.4 % (38.7-73.9); Platelet Count 190 T/CUMM (130-400); Red Blood Count 2.86 MC/CUMM (3.8-5.5); Red Cell Distribution Width 17.4 % (9.3-17.3); White Blood Count 3.2 T/CUMM (4-12)
[2021-05-07 06:01] LABS: Calcium 8.1 MG/DL (8.5-10.1); Osmolality,Calculated 271.1 MOS/KG (273-304); Potassium 4.6 MMOL/L (3.5-5.1)
[2021-05-07] MEDS: SODIUM CHLORIDE 0.9% 1,000 ML IV SCH ×2 (06:14→21:35)
[2021-05-07] MEDS: CYPROHEPTADINE 4 MG TABLET PO SCH ×3 (09:22→20:24)
[2021-05-07] MEDS: RIFABUTIN 150 MG CAPSULE PO SCH (09:22)
[2021-05-07] MEDS: lisinopriL 10 MG TABLET PO SCH (09:22)
[2021-05-07] MEDS: MEGESTROL 400 MG/10 ML UDCUP PO SCH ×2 (09:23→20:24)
[2021-05-07] MEDS: FLUCONAZOLE 200 MG TABLET PO SCH (09:23)
[2021-05-07] MEDS: SULFAMETHOX/TRIMETHOPRIM 800-160 MG TABLET PO SCH (09:23)
[2021-05-07] MEDS ORDERED: TUBERCULIN SKIN TEST 0.1 ML SYRINGE INTRADERM ONE (17:00)
[2021-05-07] MEDS: ENOXAPARIN 40 MG/0.4 ML SYRINGE SUBCUT SCH (20:24)
[2021-05-08 06:32] LABS: Basophils % 0.6 % (0.0-0.8); Eosinophils # 0.1 10*3/uL (0.0-0.87); Eosinophils % 4.1 % (0.00-10.9); Hematocrit 30.4 VOL% (42.0-52.0); Hemoglobin 10.2 GM/DL (14.0-18.0); Immature Granulocytes % 2.8 %; Immature Granulocytes Absolute 0.09 #; Lymphocytes # 0.4 10*3/uL (1.4-4.0); Mean Corpuscular HGB Conc 33.6 GM/DL (32-36); Mean Corpuscular Volume 101.7 FL (87-102); Mean Platelet Volume 10.3 FL (9.6-12.0); Monocytes % 13.2 % (1.7-12.7); Neutrophils % 68.3 % (38.7-73.9); Platelet Count 177 T/CUMM (130-400); Red Blood Count 2.99 MC/CUMM (3.8-5.5); Red Cell Distribution Width 17.5 % (9.3-17.3); White Blood Count 3.2 T/CUMM (4-12)
[2021-05-08 06:47] LABS: Calcium 8.1 MG/DL (8.5-10.1); Osmolality,Calculated 269.4 MOS/KG (273-304); Potassium 4.7 MMOL/L (3.5-5.1)
[2021-05-08] MEDS: CYPROHEPTADINE 4 MG TABLET PO SCH ×3 (09:00→20:55)
[2021-05-08] MEDS: MAGNESIUM OXIDE 400 MG TABLET PO SCH (09:00)
[2021-05-08] MEDS: FLUCONAZOLE 200 MG TABLET PO SCH (09:00)
[2021-05-08] MEDS: MEGESTROL 400 MG/10 ML UDCUP PO SCH ×2 (09:01→20:55)
[2021-05-08] MEDS: RIFABUTIN 150 MG CAPSULE PO SCH (09:01)
[2021-05-08] MEDS: lisinopriL 10 MG TABLET PO SCH (09:01)
[2021-05-08] MEDS: SODIUM CHLORIDE 0.9% 1,000 ML IV SCH ×2 (10:24→22:43)
[2021-05-08] MEDS: ENOXAPARIN 40 MG/0.4 ML SYRINGE SUBCUT SCH (20:59)
[2021-05-09 05:48] LABS: Calcium 8.1 MG/DL (8.5-10.1); Osmolality,Calculated 270.4 MOS/KG (273-304); Potassium 4.6 MMOL/L (3.5-5.1)
[2021-05-09] MEDS: CYPROHEPTADINE 4 MG TABLET PO SCH ×3 (10:06→21:40)
[2021-05-09] MEDS: RIFABUTIN 150 MG CAPSULE PO SCH (10:06)
[2021-05-09] MEDS: FLUCONAZOLE 200 MG TABLET PO SCH (10:07)
[2021-05-09] MEDS: lisinopriL 10 MG TABLET PO SCH (10:07)
[2021-05-09] MEDS: SULFAMETHOX/TRIMETHOPRIM 800-160 MG TABLET PO SCH (10:07)
[2021-05-09] MEDS: MEGESTROL 400 MG/10 ML UDCUP PO SCH ×2 (10:07→21:40)
[2021-05-09] MEDS: MAGNESIUM OXIDE 400 MG TABLET PO SCH (10:07)
[2021-05-09] MEDS: SODIUM CHLORIDE 0.9% 1,000 ML IV SCH ×2 (11:12→16:41)
[2021-05-09] MEDS ORDERED: MAGNESIUM SULF RIDER 4 GM/100 ML PREMIX IV ONE (15:00)
[2021-05-09] MEDS: ENOXAPARIN 40 MG/0.4 ML SYRINGE SUBCUT SCH (21:40)
[2021-05-10] MEDS: SODIUM CHLORIDE 0.9% 1,000 ML IV SCH ×2 (04:44→16:46)
[2021-05-10 06:52] LABS: Basophils % 0.6 % (0.0-0.8); Eosinophils # 0.2 10*3/uL (0.0-0.87); Eosinophils % 4.2 % (0.00-10.9); Hematocrit 30.4 VOL% (42.0-52.0); Hemoglobin 10.1 GM/DL (14.0-18.0); Immature Granulocytes Absolute 0.07 #; Lymphocytes # 0.4 10*3/uL (1.4-4.0); Lymphocytes % 10.7 % (21.2-54.2); Mean Corpuscular HGB Conc 33.2 GM/DL (32-36); Mean Corpuscular Volume 103.1 FL (87-102); Mean Platelet Volume 10.6 FL (9.6-12.0); Monocytes % 11.8 % (1.7-12.7); Neutrophils % 70.7 % (38.7-73.9); Platelet Count 166 T/CUMM (130-400); Red Blood Count 2.95 MC/CUMM (3.8-5.5); Red Cell Distribution Width 17.5 % (9.3-17.3); White Blood Count 3.6 T/CUMM (4-12)
[2021-05-10 07:19] LABS: Calcium 8.2 MG/DL (8.5-10.1); Osmolality,Calculated 273.1 MOS/KG (273-304); Potassium 4.7 MMOL/L (3.5-5.1)
[2021-05-10] MEDS: lisinopriL 10 MG TABLET PO SCH (09:28)
[2021-05-10] MEDS: CYPROHEPTADINE 4 MG TABLET PO SCH ×3 (09:28→20:45)
[2021-05-10] MEDS: MAGNESIUM OXIDE 400 MG TABLET PO SCH (09:28)
[2021-05-10] MEDS: FLUCONAZOLE 200 MG TABLET PO SCH (09:28)
[2021-05-10] MEDS: RIFABUTIN 150 MG CAPSULE PO SCH (09:28)
[2021-05-10] MEDS: MEGESTROL 400 MG/10 ML UDCUP PO SCH ×2 (09:28→20:45)
[2021-05-10] MEDS: ENOXAPARIN 40 MG/0.4 ML SYRINGE SUBCUT SCH (20:45)
[2021-05-11] MEDS: SODIUM CHLORIDE 0.9% 1,000 ML IV SCH ×2 (04:53→18:13)
[2021-05-11] MEDS: lisinopriL 10 MG TABLET PO SCH (09:52)
[2021-05-11] MEDS: SULFAMETHOX/TRIMETHOPRIM 800-160 MG TABLET PO SCH (09:52)
[2021-05-11] MEDS: FLUCONAZOLE 200 MG TABLET PO SCH (09:52)
[2021-05-11] MEDS: CYPROHEPTADINE 4 MG TABLET PO SCH ×3 (09:52→21:21)
[2021-05-11] MEDS: MAGNESIUM OXIDE 400 MG TABLET PO SCH (09:52)
[2021-05-11] MEDS: RIFABUTIN 150 MG CAPSULE PO SCH (09:53)
[2021-05-11] MEDS: MEGESTROL 400 MG/10 ML UDCUP PO SCH ×2 (09:56→21:21)
[2021-05-11] MEDS: ENOXAPARIN 40 MG/0.4 ML SYRINGE SUBCUT SCH (21:21)
[2021-05-12 06:14] LABS: Basophils % 0.2 % (0.0-0.8); Eosinophils # 0.2 10*3/uL (0.0-0.87); Eosinophils % 3.8 % (0.00-10.9); Hematocrit 28.5 VOL% (42.0-52.0); Hemoglobin 9.5 GM/DL (14.0-18.0); Immature Granulocytes % 1.8 %; Immature Granulocytes Absolute 0.08 #; Lymphocytes # 0.5 10*3/uL (1.4-4.0); Lymphocytes % 11.3 % (21.2-54.2); Mean Corpuscular HGB Conc 33.3 GM/DL (32-36); Mean Corpuscular Volume 103.3 FL (87-102); Mean Platelet Volume 10.3 FL (9.6-12.0); Monocytes % 9.3 % (1.7-12.7); Neutrophils % 73.6 % (38.7-73.9); Platelet Count 159 T/CUMM (130-400); Red Blood Count 2.76 MC/CUMM (3.8-5.5); Red Cell Distribution Width 17.4 % (9.3-17.3); White Blood Count 4.4 T/CUMM (4-12)
[2021-05-12] MEDS: SODIUM CHLORIDE 0.9% 1,000 ML IV SCH (06:23)
[2021-05-12 06:29] LABS: Calcium 7.9 MG/DL (8.5-10.1); Osmolality,Calculated 271.1 MOS/KG (273-304); Potassium 4.1 MMOL/L (3.5-5.1)
[2021-05-12 06:42] LABS: Hypochromia Slight; Platelet Estimate Normal
[2021-05-12] MEDS: CYPROHEPTADINE 4 MG TABLET PO SCH ×3 (09:35→21:42)
[2021-05-12] MEDS: RIFABUTIN 150 MG CAPSULE PO SCH (09:35)
[2021-05-12] MEDS: MEGESTROL 400 MG/10 ML UDCUP PO SCH ×2 (09:35→21:42)
[2021-05-12] MEDS: lisinopriL 10 MG TABLET PO SCH (09:35)
[2021-05-12] MEDS: FLUCONAZOLE 200 MG TABLET PO SCH (09:35)
[2021-05-12] MEDS: MAGNESIUM OXIDE 400 MG TABLET PO SCH (09:35)
[2021-05-12] MEDS: ENOXAPARIN 40 MG/0.4 ML SYRINGE SUBCUT SCH (21:42)
[2021-05-13] MEDS: MAGNESIUM OXIDE 400 MG TABLET PO SCH (08:47)
[2021-05-13] MEDS: MEGESTROL 400 MG/10 ML UDCUP PO SCH ×2 (08:47→21:27)
[2021-05-13] MEDS: RIFABUTIN 150 MG CAPSULE PO SCH (08:47)
[2021-05-13] MEDS: CYPROHEPTADINE 4 MG TABLET PO SCH ×3 (08:47→21:27)
[2021-05-13] MEDS: FLUCONAZOLE 200 MG TABLET PO SCH (08:47)
[2021-05-13] MEDS: lisinopriL 10 MG TABLET PO SCH (08:53)
[2021-05-13] MEDS: ENOXAPARIN 40 MG/0.4 ML SYRINGE SUBCUT SCH (21:29)
[2021-05-14] MEDS: CYPROHEPTADINE 4 MG TABLET PO SCH ×3 (10:16→21:10)
[2021-05-14] MEDS: RIFABUTIN 150 MG CAPSULE PO SCH (10:16)
[2021-05-14] MEDS: lisinopriL 10 MG TABLET PO SCH (10:16)
[2021-05-14] MEDS: FLUCONAZOLE 200 MG TABLET PO SCH (10:16)
[2021-05-14] MEDS: MEGESTROL 400 MG/10 ML UDCUP PO SCH ×2 (10:16→21:10)
[2021-05-14] MEDS: MAGNESIUM OXIDE 400 MG TABLET PO SCH (10:16)
[2021-05-14] MEDS: SULFAMETHOX/TRIMETHOPRIM 800-160 MG TABLET PO SCH (10:16)
[2021-05-14] MEDS: ENOXAPARIN 40 MG/0.4 ML SYRINGE SUBCUT SCH (21:10)
[2021-05-15] MEDS: SODIUM CHLORIDE 0.9% 1,000 ML IV SCH (07:12)
[2021-05-15] MEDS: FLUCONAZOLE 200 MG TABLET PO SCH (09:29)
[2021-05-15] MEDS: MEGESTROL 400 MG/10 ML UDCUP PO SCH ×2 (09:29→21:12)
[2021-05-15] MEDS: MAGNESIUM OXIDE 400 MG TABLET PO SCH (09:30)
[2021-05-15] MEDS: lisinopriL 10 MG TABLET PO SCH (09:30)
[2021-05-15] MEDS: RIFABUTIN 150 MG CAPSULE PO SCH (09:30)
[2021-05-15] MEDS: CYPROHEPTADINE 4 MG TABLET PO SCH ×3 (09:30→21:12)
[2021-05-15] MEDS: ENOXAPARIN 40 MG/0.4 ML SYRINGE SUBCUT SCH (21:12)
[2021-05-16] MEDS: CYPROHEPTADINE 4 MG TABLET PO SCH ×3 (09:33→20:25)
[2021-05-16] MEDS: SULFAMETHOX/TRIMETHOPRIM 800-160 MG TABLET PO SCH (09:33)
[2021-05-16] MEDS: FLUCONAZOLE 200 MG TABLET PO SCH (09:33)
[2021-05-16] MEDS: RIFABUTIN 150 MG CAPSULE PO SCH (09:33)
[2021-05-16] MEDS: MEGESTROL 400 MG/10 ML UDCUP PO SCH ×2 (09:34→20:25)
[2021-05-16] MEDS: lisinopriL 10 MG TABLET PO SCH (09:34)
[2021-05-16] MEDS: MAGNESIUM OXIDE 400 MG TABLET PO SCH (09:34)
[2021-05-16] MEDS: ENOXAPARIN 40 MG/0.4 ML SYRINGE SUBCUT SCH (20:25)
[2021-05-17] MEDS: CYPROHEPTADINE 4 MG TABLET PO SCH ×3 (08:49→20:46)
[2021-05-17] MEDS: MEGESTROL 400 MG/10 ML UDCUP PO SCH ×2 (08:50→20:46)
[2021-05-17] MEDS: RIFABUTIN 150 MG CAPSULE PO SCH (08:50)
[2021-05-17] MEDS: MAGNESIUM OXIDE 400 MG TABLET PO SCH (08:50)
[2021-05-17] MEDS: lisinopriL 10 MG TABLET PO SCH (08:50)
[2021-05-17] MEDS: FLUCONAZOLE 200 MG TABLET PO SCH (08:50)
[2021-05-17 12:41] LABS: QuantiFERON-Tb Gold Pl Negative (Negative); TB2 Ag Minus Result 0 IU/mL
[2021-05-17] MEDS: ENOXAPARIN 40 MG/0.4 ML SYRINGE SUBCUT SCH (20:49)
[2021-05-18] MEDS: lisinopriL 10 MG TABLET PO SCH (09:47)
[2021-05-18] MEDS: MEGESTROL 400 MG/10 ML UDCUP PO SCH ×2 (09:47→20:59)
[2021-05-18] MEDS: FLUCONAZOLE 200 MG TABLET PO SCH (09:47)
[2021-05-18] MEDS: SULFAMETHOX/TRIMETHOPRIM 800-160 MG TABLET PO SCH (09:47)
[2021-05-18] MEDS: RIFABUTIN 150 MG CAPSULE PO SCH (09:47)
[2021-05-18] MEDS: CYPROHEPTADINE 4 MG TABLET PO SCH ×3 (09:47→20:59)
[2021-05-18] MEDS: MAGNESIUM OXIDE 400 MG TABLET PO SCH (09:52)
[2021-05-18] MEDS: ENOXAPARIN 40 MG/0.4 ML SYRINGE SUBCUT SCH (20:59)
[2021-05-19 05:59] LABS: Basophils % 0.6 % (0.0-0.8); Eosinophils # 0.1 10*3/uL (0.0-0.87); Eosinophils % 3.9 % (0.00-10.9); Hematocrit 33.2 VOL% (42.0-52.0); Hemoglobin 10.9 GM/DL (14.0-18.0); Immature Granulocytes % 2.8 %; Lymphocytes # 0.4 10*3/uL (1.4-4.0); Lymphocytes % 12.3 % (21.2-54.2); Mean Corpuscular HGB Conc 32.8 GM/DL (32-36); Mean Corpuscular Volume 103.8 FL (87-102); Mean Platelet Volume 10.6 FL (9.6-12.0); Monocytes % 13.4 % (1.7-12.7); Platelet Count 183 T/CUMM (130-400); Red Cell Distribution Width 16.7 % (9.3-17.3); White Blood Count 3.6 T/CUMM (4-12)
[2021-05-19 06:30] LABS: Calcium 9.6 MG/DL (8.5-10.1); Osmolality,Calculated 269.9 MOS/KG (273-304); Potassium 5.3 MMOL/L (3.5-5.1)
[2021-05-19] MEDS: MEGESTROL 400 MG/10 ML UDCUP PO SCH ×2 (08:53→21:13)
[2021-05-19] MEDS: RIFABUTIN 150 MG CAPSULE PO SCH (08:53)
[2021-05-19] MEDS: FLUCONAZOLE 200 MG TABLET PO SCH (08:53)
[2021-05-19] MEDS: CITALOPRAM 20 MG TABLET PO SCH (08:53)
[2021-05-19] MEDS: MAGNESIUM OXIDE 400 MG TABLET PO SCH (08:53)
[2021-05-19] MEDS: CYPROHEPTADINE 4 MG TABLET PO SCH ×3 (08:53→21:14)
[2021-05-19] MEDS ORDERED: SODIUM CHLORIDE 0.9% 1,000 ML IV SCH (09:30)
[2021-05-19] MEDS: SODIUM BICARBONATE 650 MG TABLET PO SCH ×2 (10:40→21:13)
[2021-05-19] MEDS: ENOXAPARIN 40 MG/0.4 ML SYRINGE SUBCUT SCH (21:13)
[2021-05-20 07:25] LABS: Calcium 8.5 MG/DL (8.5-10.1); Osmolality,Calculated 270.8 MOS/KG (273-304); Potassium 5.2 MMOL/L (3.5-5.1)
[2021-05-20] MEDS: RIFABUTIN 150 MG CAPSULE PO SCH (09:08)
[2021-05-20] MEDS: MAGNESIUM OXIDE 400 MG TABLET PO SCH (09:08)
[2021-05-20] MEDS: FLUCONAZOLE 200 MG TABLET PO SCH (09:08)
[2021-05-20] MEDS: SODIUM BICARBONATE 650 MG TABLET PO SCH ×2 (09:08→21:53)
[2021-05-20] MEDS: CYPROHEPTADINE 4 MG TABLET PO SCH ×3 (09:08→21:53)
[2021-05-20] MEDS: MEGESTROL 400 MG/10 ML UDCUP PO SCH ×2 (09:08→21:52)
[2021-05-20] MEDS: CITALOPRAM 20 MG TABLET PO SCH (09:11)
[2021-05-20] MEDS: ENOXAPARIN 40 MG/0.4 ML SYRINGE SUBCUT SCH (21:53)
[2021-05-21 05:51] LABS: Calcium 9.2 MG/DL (8.5-10.1); Osmolality,Calculated 266.9 MOS/KG (273-304); Potassium 4.8 MMOL/L (3.5-5.1)
[2021-05-21] MEDS: MEGESTROL 400 MG/10 ML UDCUP PO SCH ×2 (09:03→20:54)
[2021-05-21] MEDS: CYPROHEPTADINE 4 MG TABLET PO SCH ×3 (09:03→20:54)
[2021-05-21] MEDS: CITALOPRAM 20 MG TABLET PO SCH (09:03)
[2021-05-21] MEDS: SODIUM BICARBONATE 650 MG TABLET PO SCH ×2 (09:03→20:54)
[2021-05-21] MEDS: RIFABUTIN 150 MG CAPSULE PO SCH (09:03)
[2021-05-21] MEDS: FLUCONAZOLE 200 MG TABLET PO SCH (09:04)
[2021-05-21] MEDS: MAGNESIUM OXIDE 400 MG TABLET PO SCH (09:04)
[2021-05-21] MEDS: SULFAMETHOX/TRIMETHOPRIM 800-160 MG TABLET PO SCH (09:04)
[2021-05-21] MEDS ORDERED: MAGNESIUM SULF RIDER 2 GM/50 ML PREMIX IV ONE (15:00)
[2021-05-21] MEDS: ENOXAPARIN 40 MG/0.4 ML SYRINGE SUBCUT SCH (20:54)
[2021-05-22 05:12] LABS: Basophils % 0.6 % (0.0-0.8); Eosinophils # 0.2 10*3/uL (0.0-0.87); Eosinophils % 5.4 % (0.00-10.9); Hematocrit 35.1 VOL% (42.0-52.0); Hemoglobin 11.8 GM/DL (14.0-18.0); Immature Granulocytes % 2.8 %; Lymphocytes # 0.5 10*3/uL (1.4-4.0); Lymphocytes % 12.7 % (21.2-54.2); Mean Corpuscular HGB Conc 33.6 GM/DL (32-36); Mean Corpuscular Volume 102.3 FL (87-102); Mean Platelet Volume 10.3 FL (9.6-12.0); Monocytes % 15.8 % (1.7-12.7); Neutrophils % 62.7 % (38.7-73.9); Platelet Count 224 T/CUMM (130-400); Red Blood Count 3.43 MC/CUMM (3.8-5.5); White Blood Count 3.5 T/CUMM (4-12)
[2021-05-22 05:27] LABS: Calcium 8.5 MG/DL (8.5-10.1); Osmolality,Calculated 268.8 MOS/KG (273-304); Potassium 4.6 MMOL/L (3.5-5.1)
[2021-05-22 05:44] LABS: Eosinophils 11 % (0-10); Hypochromia Slight; Lymphocytes 11 % (20-55); Microcytosis Slight; Platelet Estimate Adequate; Segmented Neutrophils 67 % (50-85); Total Cells Counted 100
[2021-05-22] MEDS: MAGNESIUM OXIDE 400 MG TABLET PO SCH (08:18)
[2021-05-22] MEDS: CITALOPRAM 20 MG TABLET PO SCH (08:18)
[2021-05-22] MEDS: CYPROHEPTADINE 4 MG TABLET PO SCH ×3 (08:18→20:54)
[2021-05-22] MEDS: RIFABUTIN 150 MG CAPSULE PO SCH (08:18)
[2021-05-22] MEDS: SODIUM BICARBONATE 650 MG TABLET PO SCH ×2 (08:18→20:54)
[2021-05-22] MEDS: FLUCONAZOLE 200 MG TABLET PO SCH (08:19)
[2021-05-22] MEDS: MEGESTROL 400 MG/10 ML UDCUP PO SCH ×2 (08:19→20:55)
[2021-05-22 15:07] LABS: % Iron Saturation 40.5 % (18-50)
[2021-05-22 15:14] LABS: Folate 14.15 NG/ML (5.38-24.0)
[2021-05-22] MEDS: ENOXAPARIN 40 MG/0.4 ML SYRINGE SUBCUT SCH (20:55)
[2021-05-23] MEDS: MEGESTROL 400 MG/10 ML UDCUP PO SCH ×2 (10:11→20:31)
[2021-05-23] MEDS: SULFAMETHOX/TRIMETHOPRIM 800-160 MG TABLET PO SCH (10:11)
[2021-05-23] MEDS: RIFABUTIN 150 MG CAPSULE PO SCH (10:11)
[2021-05-23] MEDS: CYPROHEPTADINE 4 MG TABLET PO SCH ×3 (10:11→20:31)
[2021-05-23] MEDS: CITALOPRAM 20 MG TABLET PO SCH (10:12)
[2021-05-23] MEDS: MAGNESIUM OXIDE 400 MG TABLET PO SCH (10:13)
[2021-05-23] MEDS: FLUCONAZOLE 200 MG TABLET PO SCH (10:13)
[2021-05-23] MEDS: SODIUM BICARBONATE 650 MG TABLET PO SCH ×2 (10:13→20:31)
[2021-05-23] MEDS: ENOXAPARIN 40 MG/0.4 ML SYRINGE SUBCUT SCH (20:30)
[2021-05-24] MEDS: SODIUM BICARBONATE 650 MG TABLET PO SCH ×2 (10:00→20:44)
[2021-05-24] MEDS: RIFABUTIN 150 MG CAPSULE PO SCH (10:00)
[2021-05-24] MEDS: FLUCONAZOLE 200 MG TABLET PO SCH (10:01)
[2021-05-24] MEDS: MAGNESIUM OXIDE 400 MG TABLET PO SCH (10:01)
[2021-05-24] MEDS: CYPROHEPTADINE 4 MG TABLET PO SCH ×3 (10:01→20:44)
[2021-05-24] MEDS: MEGESTROL 400 MG/10 ML UDCUP PO SCH ×2 (10:02→20:44)
[2021-05-24] MEDS: CITALOPRAM 20 MG TABLET PO SCH (10:02)
[2021-05-24] MEDS: ENOXAPARIN 40 MG/0.4 ML SYRINGE SUBCUT SCH (20:44)
[2021-05-25] MEDS: CYPROHEPTADINE 4 MG TABLET PO SCH (09:19)
[2021-05-25] MEDS: SODIUM BICARBONATE 650 MG TABLET PO SCH (09:19)
[2021-05-25] MEDS: FLUCONAZOLE 200 MG TABLET PO SCH (09:20)
[2021-05-25] MEDS: RIFABUTIN 150 MG CAPSULE PO SCH (09:20)
[2021-05-25] MEDS: SULFAMETHOX/TRIMETHOPRIM 800-160 MG TABLET PO SCH (09:20)
[2021-05-25] MEDS: CITALOPRAM 20 MG TABLET PO SCH (09:20)
[2021-05-25] MEDS: MAGNESIUM OXIDE 400 MG TABLET PO SCH (09:20)
[2021-05-25] MEDS: MEGESTROL 400 MG/10 ML UDCUP PO SCH (09:21)
[2021-05-25 11:29] VITALS: BP 132/88
== END 2021-05-25 12:49 | DRG 890 ==
LOC: N.ED 12:21 → N.EDINP 18:11 → SUATTDRO 18:11 → N.2W 19:35 → N.2E 03-07 11:58 → N.TELES 04-04 17:26 → N.5E 04-17 17:52
PROVIDERS: ADMIT Internal Medicine; ATTEND Internal Medicine

== ENCOUNTER 2021-10-08 09:51 | Inpatient (IN) ==
[2021-10-08] MEDS ORDERED: SODIUM CHLORIDE 0.9% 1,000 ML IV STA ×2 (10:41→11:18)
[2021-10-08 11:14] LABS: Albumin 2.6 G/DL (3.4-5.0); Bilirubin,Total 0.4 MG/DL (0.20-1.00); Osmolality,Calculated 269.1 MOS/KG (273-304); Potassium 4.9 MMOL/L (3.5-5.1)
[2021-10-08 11:16] LABS: Calcium 14.1 MG/DL (8.5-10.1)
[2021-10-08 11:39] LABS: Basophils # 0.1 10*3/uL (0.0-0.2); Basophils % 0.5 % (0.0-0.8); Eosinophils # 0.2 10*3/uL (0.0-0.87); Eosinophils % 2.1 % (0.00-10.9); Hematocrit 40.8 VOL% (42.0-52.0); Hemoglobin 13.7 GM/DL (14.0-18.0); Immature Granulocytes % 3.5 %; Immature Granulocytes Absolute 0.36 #; Lymphocytes # 1.3 10*3/uL (1.4-4.0); Lymphocytes % 13.1 % (21.2-54.2); Mean Corpuscular HGB Conc 33.6 GM/DL (32-36); Mean Corpuscular Volume 99.5 FL (87-102); Mean Platelet Volume 9.9 FL (9.6-12.0); Monocytes # 0.4 10*3/uL (0.11-0.8); Monocytes % 3.6 % (1.7-12.7); Neutrophils % 77.2 % (38.7-73.9); Platelet Count 223 T/CUMM (130-400); Red Cell Distribution Width 14.5 % (9.3-17.3); White Blood Count 10.2 T/CUMM (4-12)
[2021-10-08 11:49] LABS: INR 1.1; PT Patient Result 12.4 SECS (10.5-12.0); Partial Thromboplastin Time 36.6 SECS (23.7-32.9)
[2021-10-08] MEDS ORDERED: ONDANSETRON 4 MG/2 ML VIAL IV PRN (13:06)
[2021-10-08] MEDS ORDERED: GLUCAGON 1 MG VIAL IM PRN (13:06)
[2021-10-08] MEDS ORDERED: DOCUSATE SODIUM 100 MG CAPSULE PO PRN (13:06)
[2021-10-08] MEDS ORDERED: ACETAMINOPHEN 325 MG TABLET PO PRN (13:06)
[2021-10-08] MEDS ORDERED: DEXTROSE 10% 250 ML BAG IV PRN (13:50)
[2021-10-08 13:58] LABS: Thyroid Stimulating Hormone 6.54 uIU/ml (0.358-3.74)
[2021-10-08] MEDS: SODIUM BICARB INJ 50 MEQ in DEXTROSE 5% NACL 0.45% 1,000 ML IV SCH (16:30)
[2021-10-08] MEDS: CYPROHEPTADINE 4 MG TABLET PO SCH ×2 (16:31→20:36)
[2021-10-08] MEDS: SULFAMETH IV SCH (16:42)
[2021-10-08] MEDS: DEXTROSE 5% IV SCH (16:42)
[2021-10-08] MEDS: TRIMETH IV SCH (16:42)
[2021-10-08] MEDS: FLUCONAZOLE INJ 400 MG/200 ML PREMIX IV SCH (18:23)
[2021-10-08] MEDS: HEPARIN 5,000 UNIT/1 ML VIAL SUBCUT SCH (20:37)
[2021-10-09] MEDS: TRIMETH IV SCH ×2 (03:47→15:31)
[2021-10-09] MEDS: DEXTROSE 5% IV SCH ×2 (03:47→15:31)
[2021-10-09] MEDS: SULFAMETH IV SCH ×2 (03:47→15:31)
[2021-10-09] MEDS: SODIUM BICARB INJ 50 MEQ in DEXTROSE 5% NACL 0.45% 1,000 ML IV SCH ×2 (03:47→16:02)
[2021-10-09 05:27] LABS: Basophils % 0.5 % (0.0-0.8); Hematocrit 32.1 VOL% (42.0-52.0); Hemoglobin 11.1 GM/DL (14.0-18.0); Immature Granulocytes Absolute 0.23 #; Lymphocytes # 0.9 10*3/uL (1.4-4.0); Lymphocytes % 12.5 % (21.2-54.2); Mean Corpuscular HGB Conc 34.6 GM/DL (32-36); Mean Corpuscular Volume 98.5 FL (87-102); Mean Platelet Volume 10.8 FL (9.6-12.0); Monocytes # 0.3 10*3/uL (0.11-0.8); Monocytes % 3.3 % (1.7-12.7); Neutrophils % 80.7 % (38.7-73.9); Platelet Count 211 T/CUMM (130-400); Red Blood Count 3.26 MC/CUMM (3.8-5.5); Red Cell Distribution Width 14.2 % (9.3-17.3); White Blood Count 7.6 T/CUMM (4-12)
[2021-10-09 05:41] LABS: Calcium 13.1 MG/DL (8.5-10.1); Osmolality,Calculated 269.9 MOS/KG (273-304); Potassium 3.7 MMOL/L (3.5-5.1)
[2021-10-09] MEDS: CYPROHEPTADINE 4 MG TABLET PO SCH ×3 (08:37→21:07)
[2021-10-09] MEDS: RIFABUTIN 150 MG CAPSULE PO SCH (08:37)
[2021-10-09] MEDS: HEPARIN 5,000 UNIT/1 ML VIAL SUBCUT SCH ×2 (08:37→21:07)
[2021-10-09] MEDS: NON-FORMULARY MEDICATION (Bictegrav-Emtricit-Tenofov Ala [Biktarvy] 50-200-25 mg Tablet) PO SCH (08:40)
[2021-10-09] MEDS: SODIUM BICARB INJ 50 MEQ in SODIUM CHLORIDE 0.45% 1,000 ML IV SCH (17:08)
[2021-10-09] MEDS: FLUCONAZOLE INJ 400 MG/200 ML PREMIX IV SCH (17:43)
[2021-10-09 23:41] LABS: % CD4 (T Cells) 4 % (32-64); % CD8 (T Cells) 49 % (11-40); 4/8 Ratio 0.1 (>=0.9)
[2021-10-10] MEDS: DEXTROSE 5% IV SCH ×2 (02:53→14:57)
[2021-10-10] MEDS: SULFAMETH IV SCH ×2 (02:53→14:57)
[2021-10-10] MEDS: TRIMETH IV SCH ×2 (02:53→14:57)
[2021-10-10 05:05] LABS: Basophils % 0.5 % (0.0-0.8); Hematocrit 30.9 VOL% (42.0-52.0); Hemoglobin 10.7 GM/DL (14.0-18.0); Immature Granulocytes Absolute 0.18 #; Lymphocytes % 16.1 % (21.2-54.2); Mean Corpuscular HGB Conc 34.6 GM/DL (32-36); Mean Platelet Volume 10.2 FL (9.6-12.0); Monocytes # 0.4 10*3/uL (0.11-0.8); Monocytes % 5.9 % (1.7-12.7); Neutrophils % 74.5 % (38.7-73.9); Platelet Count 191 T/CUMM (130-400); Red Blood Count 3.12 MC/CUMM (3.8-5.5); Red Cell Distribution Width 14.2 % (9.3-17.3)
[2021-10-10 05:24] LABS: Calcium 13.2 MG/DL (8.5-10.1); Osmolality,Calculated 263.1 MOS/KG (273-304)
[2021-10-10] MEDS: NON-FORMULARY MEDICATION (Bictegrav-Emtricit-Tenofov Ala [Biktarvy] 50-200-25 mg Tablet) PO SCH (08:56)
[2021-10-10] MEDS: CYPROHEPTADINE 4 MG TABLET PO SCH (08:57)
[2021-10-10] MEDS: RIFABUTIN 150 MG CAPSULE PO SCH (08:57)
[2021-10-10] MEDS: HEPARIN 5,000 UNIT/1 ML VIAL SUBCUT SCH ×2 (08:57→20:03)
[2021-10-10] MEDS ORDERED: POTASSIUM CHLORIDE 20 MEQ TABLET PO ONE (17:00)
[2021-10-10] MEDS: SODIUM BICARB INJ 50 MEQ in SODIUM CHLORIDE 0.45% 1,000 ML IV SCH (17:11)
[2021-10-10] MEDS: FLUCONAZOLE INJ 400 MG/200 ML PREMIX IV SCH (18:24)
[2021-10-11] MEDS: TRIMETH IV SCH ×2 (02:47→15:42)
[2021-10-11] MEDS: SULFAMETH IV SCH ×2 (02:47→15:42)
[2021-10-11] MEDS: DEXTROSE 5% IV SCH ×2 (02:47→15:42)
[2021-10-11] MEDS: SODIUM BICARB INJ 50 MEQ in SODIUM CHLORIDE 0.45% 1,000 ML IV SCH ×2 (05:26→05:52)
[2021-10-11 06:10] LABS: Basophils % 0.5 % (0.0-0.8); Eosinophils % 0.2 % (0.00-10.9); Hemoglobin 10.2 GM/DL (14.0-18.0); Immature Granulocytes % 3.1 %; Immature Granulocytes Absolute 0.19 #; Lymphocytes % 16.1 % (21.2-54.2); Mean Corpuscular Volume 98.7 FL (87-102); Mean Platelet Volume 9.9 FL (9.6-12.0); Monocytes # 0.4 10*3/uL (0.11-0.8); Monocytes % 7.1 % (1.7-12.7); Platelet Count 191 T/CUMM (130-400); Red Blood Count 3.04 MC/CUMM (3.8-5.5); Red Cell Distribution Width 13.9 % (9.3-17.3); White Blood Count 6.2 T/CUMM (4-12)
[2021-10-11 06:34] LABS: Calcium 11.9 MG/DL (8.5-10.1); Osmolality,Calculated 267.7 MOS/KG (273-304); Potassium 3.7 MMOL/L (3.5-5.1)
[2021-10-11] MEDS: NON-FORMULARY MEDICATION (Bictegrav-Emtricit-Tenofov Ala [Biktarvy] 50-200-25 mg Tablet) PO SCH (08:26)
[2021-10-11] MEDS: HEPARIN 5,000 UNIT/1 ML VIAL SUBCUT SCH (08:33)
[2021-10-11] MEDS: RIFABUTIN 150 MG CAPSULE PO SCH (08:33)
[2021-10-11] MEDS: ZINC OXIDE PASTE 113 GM TUBE TOP SCH ×2 (15:42→20:44)
[2021-10-11 16:54] LABS: Mucus,Urine Occasional /LPF (Occasional); RBC,Urine 2 /HPF (0-4)
[2021-10-11 16:56] LABS: Urine Appearance Clear (Clear); Urine Color Yellow (Yellow)
[2021-10-11 16:57] LABS: Bilirubin,Urine Negative (Negative); Blood, Urine Negative (Negative); Glucose,Urine (UA) Negative (Negative); Ketones,Urine Negative (Negative); Nitrite,Urine Negative (Negative); Protein,Urine Negative (Negative); Urine Specific Gravity 1.015 (1.001-1.035); Urine Urobilinogen 0.2 eU/dL (<2.0); Urine pH 7.5 (4.5-8.0)
[2021-10-11] MEDS: FLUCONAZOLE INJ 400 MG/200 ML PREMIX IV SCH (17:51)
[2021-10-11 18:32] LABS: Barbiturates Screen,Urine Negative (Negative); Benzodiazepines Screen,Urine Negative (Negative); Cannabinoid Screen,Urine Negative (Negative); Opiate Screen,Urine Negative (Negative); Phencyclidine Screen,Urine Negative (Negative)
[2021-10-12] MEDS: SULFAMETH IV SCH (02:54)
[2021-10-12] MEDS: TRIMETH IV SCH (02:54)
[2021-10-12] MEDS: DEXTROSE 5% IV SCH ×2 (02:54→14:57)
[2021-10-12] MEDS: SODIUM BICARB INJ 50 MEQ in SODIUM CHLORIDE 0.45% 1,000 ML IV SCH ×2 (02:57→03:19)
[2021-10-12 09:09] LABS: Calcium 11.6 MG/DL (8.5-10.1); Osmolality,Calculated 265.5 MOS/KG (273-304); Potassium 3.3 MMOL/L (3.5-5.1)
[2021-10-12] MEDS: ZINC OXIDE PASTE 113 GM TUBE TOP SCH ×2 (10:33→20:23)
[2021-10-12] MEDS: RIFABUTIN 150 MG CAPSULE PO SCH (10:33)
[2021-10-12] MEDS: NON-FORMULARY MEDICATION (Bictegrav-Emtricit-Tenofov Ala [Biktarvy] 50-200-25 mg Tablet) PO SCH (10:35)
[2021-10-12 10:42] LABS: Appearance,CSF Clear; Lymphocytes,CSF 63 %; Monocytes,CSF 37 %; Red Blood Cell,CSF 9 C/CUMM; White Blood Cell,CSF 9 C/CUMM
[2021-10-12] MEDS ORDERED: SODIUM CHLORIDE 0.9% 1,000 ML IV SCH (11:00)
[2021-10-12 12:04] LABS: Glucose,CSF 34 MG/DL (40-70)
[2021-10-12] MEDS: SODIUM CHLORIDE 0.9% 500 ML IV SCH (12:37)
[2021-10-12 13:36] LABS: Kappa Free Light Chain 7.07 mg/dL; Lambda Free Light Chain 7.27 mg/dL
[2021-10-12] MEDS: FLUCYTOSINE 500 MG CAPSULE PO SCH ×2 (14:54→20:22)
[2021-10-12] MEDS: AMPHOTERICIN B LIPOSOMAL IV SCH (14:57)
[2021-10-12] MEDS: SODIUM CHLOR 0.9% KCL 20 MEQ 20 MEQ/1,000 ML BAG IV SCH (18:10)
[2021-10-13] MEDS: FLUCYTOSINE 500 MG CAPSULE PO SCH ×4 (03:12→21:43)
[2021-10-13 06:14] LABS: Calcium 11.1 MG/DL (8.5-10.1); Osmolality,Calculated 261.8 MOS/KG (273-304); Potassium 3.6 MMOL/L (3.5-5.1)
[2021-10-13] MEDS ORDERED: MAGNESIUM SULF RIDER 4 GM/100 ML PREMIX IV ONE (07:49)
[2021-10-13] MEDS: RIFABUTIN 150 MG CAPSULE PO SCH (08:59)
[2021-10-13] MEDS: ZINC OXIDE PASTE 113 GM TUBE TOP SCH ×2 (09:00→21:44)
[2021-10-13] MEDS: SODIUM CHLOR 0.9% KCL 20 MEQ 20 MEQ/1,000 ML BAG IV SCH (09:03)
[2021-10-13] MEDS: SODIUM CHLORIDE 0.9% 500 ML IV SCH (12:28)
[2021-10-13] MEDS: DEXTROSE 5% IV SCH (14:09)
[2021-10-13] MEDS: AMPHOTERICIN B LIPOSOMAL IV SCH (14:09)
[2021-10-14] MEDS: SODIUM CHLOR 0.9% KCL 20 MEQ 20 MEQ/1,000 ML BAG IV SCH ×2 (01:30→12:48)
[2021-10-14] MEDS: FLUCYTOSINE 500 MG CAPSULE PO SCH ×4 (03:49→21:24)
[2021-10-14 05:26] LABS: Basophils # 0.1 10*3/uL (0.0-0.2); Basophils % 0.7 % (0.0-0.8); Eosinophils # 0.5 10*3/uL (0.0-0.87); Eosinophils % 5.8 % (0.00-10.9); Hematocrit 30.1 VOL% (42.0-52.0); Hemoglobin 10.1 GM/DL (14.0-18.0); Immature Granulocytes % 4.9 %; Lymphocytes # 1.2 10*3/uL (1.4-4.0); Lymphocytes % 14.9 % (21.2-54.2); Mean Corpuscular HGB Conc 33.6 GM/DL (32-36); Mean Corpuscular Volume 100.7 FL (87-102); Mean Platelet Volume 9.9 FL (9.6-12.0); Monocytes # 0.6 10*3/uL (0.11-0.8); Monocytes % 6.9 % (1.7-12.7); Neutrophils % 66.8 % (38.7-73.9); Platelet Count 209 T/CUMM (130-400); Red Blood Count 2.99 MC/CUMM (3.8-5.5); Red Cell Distribution Width 13.5 % (9.3-17.3); White Blood Count 8.1 T/CUMM (4-12)
[2021-10-14 05:39] LABS: Alanine Aminotransferase 17 U/L (16-61); Albumin 2.1 G/DL (3.4-5.0); Alkaline Phosphatase 91 U/L (45-117); Aspartate Amino Transferase 11 U/L (0-37); Bilirubin,Total < 0.39 MG/DL (0.20-1.00); Blood Urea Nitrogen 20 MG/DL (7-18); Calcium 11.3 MG/DL (8.5-10.1); Carbon Dioxide 18 MMOL/L (21-32); Chloride 104 MMOL/L (98-107); Glucose 89 MG/DL (74-106); Osmolality,Calculated 265.5 MOS/KG (273-304); Potassium 3.4 MMOL/L (3.5-5.1); Sodium 132 MMOL/L (136-145)
[2021-10-14 05:43] LABS: Calcium 11.2 MG/DL (8.5-10.1); Osmolality,Calculated 262.8 MOS/KG (273-304); Potassium 3.4 MMOL/L (3.5-5.1)
[2021-10-14] MEDS: RIFABUTIN 150 MG CAPSULE PO SCH (09:40)
[2021-10-14] MEDS: ZINC OXIDE PASTE 113 GM TUBE TOP SCH ×2 (10:35→21:24)
[2021-10-14 11:15] LABS: CSF Crypto neoforman/gatti PCR Negative (Negative); CSF Cytomegalovirus PCR Negative (Negative); CSF Enterovirus PCR Negative (Negative); CSF Escherichia coli K1 PCR Negative (Negative); CSF Haemophilus influenzae PCR Negative (Negative); CSF Herpes Simplex Virus 1 PCR Negative (Negative); CSF Herpes Simplex Virus 2 PCR Negative (Negative); CSF Human Herpes Virus 6 PCR Negative (Negative); CSF Human Parechovirus PCR Negative (Negative); CSF Listeria monocytogenes PCR Negative (Negative); CSF Neisseria meningitidis PCR Negative (Negative); CSF Streptococcus agalacti PCR Negative (Negative); CSF Streptococcus pneumon PCR Negative (Negative); CSF Varicella Zoster Virus PCR Negative (Negative); Specimen source CEREBROSPINAL FLUID
[2021-10-14] MEDS: SODIUM CHLORIDE 0.9% 500 ML IV SCH (12:49)
[2021-10-14] MEDS: DEXTROSE 5% IV SCH (14:51)
[2021-10-14] MEDS: AMPHOTERICIN B LIPOSOMAL IV SCH (14:51)
[2021-10-15] MEDS: FLUCYTOSINE 500 MG CAPSULE PO SCH ×4 (03:53→20:35)
[2021-10-15 06:06] LABS: Calcium 11.1 MG/DL (8.5-10.1); Potassium 3.4 MMOL/L (3.5-5.1)
[2021-10-15] MEDS: SODIUM CHLOR 0.9% KCL 20 MEQ 20 MEQ/1,000 ML BAG IV SCH ×3 (06:30→21:15)
[2021-10-15] MEDS: RIFABUTIN 150 MG CAPSULE PO SCH (09:05)
[2021-10-15] MEDS: ZINC OXIDE PASTE 113 GM TUBE TOP SCH ×2 (09:06→21:53)
[2021-10-15] MEDS: SODIUM CHLORIDE 0.9% 500 ML IV SCH (11:35)
[2021-10-15] MEDS: DEXTROSE 5% IV SCH (14:35)
[2021-10-15] MEDS: AMPHOTERICIN B LIPOSOMAL IV SCH (14:35)
[2021-10-15] MEDS: MEGESTROL 400 MG/10 ML UDCUP PO SCH (21:14)
[2021-10-16] MEDS: FLUCYTOSINE 500 MG CAPSULE PO SCH ×4 (02:02→21:43)
[2021-10-16 05:14] LABS: Albumin 2.2 G/DL (3.4-5.0); Osmolality,Calculated 274.8 MOS/KG (273-304); Potassium 3.6 MMOL/L (3.5-5.1)
[2021-10-16] MEDS: ASCORBIC ACID 500 MG TABLET PO SCH (09:26)
[2021-10-16] MEDS: MEGESTROL 400 MG/10 ML UDCUP PO SCH ×2 (09:26→21:43)
[2021-10-16] MEDS: CITALOPRAM 20 MG TABLET PO SCH (09:26)
[2021-10-16] MEDS: ZINC SULFATE 220 MG CAPSULE PO SCH (09:26)
[2021-10-16] MEDS: MULTIVITAMIN (CENTRUM) TABLET PO SCH (09:27)
[2021-10-16] MEDS: RIFABUTIN 150 MG CAPSULE PO SCH (09:27)
[2021-10-16] MEDS: ZINC OXIDE PASTE 113 GM TUBE TOP SCH ×2 (09:29→21:43)
[2021-10-16] MEDS: SODIUM CHLOR 0.9% KCL 20 MEQ 20 MEQ/1,000 ML BAG IV SCH (10:05)
[2021-10-16] MEDS: SODIUM CHLORIDE 0.9% 500 ML IV SCH (12:00)
[2021-10-16] MEDS: DEXTROSE 5% IV SCH (16:16)
[2021-10-16] MEDS: AMPHOTERICIN B LIPOSOMAL IV SCH (16:16)
[2021-10-17] MEDS: FLUCYTOSINE 500 MG CAPSULE PO SCH ×4 (03:57→21:33)
[2021-10-17] MEDS: MEGESTROL 400 MG/10 ML UDCUP PO SCH ×2 (09:17→21:33)
[2021-10-17] MEDS: ZINC SULFATE 220 MG CAPSULE PO SCH (09:17)
[2021-10-17] MEDS: MULTIVITAMIN (CENTRUM) TABLET PO SCH (09:17)
[2021-10-17] MEDS: ASCORBIC ACID 500 MG TABLET PO SCH (09:17)
[2021-10-17] MEDS: RIFABUTIN 150 MG CAPSULE PO SCH (09:17)
[2021-10-17] MEDS: CITALOPRAM 20 MG TABLET PO SCH (09:17)
[2021-10-17] MEDS: ZINC OXIDE PASTE 113 GM TUBE TOP SCH ×2 (09:18→21:35)
[2021-10-17] MEDS: SODIUM CHLOR 0.9% KCL 20 MEQ 20 MEQ/1,000 ML BAG IV SCH (09:18)
[2021-10-17 09:32] LABS: Albumin 2.2 G/DL (3.4-5.0); Bilirubin,Total 0.4 MG/DL (0.20-1.00); Calcium 11.4 MG/DL (8.5-10.1); Osmolality,Calculated 269.1 MOS/KG (273-304); Potassium 3.2 MMOL/L (3.5-5.1); Total Protein 6.1 G/DL (6.4-8.2)
[2021-10-17] MEDS: SODIUM CHLORIDE 0.9% 500 ML IV SCH (12:20)
[2021-10-17 12:46] LABS: West Nile Virus Ab, IgG, CSF Negative (Negative); West Nile Virus Ab, IgM, CSF Negative (Negative)
[2021-10-17] MEDS: DEXTROSE 5% IV SCH (15:14)
[2021-10-17] MEDS: AMPHOTERICIN B LIPOSOMAL IV SCH (15:14)
[2021-10-18] MEDS: FLUCYTOSINE 500 MG CAPSULE PO SCH ×3 (03:39→17:06)
[2021-10-18 05:41] LABS: Albumin 2.3 G/DL (3.4-5.0); Bilirubin,Total 0.6 MG/DL (0.20-1.00); Calcium 11.7 MG/DL (8.5-10.1); Osmolality,Calculated 267.1 MOS/KG (273-304); Potassium 3.3 MMOL/L (3.5-5.1); Total Protein 6.3 G/DL (6.4-8.2)
[2021-10-18] MEDS: SODIUM CHLOR 0.9% KCL 20 MEQ 20 MEQ/1,000 ML BAG IV SCH ×2 (07:14→18:38)
[2021-10-18] MEDS: RIFABUTIN 150 MG CAPSULE PO SCH (08:37)
[2021-10-18] MEDS: CITALOPRAM 20 MG TABLET PO SCH (08:37)
[2021-10-18] MEDS: ZINC SULFATE 220 MG CAPSULE PO SCH (08:37)
[2021-10-18] MEDS: MEGESTROL 400 MG/10 ML UDCUP PO SCH (08:37)
[2021-10-18] MEDS: ASCORBIC ACID 500 MG TABLET PO SCH (08:37)
[2021-10-18] MEDS: MULTIVITAMIN (CENTRUM) TABLET PO SCH (08:37)
[2021-10-18] MEDS: ZINC OXIDE PASTE 113 GM TUBE TOP SCH (11:42)
[2021-10-18] MEDS: SODIUM CHLORIDE 0.9% 500 ML IV SCH (11:43)
[2021-10-18] MEDS: DEXTROSE 5% IV SCH (14:27)
[2021-10-18] MEDS: AMPHOTERICIN B LIPOSOMAL IV SCH (14:27)
[2021-10-18 16:46] VITALS: BP 130/76
[2021-10-19 17:16] LABS: M. Tuberculosis PCR Result Negative (Negative); M. Tuberculosis PCR Source CEREBROSPINAL FLUID
== END 2021-10-18 19:56 | disposition hospice, home (50) | DRG 890 ==
LOC: N.ED 09:51 → SUATTDRO 11:48 → N.EDINP 11:48 → N.5E 15:32
PROVIDERS: ADMIT Internal Medicine; ATTEND Internal Medicine Geriatric Medicine